=== PATIENT | male | born 1935 | race Caucasian/White ===

== ENCOUNTER 2016-12-14 11:14 | Emergency (ER) | payer MEDICARE, OTHER ==
--- NOTE | 2016-12-14 11:23 | EDM.PDOC ---
[id number] FACE NUMBNESS Time Seen by Provider: 12/14/16 11:23 Source of Information: Reports: Patient, Old records, RN, RN notes reviewed History Limitations: Reports: No limitations - History of Present Illness INITIAL COMMENTS - FREE TEXT/NARRATIVE: Pt c/o generalized weakness for a week or two. Today pt came to the ER to see what the cause might be. He states he felt right sided face numbness yesterday, which is less today but still present. He c/o generalized weakness and fatigue, but yesterday he thought his left arm and leg were worse than the right. 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 Denies BRANCH, visual changes, radiating pain, back or neck pain, chest pain or edema. Timing/Duration: Reports: Week(s): (1-2) Quality (Neuro Complaint): Reports: numbness (Rt face), weakness (generalized) Severity: mild Improves with: Reports: None Worsens with: Reports: None Context, General: Denies: Activity, Exercise, Lifting, Sick contact, Trauma Associated Symptoms: Reports: no other symptoms - Related Data Allergies/ADRs: Allergies Allergy/AdvReac Type Severity Reaction Status Date / Time No Known Allergies Allergy Verified 09/24/16 18:28 Home Meds: Home Meds Carvedilol 12.5 mg PO BID 07/06/16 [History] Fish Oil/[place]-3 Fatty Acids [Fish Oil 1,000 MG] 1 cap PO DAILY 07/06/16 [ History] Furosemide [Lasix] 40 mg PO DAILY 07/06/16 [History] Isosorbide Mononitrate [Imdur] 30 mg PO DAILY 07/06/16 [History] Lisinopril 40 mg PO BEDTIME 07/06/16 [History] Multivitamin [Multiple Vitamins] 1 each PO DAILY 07/06/16 [History] atorvaSTATin [Lipitor] 40 mg PO BEDTIME 07/06/16 [History] Cholecalciferol (Vitamin D3) [Vitamin D3] 1,000 unit PO DAILY 09/24/16 [History] glipiZIDE [Glucotrol] 2.5 mg PO BIDMEALS 09/24/16 [History] Ascorbic Acid 500 mg PO DAILY 09/25/16 [History] Calcium Carbonate/Vitamin D3 [Calcium 600-Vit D3 800 Tablet] 1 each PO BID 09/25 [History] Cyanocobalamin (Vitamin B-12) [Vitamin B-12] 500 mcg PO DAILY 09/25/16 [History] Flaxseed/Omega3,6,9/Fatty Acid [Flax Seed Oil 1,300 mg Softgel] 1,300 mg PO DAILY PRN 09/25/16 [History] Fluocinonide [Lidex 0.05% Crm] 15 gm TOP BID PRN 09/25/16 [History] Magnesium 250 mg PO DAILY PRN 09/25/16 [History] Melatonin 5 mg PO BEDTIME PRN 09/25/16 [History] Levothyroxine 112 mcg PO ACBREAKFAST 12/14/16 [History] Past Medical History HEENT History: Reports: Cataract, Other (see below) Other HEENT History: wears glasses, hx of tonsilitis Cardiovascular History: Reports: Bypass, CAD, Heart Failure, High cholesterol, Hypertension, Stents Respiratory History: Reports: Bronchitis, recurrent, Other (see below) Other Respiratory History: hx of strep throat Musculoskeletal History: Reports: Arthritis, Fracture Endocrine/Metabolic History: Reports: Diabetes, type II Dermatologic History: Reports: Other (see below) Other Dermatologic History: heat rash - Infectious Disease History Infectious Disease History: Reports: Chicken pox, Measles, Mumps - Past Surgical History HEENT Surgical History: Reports: Cataract surgery, Other (see below) Other HEENT Surgeries/Procedures: Pt states that he gets injections into bilateral eyes q 2 month for "diabetic complications" Cardiovascular Surgical History: Reports: Coronary artery bypass, Other (see below) Other Cardiovascular Surgeries/Procedures: triple bypass Respiratory Surgical History: Reports: None Musculoskeletal Surgical History: Reports: None Social & Family History - Family History Family Medical History: Noncontributory - Tobacco Use Smoking Status *Q: Never Smoker Second Hand Smoke Exposure: No - Caffeine Use Caffeine Use: Reports: Coffee - Recreational Drug Use Recreational Drug Use: No - Living Situation & Occupation Living situation: Reports: single, alone Occupation: retired ED ROS GENERAL - Review of Systems Review Of Systems: ROS reveals no pertinent complaints other than HPI. ED EXAM, NEURO - Physical Exam Exam: See Below Exam Limited By: No limitations General Appearance: alert, WD/WN, no apparent distress, other (elderly, well appearing) Eye Exam: bilateral eye: EOMI, normal inspection, PERRL Ears: normal external exam, hearing grossly normal Nose: normal inspection, normal mucosa, no blood Throat/Mouth: Normal inspection, Normal lips, Normal teeth, Normal gums, Normal oropharynx, Normal voice, No airway compromise Head Exam: atraumatic, normocephalic Neck: normal inspection, supple, non-tender, full range of motion. No: lymphadenopathy (L), lymphadenopathy (R) Respiratory/Chest: no respiratory distress, lungs clear, normal breath sounds, no accessory muscle use, chest non-tender Cardiovascular: normal peripheral pulses, regular rate, rhythm, no edema, no gallop, no JVD, no murmur, no rub, extra beats (rare) GI/Abdominal: normal bowel sounds, soft, non tender, no organomegaly, no distention, no abnormal bruit, no mass Neurological: alert, normal mood/affect, normal dorsiflexion, CN II-XII intact, normal plantar flexion, normal reflexes, no motor/sensory deficits, oriented x 3 , other (walks with cane, steady gait) Back Exam: normal inspection, full range of motion, NT Psychiatric: normal affect, normal mood Skin Exam: Warm, Dry, Intact, Normal color, No rash EKG INTERPRETATION EKG Date: 12/14/16 Time: 12:23 Rhythm: other (sinus bradycardia) Rate (beats/min): 59 [place]: normal P-wave: present QRS: other (atrial premature complexes. LBBB) ST-T: normal QT: normal [place]/PQ Interval: First degree AV block. Comparison: NA - no prior EKG Course - Vital Signs Last Recorded V/S: Last Vital Signs Temp 36.8 C 12/14/16 11:48 Pulse 63 12/14/16 11:48 Resp 16 12/14/16 11:48 BP 151/70 H 12/14/16 11:48 Pulse Ox 94 L 12/14/16 11:48 - Orders/Labs/Meds Orders: Active Orders 24 hr Category Date Time Status EKG 12 Lead [EKG Documentation Completion] [RC] STAT Care 12/14/16 12:03 Active Labs: Laboratory Tests 12/14/16 12/14/16 12/14/16 Range/Units 12:15 12:15 13:33 WBC 5.7 (5.0-10.0) 10^3/uL RBC 3.37 L (4.6-6.2) 10^6/uL Hgb 9.8 L (14.0-18.0) g/dL Hct 31.6 L (40.0-54.0) % MCV 93.8 (80-100) fL MCH 29.1 (27.0-34.0) pg MCHC 31.0 L (33.0-35.0) g/dL Plt Count 166 (150-450) 10^3/uL Neut % (Auto) 47.7 (42.2-75.2) % Lymph % (Auto) 31.5 (20.5-50.1) % [place] % (Auto) 18.2 H (2-8) % Eos % (Auto) 2.1 (1.0-3.0) % Baso % (Auto) 0.5 (0.0-1.0) % Sodium 139 (135-145) mmol/L Potassium 4.2 (3.6-5.0) mmol/L Chloride 106 (101-111) mmol/L Carbon Dioxide 27.0 (21.0-31.0) mmol/L Anion Gap 10.2 BUN 33 H (7-18) mg/dL Creatinine 1.6 H (0.6-1.3) mg/dL Est Cr Clr Drug Dosing 35.03 mL/min Estimated GFR (MDRD) 42 BUN/Creatinine Ratio 20.62 Glucose 224 H (74-105) mg/dL Calcium 8.4 (8.4-10.2) mg/dl Total Bilirubin 0.4 (0.2-1.0) mg/dL AST 37 (10-42) IU/L ALT 26 (10-60) IU/L Alkaline Phosphatase 104 (42-121) IU/L Total Protein 6.6 L (6.7-8.2) g/dl Albumin 2.7 L (3.2-5.5) g/dl Globulin 3.9 Albumin/Globulin Ratio 0.69 Urine Color (YELLOW) Urine Appearance (CLEAR) Urine pH (5.0-9.0) Ur Specific [place] (1.005-1.030) Urine Protein (NEGATIVE) Urine Glucose (UA) (NEGATIVE) Urine Ketones (NEGATIVE) Urine Occult Blood (NEGATIVE) Urine Nitrite (NEGATIVE) Urine Bilirubin (NEGATIVE) Urine Urobilinogen (0.2-1.0) mg/dL Ur Leukocyte Esterase (NEGATIVE) Urine RBC /HPF Urine WBC (0-5/HPF) /HPF Ur Epithelial Cells /HPF Urine Mucus /LPF Urine Opiates Screen Negative (NEGATIVE) Ur Oxycodone Screen Negative (NEGATIVE) Urine Methadone Screen Negative (NEGATIVE) Ur Barbiturates Screen Negative (NEGATIVE) U Tricyclic Antidepress Negative (NEGATIVE) Ur Phencyclidine Scrn Negative (NEGATIVE) Ur Amphetamine Screen Negative (NEGATIVE) U Methamphetamines Scrn Negative (NEGATIVE) Urine MDMA Screen Negative (NEGATIVE) U Benzodiazepines Scrn Negative (NEGATIVE) Urine Cocaine Screen Negative (NEGATIVE) U Marijuana (THC) Screen Negative (NEGATIVE) 12/14/16 Range/Units 13:33 WBC (5.0-10.0) 10^3/uL RBC (4.6-6.2) 10^6/uL Hgb (14.0-18.0) g/dL Hct (40.0-54.0) % MCV (80-100) fL MCH (27.0-34.0) pg MCHC (33.0-35.0) g/dL Plt Count (150-450) 10^3/uL Neut % (Auto) (42.2-75.2) % Lymph % (Auto) (20.5-50.1) % [place] % (Auto) (2-8) % Eos % (Auto) (1.0-3.0) % Baso % (Auto) (0.0-1.0) % Sodium (135-145) mmol/L Potassium (3.6-5.0) mmol/L Chloride (101-111) mmol/L Carbon Dioxide (21.0-31.0) mmol/L Anion Gap BUN (7-18) mg/dL Creatinine (0.6-1.3) mg/dL Est Cr Clr Drug Dosing mL/min Estimated GFR (MDRD) BUN/Creatinine Ratio Glucose (74-105) mg/dL Calcium (8.4-10.2) mg/dl Total Bilirubin (0.2-1.0) mg/dL AST (10-42) IU/L ALT (10-60) IU/L Alkaline Phosphatase (42-121) IU/L Total Protein (6.7-8.2) g/dl Albumin (3.2-5.5) g/dl Globulin Albumin/Globulin Ratio Urine Color Yellow (YELLOW) Urine Appearance Slightly cloudy (CLEAR) Urine pH 5.0 (5.0-9.0) Ur Specific [place] 1.015 (1.005-1.030) Urine Protein 100 H (NEGATIVE) Urine Glucose (UA) Negative (NEGATIVE) Urine Ketones Negative (NEGATIVE) Urine Occult Blood Negative (NEGATIVE) Urine Nitrite Negative (NEGATIVE) Urine Bilirubin Negative (NEGATIVE) Urine Urobilinogen 0.2 (0.2-1.0) mg/dL Ur Leukocyte Esterase Trace H (NEGATIVE) Urine RBC 0-5 /HPF Urine WBC 5-10 H (0-5/HPF) /HPF Ur Epithelial Cells Rare /HPF Urine Mucus Rare /LPF Urine Opiates Screen (NEGATIVE) Ur Oxycodone Screen (NEGATIVE) Urine Methadone Screen (NEGATIVE) Ur Barbiturates Screen (NEGATIVE) U Tricyclic Antidepress (NEGATIVE) Ur Phencyclidine Scrn (NEGATIVE) Ur Amphetamine Screen (NEGATIVE) U Methamphetamines Scrn (NEGATIVE) Urine MDMA Screen (NEGATIVE) U Benzodiazepines Scrn (NEGATIVE) Urine Cocaine Screen (NEGATIVE) U Marijuana (THC) Screen (NEGATIVE) - Radiology Interpretation Free Text/Narrative:: CT head per rad report shows no CT evidence for acute intracranial pathology. CT Results Date: 12/14/16 - Re-Assessments/Exams Free Text/Narrative Re-Assessment/Exam: 12/14/16 I explained the exam findings, results of all diagnostic tests, working diagnosis, and any potential or additionally considered diagnoses, treatment/ disposition plan, self/home care instructions, rational for the diagnosis/ treatment plan/disposition plan, anticipated course of illness, and follow up instructions to the pt and/or pts family or guardian. The pt and/or pts family or guardian acknowledges understanding of the above explanation(s), and of the signs and symptoms which should prompt the return of the pt to the ER should those or any other concerning symptoms develop. Departure - Departure Time of Disposition: 14:03 Disposition: Home, Self-Care 01 Condition: fair Clinical Impression: Right facial numbness, Generalized weakness, Chronic anemia CKD (chronic kidney disease) Qualifiers: Chronic kidney disease stage: unspecified stage Qualified Code(s): N18.9 - Chronic kidney disease, unspecified Instructions: Weakness Forms: ED Department Discharge Additional Instructions: Watch for any worsening of symptoms, or development of new symptoms and return to the ER if needed. Follow up in clinic with your primary doctor in 2 to 3 days for recheck and further evaluation. - My Orders Last 24 Hours: My Active Orders 12/14/16 12:03 EKG 12 Lead [EKG Documentation Completion] [RC] STAT - Assessment/Plan Last 24 Hours: My Active Orders 12/14/16 12:03 EKG 12 Lead [EKG Documentation Completion] [RC] STAT
[2016-12-14 11:49] VITALS: BP 151/70
--- NOTE | 2016-12-16 07:20 | EKG ---
12/14/2016- SCOUT MIKE - EKG done on an 81-year-old male, showing sinus bradycardia, heart rate of 59 beats per minute, left bundle branch block, and first-degree AV block. [facility] /[id number]
== END 2016-12-14 14:27 | disposition home or self-care (01) ==
LOC: DL.ED 11:14
DX: R53.1 Weakness (principal); R20.0 Anesthesia of skin; I13.0 Hypertensive heart and chronic kidney disease with heart failure and stage 1 through stage 4 chronic kidney disease, or unspecified chronic kidney disease; E11.22 Type 2 diabetes mellitus with diabetic chronic kidney disease; N18.9 Chronic kidney disease, unspecified; I50.9 Heart failure, unspecified; D64.9 Anemia, unspecified; I25.810 Atherosclerosis of coronary artery bypass graft(s) without angina pectoris; E78.00 Pure hypercholesterolemia, unspecified; M19.90 Unspecified osteoarthritis, unspecified site; E11.9 Type 2 diabetes mellitus without complications; Z79.899 Other long term (current) drug therapy; Z98.49 Cataract extraction status, unspecified eye
CPT/HCPCS: 36415; 70450; 80053; 80305; 81001; 85025; 93005; 93010; 99283; 99284

== ENCOUNTER 2017-01-07 12:40 | Emergency (ER) | payer MEDICARE, OTHER ==
[2017-01-07] MEDS: Sodium Chloride 0.9% 1,000 ML IV SCH ×2 (13:00→14:42)
[2017-01-07 13:28] LABS: CHLORIDE,CL 104 mmol/L (101-111); SODIUM,NA 135 mmol/L (135-145)
[2017-01-07] MEDS ORDERED: Norepinephrine 4 MG in Dextrose 5% in Water 246 ML IV SCH ×2 (13:45)
[2017-01-07 14:09] VITALS: BP 108/41
--- NOTE | 2017-01-07 14:10 | EDM.PDOC ---
ED HPI GENERAL MEDICAL PROBLEM - General Chief Complaint: Cardiovascular Problem Stated Complaint: [id number] CHEST PAIN SOB LOW BP Time Seen by Provider: 01/07/17 13:00 Source of Information: Reports: Patient, Family History Limitations: Reports: No Limitations - History of Present Illness INITIAL COMMENTS - FREE TEXT/NARRATIVE: This 81 yo male patient reports to the ED with increased shortness of breath, chest discomfort and low blood pressure. The patient's daughter reports the patient has been having less energy throughout the week. The patient was recently in [facility] for a stroke. During that visit, the patient had an MRI, an Echo and eventually had a VQ scan. The patient's daughter reports the patient has continued to get worse (lower energy and increased shortness of breath). Onset: Gradual Duration: Week(s):, Constant, Getting Worse Location: Reports: Generalized Quality: Reports: Dull Severity: Moderate Improves with: Reports: None Worsens with: Reports: None Associated Symptoms: Reports: Other - Related Data Allergies Allergy/AdvReac Type Severity Reaction Status Date / Time No Known Allergies Allergy Verified 09/24/16 18:28 Home Meds: Home Meds Fish Oil/[place]-3 Fatty Acids [Fish Oil 1,000 MG] 1 cap PO DAILY 07/06/16 [ History] Furosemide [Lasix] 40 mg PO BID 07/06/16 [History] Isosorbide Mononitrate [Imdur] 30 mg PO BID 07/06/16 [History] Lisinopril 40 mg PO DAILY 07/06/16 [History] Multivitamin [Multiple Vitamins] 1 each PO DAILY 07/06/16 [History] atorvaSTATin [Lipitor] 40 mg PO BEDTIME 07/06/16 [History] Cholecalciferol (Vitamin D3) [Vitamin D3] 1,000 unit PO DAILY 09/24/16 [History] glipiZIDE [Glucotrol] 2.5 mg PO BIDMEALS 09/24/16 [History] Ascorbic Acid 500 mg PO DAILY 09/25/16 [History] Calcium Carbonate/Vitamin D3 [Calcium 600-Vit D3 800 Tablet] 800 units PO BID [History] Cyanocobalamin (Vitamin B-12) [Vitamin B-12] 500 mcg PO DAILY 09/25/16 [History] Flaxseed/Omega3,6,9/Fatty Acid [Flax Seed Oil 1,300 mg Softgel] 1,300 mg PO DAILY PRN 09/25/16 [History] Fluocinonide [Lidex 0.05% Crm] 15 gm TOP BID PRN 09/25/16 [History] Magnesium 250 mg PO DAILY PRN 09/25/16 [History] Melatonin 5 mg PO BEDTIME PRN 09/25/16 [History] Levothyroxine 112 mcg PO ACBREAKFAST 12/14/16 [History] Carvedilol 1.5 tab PO BID 01/07/17 [History] Potassium Chloride 20 meq PO BID 01/07/17 [History] Past Medical History HEENT History: Reports: Cataract Other HEENT History: wears glasses, hx of tonsilitis Cardiovascular History: Reports: Bypass, CAD, Heart Failure, High Cholesterol, Hypertension, Stents Respiratory History: Reports: Bronchitis, Recurrent Other Respiratory History: hx of strep throat Musculoskeletal History: Reports: Arthritis, Fracture Endocrine/Metabolic History: Reports: Diabetes, Type II Dermatologic History: Reports: Other (See Below) Other Dermatologic History: heat rash - Infectious Disease History Infectious Disease History: Reports: Chicken Pox, Measles, Mumps - Past Surgical History HEENT Surgical History: Reports: Cataract Surgery Cardiovascular Surgical History: Reports: Coronary Artery Bypass Musculoskeletal Surgical History: Reports: None Social & Family History - Family History Family Medical History: Noncontributory - Tobacco Use Smoking Status *Q: Former Smoker Used Tobacco, but Quit: Yes Month Tobacco Last Used: October Second Hand Smoke Exposure: No - Caffeine Use Caffeine Use: Reports: Coffee - Recreational Drug Use Recreational Drug Use: No - Living Situation & Occupation Living situation: Reports: Single, Alone Occupation: Retired ED ROS GENERAL - Review of Systems Review Of Systems: ROS reveals no pertinent complaints other than HPI. ED EXAM, GENERAL - Physical Exam Exam: See Below Exam Limited By: No Limitations General Appearance: Alert, WD/WN, Severe Distress, Thin Eye Exam: Bilateral Eye: EOMI, Normal Inspection, PERRL Ears: Normal External Exam, Normal Canal, Hearing Grossly Normal, Normal TMs Nose: Normal Inspection, Normal Mucosa, No Blood Throat/Mouth: Normal Inspection, Normal Lips, Normal Teeth, Normal Gums, Normal Oropharynx, Normal Voice, No Airway Compromise Head: Atraumatic, Normocephalic Neck: Normal Inspection, Supple, Non-Tender, Full Range of Motion Respiratory/Chest: No Respiratory Distress, No Accessory Muscle Use, Chest Non- Tender, Decreased Breath Sounds Cardiovascular: Normal Peripheral Pulses, Regular Rate, Rhythm, No Edema, No Gallop, No JVD, No Rub, Systolic Murmur GI/Abdominal: Normal Bowel Sounds, Soft, Non-Tender, No Organomegaly, No Distention, No Abnormal Bruit, No Mass (Male) Exam: Deferred Rectal (Males) Exam: Deferred Back Exam: Normal Inspection, Full Range of Motion, NT Extremities: Normal Inspection, Normal Range of Motion, Non-Tender, Normal Capillary Refill, No Pedal Edema Neurological: Alert, Oriented, CN II-XII Intact, Normal Cognition Psychiatric: Normal Affect, Normal Mood Skin Exam: Warm, Dry, Intact, Normal Color, No Rash Lymphatic: No Adenopathy Course - Vital Signs Last Recorded V/S: Last Vital Signs Temp 36.3 C 01/07/17 12:56 Pulse 67 01/07/17 12:56 Resp 18 01/07/17 14:09 BP 108/41 L 01/07/17 14:09 Pulse Ox 94 L 01/07/17 14:09 - Orders/Labs/Meds Orders: Active Orders 24 hr Category Date Time Status EKG Documentation Completion [RC] URGENT Care 01/07/17 12:50 Active Norepinephrine 4 MG in D5W @ 2 MCG/MIN(250ml) Med 01/07/17 13:45 Ordered Norepinephrine [Levophed] 4 mg Dextrose 5% in Water 246 ml IV TITRATE Medication Orders Norepinephrine Bitartrate 4 mg (/ Dextrose/Water) 250 mls @ 7.5 mls/hr IV TITRATE IRAJ; 2 MCG/MIN PRN Reason: Protocol Last Admin: 01/07/17 13:55 Dose: 2 mcg/min, 7.5 mls/hr Labs: Laboratory Tests 01/07/17 01/07/17 01/07/17 Range/Units 12:54 12:54 12:54 WBC 7.0 (5.0-10.0) 10^3/uL RBC 3.97 L (4.6-6.2) 10^6/uL Hgb 11.5 L (14.0-18.0) g/dL Hct 35.8 L (40.0-54.0) % MCV 90.2 (80-100) fL MCH 29.0 (27.0-34.0) pg MCHC 32.1 L (33.0-35.0) g/dL Plt Count 199 (150-450) 10^3/uL Neut % (Auto) 51.6 (42.2-75.2) % Lymph % (Auto) 26.3 (20.5-50.1) % [place] % (Auto) 20.0 H (2-8) % Eos % (Auto) 1.7 (1.0-3.0) % Baso % (Auto) 0.4 (0.0-1.0) % D-Dimer, Quantitative 1340 H (0-400) ng/mL Sodium 135 (135-145) mmol/L Potassium 5.2 H (3.6-5.0) mmol/L Chloride 104 (101-111) mmol/L Carbon Dioxide 21.0 (21.0-31.0) mmol/L Anion Gap 15.2 BUN 94 H (7-18) mg/dL Creatinine 2.1 H (0.6-1.3) mg/dL Est Cr Clr Drug Dosing TNP Estimated GFR (MDRD) 30 BUN/Creatinine Ratio 44.76 Glucose 242 H (74-105) mg/dL Calcium 8.8 (8.4-10.2) mg/dl Total Bilirubin 0.5 (0.2-1.0) mg/dL AST 46 H (10-42) IU/L ALT 40 (10-60) IU/L Alkaline Phosphatase 113 (42-121) IU/L Troponin I 0.03 H* (0.00-0.02) ng/ml B-Natriuretic Peptide 229 H (0-100) pg/ml Total Protein 7.6 (6.7-8.2) g/dl Albumin 2.9 L (3.2-5.5) g/dl Globulin 4.7 Albumin/Globulin Ratio 0.62 Meds: Medications Generic Name Dose Route Start Last Admin Trade Name Freq PRN Reason Stop Dose Admin Norepinephrine Bitartrate 4 mg 250 mls @ 7.5 mls/hr 01/07/17 13:45 01/07/17 13:55 / Dextrose/Water IV 2 mcg/min TITRATE IRAJ 7.5 mls/hr Protocol Administration 2 MCG/MIN - Re-Assessments/Exams Free Text/Narrative Re-Assessment/Exam: 01/07/17 14:13 [employer] helicopter is currently on another call. [employer] fixed wing reports 80 minutes out. A call was placed to [facility] to have their flight team come to [place] to supervisor opening and picking the patient. Departure - Departure Time of Disposition: 14:10 Disposition: DC/Tfer to Acute Hospital 02 Reason for Transfer *Q: Other Condition: serious Clinical Impression: Shortness of breath Hypotension Qualifiers: Hypotension type: unspecified hypotension type Qualified Code(s): I95.9 - Hypotension, unspecified Forms: Interfacility Transfer EMTALA Care Plan Goals: Discussed the history, examination, lab and EKG results with Dr. Hernandez ( [facility] ED provider). Dr. Hernandez accepted the patient for transfer to [facility] in [place]. The crew from [facility] ([place]) will be transporting the patient to [place]. - My Orders Last 24 Hours: My Active Orders 01/07/17 12:50 EKG Documentation Completion [RC] URGENT 01/07/17 13:45 Norepinephrine 4 MG in D5W @ 2 MCG/MIN(250ml) Norepinephrine [Levophed] 4 mg Dextrose 5% in Water 246 ml IV TITRATE - Assessment/Plan Last 24 Hours: My Active Orders 01/07/17 12:50 EKG Documentation Completion [RC] URGENT 01/07/17 13:45 Norepinephrine 4 MG in D5W @ 2 MCG/MIN(250ml) Norepinephrine [Levophed] 4 mg Dextrose 5% in Water 246 ml IV TITRATE
--- NOTE | 2017-01-10 14:22 | EKG ---
01/07/2017 - SCOUT MIKE - EKG per my reading, shows left bundle-branch block. [facility] /[id number]
== END 2017-01-07 15:20 ==
LOC: DL.ED 12:40
DX: I95.9 Hypotension, unspecified (principal); I25.10 Atherosclerotic heart disease of native coronary artery without angina pectoris; E78.00 Pure hypercholesterolemia, unspecified; I11.0 Hypertensive heart disease with heart failure; I50.9 Heart failure, unspecified; E11.9 Type 2 diabetes mellitus without complications; M19.90 Unspecified osteoarthritis, unspecified site; Z79.899 Other long term (current) drug therapy; Z98.49 Cataract extraction status, unspecified eye; Z95.1 Presence of aortocoronary bypass graft; Z87.891 Personal history of nicotine dependence
CPT/HCPCS: 36415; 80053; 83880; 84484; 85025; 85379; 93005; 96361; 96365; 99285; J7030; J7060; 93010; 99284

== ENCOUNTER 2018-03-04 17:50 | Emergency (ER) | payer OTHER, MEDICARE ==
[2018-03-04 18:17] VITALS: BP 149/67
--- NOTE | 2018-03-04 18:37 | EDM.PDOC ---
ED HPI GENERAL MEDICAL PROBLEM - General Chief Complaint: Eye Problems Stated Complaint: RED EYE Time Seen by Provider: 03/04/18 18:25 Source of Information: Reports: Patient History Limitations: Reports: No Limitations - History of Present Illness INITIAL COMMENTS - FREE TEXT/NARRATIVE: This 82 yo male patient reports to the ED with redness in his left eye for the past 2 days. The patient reports that he does not have any pain and has not noticed any drainage from the eye. The patient denies any falls or trauma to the eye. Onset Date: 03/02/18 Location: Reports: Face Severity: Mild Improves with: Reports: None Worsens with: Reports: None Associated Symptoms: Reports: No Other Symptoms - Related Data Allergies Allergy/AdvReac Type Severity Reaction Status Date / Time No Known Allergies Allergy Verified 09/24/16 18:28 Home Meds: Home Meds Fish Oil/[place]-3 Fatty Acids [Fish Oil 1,000 MG] 1 cap PO DAILY 07/06/16 [ History] Furosemide [Lasix] 40 mg PO BID 07/06/16 [History] Isosorbide Mononitrate [Imdur] 30 mg PO BID 07/06/16 [History] Lisinopril 40 mg PO DAILY 07/06/16 [History] Multivitamin [Multiple Vitamins] 1 each PO DAILY 07/06/16 [History] atorvaSTATin [Lipitor] 40 mg PO BEDTIME 07/06/16 [History] Cholecalciferol (Vitamin D3) [Vitamin D3] 1,000 unit PO DAILY 09/24/16 [History] glipiZIDE [Glucotrol] 2.5 mg PO BIDMEALS 09/24/16 [History] Ascorbic Acid 500 mg PO DAILY 09/25/16 [History] Calcium Carbonate/Vitamin D3 [Calcium 600-Vit D3 800 Tablet] 800 units PO BID [History] Cyanocobalamin (Vitamin B-12) [Vitamin B-12] 500 mcg PO DAILY 09/25/16 [History] Flaxseed/Omega3,6,9/Fatty Acid [Flax Seed Oil 1,300 mg Softgel] 1,300 mg PO DAILY PRN 09/25/16 [History] Fluocinonide [Lidex 0.05% Crm] 15 gm TOP BID PRN 09/25/16 [History] Magnesium 250 mg PO DAILY PRN 09/25/16 [History] Melatonin 5 mg PO BEDTIME PRN 09/25/16 [History] Levothyroxine 112 mcg PO ACBREAKFAST 12/14/16 [History] Carvedilol 1.5 tab PO BID 01/07/17 [History] Potassium Chloride 20 meq PO BID 01/07/17 [History] Past Medical History HEENT History: Reports: Cataract Other HEENT History: wears glasses, hx of tonsilitis Cardiovascular History: Reports: Bypass, CAD, Heart Failure, High Cholesterol, Hypertension, Stents Respiratory History: Reports: Bronchitis, Recurrent Other Respiratory History: hx of strep throat Musculoskeletal History: Reports: Arthritis, Fracture Endocrine/Metabolic History: Reports: Diabetes, Type II Dermatologic History: Reports: Other (See Below) Other Dermatologic History: heat rash - Infectious Disease History Infectious Disease History: Reports: Chicken Pox, Measles, Mumps - Past Surgical History HEENT Surgical History: Reports: Cataract Surgery Cardiovascular Surgical History: Reports: Coronary Artery Bypass Musculoskeletal Surgical History: Reports: None Social & Family History - Family History Family Medical History: Noncontributory - Tobacco Use Smoking Status *Q: Never Smoker - Caffeine Use Caffeine Use: Reports: Coffee, Soda, Tea - Recreational Drug Use Recreational Drug Use: No - Living Situation & Occupation Living situation: Reports: Single, Alone Occupation: Retired ED ROS GENERAL - Review of Systems Review Of Systems: ROS reveals no pertinent complaints other than HPI. ED EXAM GENERAL W FULL EYE - Physical Exam Exam: See Below Exam Limited By: No Limitations General Appearance: Alert, WD/WN, No Apparent Distress Eye Exam: Left Eye: Conjunctival Injection, Bilateral Eye: EOMI, PERRL Conjunctiva & Sclera: Right: Normal Appearance, Left: Conjunctival Edema Cornea Exam: Bilateral: Normal Appearance Extraocular Movements: Bilateral: Intact Pupils: Normal Accommodation Pupillary Reaction: Bilateral: Brisk Ears: Normal External Exam, Normal Canal, Hearing Grossly Normal, Normal TMs Nose: Normal Inspection, Normal Mucosa, No Blood Throat/Mouth: Normal Inspection, Normal Lips, Normal Teeth, Normal Gums, Normal Oropharynx, Normal Voice, No Airway Compromise Head: Atraumatic, Normocephalic Neck: Normal Inspection, Supple, Non-Tender, Full Range of Motion Respiratory/Chest: No Respiratory Distress, Lungs Clear, Normal Breath Sounds, No Accessory Muscle Use, Chest Non-Tender Cardiovascular: Normal Peripheral Pulses, Regular Rate, Rhythm, No Edema, No Gallop, No JVD, No Rub, Systolic Murmur GI/Abdominal: Normal Bowel Sounds, Soft, Non-Tender, No Organomegaly, No Distention, No Abnormal Bruit, No Mass (Male) Exam: Deferred Rectal (Males) Exam: Deferred Back Exam: Normal Inspection, Full Range of Motion, NT Extremities: Normal Inspection, Normal Range of Motion, Non-Tender, Normal Capillary Refill, No Pedal Edema Neurological: Alert, Oriented, CN II-XII Intact, Normal Cognition, Normal Gait, Normal Reflexes, No Motor/Sensory Deficits Psychiatric: Normal Affect, Normal Mood Skin Exam: Warm, Dry, Intact, Normal Color, No Rash Lymphatic: No Adenopathy Course - Vital Signs Last Recorded V/S: Last Vital Signs Temp 37.3 C 03/04/18 18:15 Pulse 84 03/04/18 18:15 Resp 18 03/04/18 18:15 BP 149/67 H 03/04/18 18:15 Pulse Ox 96 03/04/18 18:15 Departure - Departure Time of Disposition: 18:33 Disposition: Home, Self-Care 01 Condition: Fair Clinical Impression: Scleral hemorrhage of left eye - Discharge Information *PRESCRIPTION DRUG MONITORING PROGRAM REVIEWED*: Not Applicable *COPY OF PRESCRIPTION DRUG MONITORING REPORT IN PATIENT ANDREW: Not Applicable Instructions: Subconjunctival Hemorrhage Referrals: PCP,None [Primary Care Provider] - Forms: ED Department Discharge Care Plan Goals: The patient was advised of the examination results during the visit. The patient was encouraged to continue to monitor his eye for any additional symptoms or drainage. If the patient has any additional symptoms or concerns, the patient should follow-up with his primary care facility or return to the emergency department.
== END 2018-03-04 18:40 | disposition home or self-care (01) ==
LOC: DL.ED 17:50
DX: H11.32 Conjunctival hemorrhage, left eye (principal); I11.0 Hypertensive heart disease with heart failure; I50.9 Heart failure, unspecified; I25.10 Atherosclerotic heart disease of native coronary artery without angina pectoris; E11.9 Type 2 diabetes mellitus without complications; Z95.1 Presence of aortocoronary bypass graft; Z79.899 Other long term (current) drug therapy; Z79.84 Long term (current) use of oral hypoglycemic drugs
CPT/HCPCS: 99282

== ENCOUNTER 2018-12-05 11:26 | Emergency (ER) | payer MEDICARE, OTHER ==
--- NOTE | 2018-12-05 12:45 | EDM.PDOC ---
ED HPI GENERAL MEDICAL PROBLEM - General Chief Complaint: Cardiovascular Problem Stated Complaint: HIGH BP Time Seen by Provider: 12/05/18 12:35 Source of Information: Reports: Patient History Limitations: Reports: No Limitations - History of Present Illness INITIAL COMMENTS - FREE TEXT/NARRATIVE: This 83 yo male patient [facility] elevated blood pressure (236/91) and having increased weakness. The patient reports he has not been feeling well for the past 2 weeks, but noticed his blood pressure and blood sugar were both elevated this morning. The patient reports he took all medications as prescribed this morning at 0630. The patient reports his blood pressure normally runs in the 140's systolic. The patient denies any chest pain , cough or other symptoms at this time. Onset: Today Duration: Week(s): (2 weeks of increased weakness) Location: Reports: Other Quality: Reports: Other Severity: Moderate Improves with: Reports: None Worsens with: Reports: None Context: Reports: Other Associated Symptoms: Reports: No Other Symptoms - Related Data Allergies Allergy/AdvReac Type Severity Reaction Status Date / Time No Known Allergies Allergy Verified 12/05/18 11:57 Home Meds: Home Meds Fish Oil/[place]-3 Fatty Acids [Fish Oil 1,000 MG] 1 cap PO DAILY 07/06/16 [ History] Furosemide [Lasix] 40 mg PO BID 07/06/16 [History] Isosorbide Mononitrate [Imdur] 30 mg PO BID 07/06/16 [History] Lisinopril 40 mg PO DAILY 07/06/16 [History] Multivitamin [Multiple Vitamins] 1 each PO DAILY 07/06/16 [History] atorvaSTATin [Lipitor] 40 mg PO BEDTIME 07/06/16 [History] Cholecalciferol (Vitamin D3) [Vitamin D3] 1,000 unit PO DAILY 09/24/16 [History] glipiZIDE [Glucotrol] 2.5 mg PO BIDMEALS 09/24/16 [History] Ascorbic Acid 500 mg PO DAILY 09/25/16 [History] Calcium Carbonate/Vitamin D3 [Calcium 600-Vit D3 800 Tablet] 800 units PO BID [History] Cyanocobalamin (Vitamin B-12) [Vitamin B-12] 500 mcg PO DAILY 09/25/16 [History] Flaxseed/Omega3,6,9/Fatty Acid [Flax Seed Oil 1,300 mg Softgel] 1,300 mg PO DAILY PRN 09/25/16 [History] Fluocinonide [Lidex 0.05% Crm] 15 gm TOP BID PRN 09/25/16 [History] Magnesium 250 mg PO DAILY PRN 09/25/16 [History] Melatonin 5 mg PO BEDTIME PRN 09/25/16 [History] Levothyroxine 112 mcg PO ACBREAKFAST 12/14/16 [History] Carvedilol 1.5 tab PO BID 01/07/17 [History] Potassium Chloride 20 meq PO BID 01/07/17 [History] Past Medical History HEENT History: Reports: Cataract Other HEENT History: wears glasses, hx of tonsilitis Cardiovascular History: Reports: Bypass, CAD, Heart Failure, High Cholesterol, Hypertension, Stents Respiratory History: Reports: Bronchitis, Recurrent Other Respiratory History: hx of strep throat Gastrointestinal History: Reports: None Genitourinary History: Reports: None Musculoskeletal History: Reports: Arthritis, Fracture Neurological History: Reports: None Psychiatric History: Reports: None Endocrine/Metabolic History: Reports: Diabetes, Type II Hematologic History: Reports: None Immunologic History: Reports: None Oncologic (Cancer) History: Reports: None Dermatologic History: Reports: Other (See Below) Other Dermatologic History: heat rash - Infectious Disease History Infectious Disease History: Reports: Chicken Pox, Measles, Mumps - Past Surgical History Head Surgeries/Procedures: Reports: None HEENT Surgical History: Reports: Cataract Surgery Cardiovascular Surgical History: Reports: Coronary Artery Bypass Musculoskeletal Surgical History: Reports: None Social & Family History - Family History Family Medical History: Noncontributory - Tobacco Use Smoking Status *Q: Unknown Ever Smoked - Caffeine Use Caffeine Use: Reports: None - Recreational Drug Use Recreational Drug Use: No - Living Situation & Occupation Living situation: Reports: Single, Alone Occupation: Retired ED ROS GENERAL - Review of Systems Review Of Systems: ROS reveals no pertinent complaints other than HPI. ED EXAM, GENERAL - Physical Exam Exam: See Below Exam Limited By: No Limitations General Appearance: Alert, WD/WN, No Apparent Distress Eye Exam: Bilateral Eye: EOMI, Normal Inspection, PERRL Ears: Normal External Exam Nose: Normal Inspection, Normal Mucosa, No Blood Throat/Mouth: Normal Inspection, Normal Lips, Normal Teeth, Normal Gums, Normal Oropharynx, Normal Voice, No Airway Compromise Head: Atraumatic, Normocephalic Respiratory/Chest: No Respiratory Distress, Lungs Clear, Normal Breath Sounds, No Accessory Muscle Use, Chest Non-Tender Cardiovascular: Normal Peripheral Pulses, No Edema, No Gallop, No JVD, No Rub, Systolic Murmur, Irregularly Irregular GI/Abdominal: Normal Bowel Sounds, Soft, Non-Tender, No Organomegaly, No Distention, No Abnormal Bruit, No Mass (Male) Exam: Deferred Rectal (Males) Exam: Deferred Back Exam: Normal Inspection, Full Range of Motion, NT Extremities: Normal Inspection, Normal Range of Motion, Non-Tender, Normal Capillary Refill, No Pedal Edema Neurological: Alert, Oriented, CN II-XII Intact, Normal Cognition, Normal Gait, Normal Reflexes, No Motor/Sensory Deficits Psychiatric: Normal Affect, Normal Mood Skin Exam: Warm, Dry, Intact, Normal Color, No Rash Lymphatic: No Adenopathy Course - Vital Signs Last Recorded V/S: Last Vital Signs Temp 36.9 C 12/05/18 13:14 Pulse 69 12/05/18 13:14 Resp 22 H 12/05/18 13:14 BP 203/76 H 12/05/18 13:40 Pulse Ox 92 L 12/05/18 13:14 - Orders/Labs/Meds Orders: Active Orders 24 hr Category Date Time Status EKG Documentation Completion [RC] URGENT Care 12/05/18 12:40 Ordered CULTURE URINE [RM] Urgent Lab 12/05/18 13:06 Received Heparin Sodium/0.45% NaCl [Heparin 25,000 Units in 1/2 Med 12/05/18 13:30 Ordered NS 500 ML] 25,000 units in 500 ml IV ONETIME Medication Orders Heparin Sodium/Sodium Chloride (Heparin 25,000 Units In 1/2 Ns 500 Ml) 25,000 units in 500 mls @ 18.833 mls/hr IV ONETIME ONE Stop: 12/06/18 16:02 Last Admin: 12/05/18 13:40 Dose: 12 units/kg/hr, 18.833 mls/hr Labs: Laboratory Tests 12/05/18 12/05/18 12/05/18 Range/Units 12:49 12:49 13:06 WBC 5.2 (5.0-10.0) 10^3/uL RBC 4.13 L (4.6-6.2) 10^6/uL Hgb 12.3 L (14.0-18.0) g/dL Hct 38.0 L (40.0-54.0) % MCV 92.0 (80-100) fL MCH 29.8 (27.0-34.0) pg MCHC 32.4 L (33.0-35.0) g/dL Plt Count 161 (150-450) 10^3/uL Neut % (Auto) 45.2 (42.2-75.2) % Lymph % (Auto) 30.4 (20.5-50.1) % [place] % (Auto) 20.3 H (2-8) % Eos % (Auto) 3.7 H (1.0-3.0) % Baso % (Auto) 0.4 (0.0-1.0) % Add Manual Diff Yes Neutrophils % (Manual) 45 (42-75) % Lymphocytes % (Manual) 26 (20-50) % Monocytes % (Manual) 26 H (2-8) % Eosinophils % (Manual) 3 (1-3) % Sodium 139 (135-145) mmol/L Potassium 3.9 (3.6-5.0) mmol/L Chloride 104 (101-111) mmol/L Carbon Dioxide 25.0 (21.0-31.0) mmol/L Anion Gap 13.9 BUN 29 H D (7-18) mg/dL Creatinine 1.4 H (0.6-1.3) mg/dL Est Cr Clr Drug Dosing 38.68 mL/min Estimated GFR (MDRD) 48 BUN/Creatinine Ratio 20.71 Glucose 92 (74-105) mg/dL Calcium 8.5 (8.4-10.2) mg/dl Total Bilirubin 0.8 (0.2-1.0) mg/dL AST 29 (10-42) IU/L ALT 15 (10-60) IU/L Alkaline Phosphatase 91 (42-121) IU/L Troponin I 0.24 H* (0.00-0.02) ng/ml Total Protein 7.2 (6.7-8.2) g/dl Albumin 2.9 L (3.2-5.5) g/dl Globulin 4.3 Albumin/Globulin Ratio 0.67 Urine Color Dark yellow (YELLOW) Urine Appearance Slightly cloudy (CLEAR) Urine pH 5.5 (5.0-9.0) Ur Specific [place] 1.020 (1.005-1.030) Urine Protein >=300 H (NEGATIVE) Urine Glucose (UA) 100 H (NEGATIVE) Urine Ketones Negative (NEGATIVE) Urine Occult Blood Negative (NEGATIVE) Urine Nitrite Negative (NEGATIVE) Urine Bilirubin Negative (NEGATIVE) Urine Urobilinogen 1.0 (0.2-1.0) mg/dL Ur Leukocyte Esterase Small H (NEGATIVE) Urine RBC 5-10 H /HPF Urine WBC 10-20 H (0-5/HPF) /HPF Ur Epithelial Cells Few /HPF Urine Bacteria Few (0-FEW/HPF) /HPF Hyaline Casts Moderate H /LPF Urine Mucus Rare /LPF Meds: Medications Generic Name Dose Route Start Last Admin Trade Name Freq PRN Reason Stop Dose Admin Heparin Sodium/Sodium Chloride 25,000 units in 500 mls @ 18.833 mls/hr 13:30 12/05/18 13:40 Heparin 25,000 Units In 1/2 Ns 500 Ml IV 12/06/18 16:02 12 units/kg/hr ONETIME ONE 18.833 mls/hr Administration 12 UNITS/KG/HR Discontinued Medications Generic Name Dose Route Start Last Admin Trade Name Freq PRN Reason Stop Dose Admin Aspirin 324 mg 12/05/18 13:28 12/05/18 13:37 Aspirin PO 12/05/18 13:29 324 mg ONETIME ONE Administration Heparin Sodium (Porcine) 4,000 units 12/05/18 13:28 12/05/18 13:37 Heparin Sodium IVPUSH 12/05/18 13:29 4,000 units .BOLUS ONE Administration Nitroglycerin 0.4 mg 12/05/18 13:37 12/05/18 13:40 Nitrostat SL 12/05/18 13:38 0.4 mg ONETIME ONE Administration Departure - Departure Time of Disposition: 13:42 Disposition: DC/Tfer to Acute Hospital 02 Reason for Transfer *Q: Other Condition: Serious Clinical Impression: Hypertensive emergency, NSTEMI (non-ST elevated myocardial infarction), Elevated troponin Forms: Interfacility Transfer EMTALA Care Plan Goals: Discussed the patient's history, examination, lab, EKG and current treatments with Dr. Bhakta ([facility] ED). Dr. Bhakta advised to give the patient a dose of sublingual Nitro to lower the patient's blood pressure. The patient will be transported by [facility]. - My Orders Last 24 Hours: My Active Orders 12/05/18 12:40 EKG Documentation Completion [RC] URGENT 12/05/18 13:06 CULTURE URINE [RM] Urgent 12/05/18 13:30 Heparin Sodium/0.45% NaCl [Heparin 25,000 Units in 1/2 NS 500 ML] 25,000 units in 500 ml IV ONETIME - Assessment/Plan Last 24 Hours: My Active Orders 12/05/18 12:40 EKG Documentation Completion [RC] URGENT 12/05/18 13:06 CULTURE URINE [RM] Urgent 12/05/18 13:30 Heparin Sodium/0.45% NaCl [Heparin 25,000 Units in 1/2 NS 500 ML] 25,000 units in 500 ml IV ONETIME
--- NOTE | 2018-12-05 13:12 | CR ---
Clinical history: 83-year-old hypertensive male with irregular heart beats. Interpretation: (Upright AP portable chest) abnormal but unchanged except for technique when compared to 12 March 2017 exam. Sternotomy wires and external cardiac cath tech leads. No new cephalization of vascular flow, signs of alveolar edema or dependent pleural fluid accumulation. No new lung mass, hilar lymphadenopathy or focal lobar pneumonia. No atelectasis/collapse. No pneumothorax. CONCLUSION: No acute new cardiopulmonary abnormality since PA film 12 March 2017
[2018-12-05 13:15] VITALS: PULSE 69
[2018-12-05 13:16] LABS: ANION GAP 13.9
[2018-12-05] MEDS ORDERED: Heparin Sodium 5,000 Units/ML Vial IVPUSH ONE (13:28)
[2018-12-05] MEDS ORDERED: Aspirin 81 MG Tab.Chew PO ONE (13:28)
[2018-12-05] MEDS ORDERED: Heparin Sodium/0.45% NaCl 25,000 UNITS/500 ML BAG IV ONE (13:30)
[2018-12-05] MEDS ORDERED: Nitroglycerin 0.4 MG Tab.SL SL ONE (13:37)
[2018-12-05 13:41] VITALS: BP 203/76
== END 2018-12-05 14:16 ==
LOC: DL.ED 11:26
DX: I21.4 Non-ST elevation (NSTEMI) myocardial infarction (principal); I16.1 Hypertensive emergency; R79.89 Other specified abnormal findings of blood chemistry; I11.0 Hypertensive heart disease with heart failure; I50.9 Heart failure, unspecified; I25.10 Atherosclerotic heart disease of native coronary artery without angina pectoris; E11.9 Type 2 diabetes mellitus without complications; Z79.899 Other long term (current) drug therapy; Z79.84 Long term (current) use of oral hypoglycemic drugs
CPT/HCPCS: 36415; 71045; 80053; 81001; 84484; 85025; 87086; 93005; 96365; 96376; 99285; A9270; J1644; 99284

== ENCOUNTER 2019-05-20 01:01 | Inpatient (IN) | payer OTHER, MEDICARE ==
--- NOTE | 2019-05-20 00:33 | EDM.PDOC ---
ED HPI GENERAL MEDICAL PROBLEM - General Chief Complaint: Chest Pain Stated Complaint: AMBULANCE Time Seen by Provider: 05/20/19 00:15 Source of Information: Reports: Patient History Limitations: Reports: No Limitations - History of Present Illness INITIAL COMMENTS - FREE TEXT/NARRATIVE: This 83 yo male patient was brought to the ED by [facility] due to increased shortness of breath and chest pain. The patient reports his symptoms started just before he called the ambulance as he was getting up to go to bed. The patient also reports he has had some shortness of breath with any exertion. The patient reports he feels better at this time, but continues to have "a little" chest pain (mid chest described as "pressure"). Onset: Today Duration: Minutes:, Improving Location: Reports: Chest Quality: Reports: Other Severity: Moderate Improves with: Reports: None Worsens with: Reports: None Context: Reports: Other Associated Symptoms: Reports: Chest Pain, Cough, Shortness of Breath Treatments TEAM MANAGER: Reports: Breathing Treatments (By ambulance) Left Lower Anterior Chest Pain Score (Numeric/FACES): 5 - Related Data Allergies Allergy/AdvReac Type Severity Reaction Status Date / Time No Known Allergies Allergy Verified 05/20/19 00:12 Home Meds: Home Meds Furosemide [Lasix] 20 mg PO DAILY 07/06/16 [History] Isosorbide Mononitrate [Imdur] 30 mg PO BID 07/06/16 [History] Lisinopril 10 mg PO BEDTIME 07/06/16 [History] atorvaSTATin [Lipitor] 40 mg PO BEDTIME 07/06/16 [History] glipiZIDE [Glucotrol] 2.5 mg PO BIDMEALS 09/24/16 [History] Levothyroxine 88 mcg PO ACBREAKFAST 12/14/16 [History] Carvedilol 6.25 mg PO BID 01/07/17 [History] Cetirizine [ZyrTEC] 5 mg PO DAILY 05/20/19 [History] Clopidogrel [Plavix] 75 mg PO DAILY 05/20/19 [History] Finasteride 5 mg PO DAILY 05/20/19 [History] Past Medical History HEENT History: Reports: Cataract Other HEENT History: wears glasses, hx of tonsilitis Cardiovascular History: Reports: Bypass, CAD, Heart Failure, High Cholesterol, Hypertension, Stents Respiratory History: Reports: Bronchitis, Recurrent Other Respiratory History: hx of strep throat Gastrointestinal History: Reports: None Genitourinary History: Reports: None Musculoskeletal History: Reports: Arthritis, Fracture Neurological History: Reports: None Psychiatric History: Reports: None Endocrine/Metabolic History: Reports: Diabetes, Type II Hematologic History: Reports: None Immunologic History: Reports: None Oncologic (Cancer) History: Reports: None Dermatologic History: Reports: Other (See Below) Other Dermatologic History: heat rash - Infectious Disease History Infectious Disease History: Reports: Chicken Pox, Measles, Mumps - Past Surgical History Head Surgeries/Procedures: Reports: None HEENT Surgical History: Reports: Cataract Surgery Cardiovascular Surgical History: Reports: Coronary Artery Bypass Musculoskeletal Surgical History: Reports: None Social & Family History - Family History Family Medical History: Noncontributory - Caffeine Use Caffeine Use: Reports: None - Living Situation & Occupation Living situation: Reports: Single, Alone Occupation: Retired ED ROS GENERAL - Review of Systems Review Of Systems: ROS reveals no pertinent complaints other than HPI. ED EXAM, GENERAL - Physical Exam Exam: See Below Exam Limited By: No Limitations General Appearance: Alert, WD/WN, Mild Distress Eye Exam: Bilateral Eye: EOMI, Normal Inspection, PERRL Ears: Normal External Exam, Normal Canal, Hearing Grossly Normal, Normal TMs Nose: Normal Inspection, Normal Mucosa, No Blood Throat/Mouth: Normal Inspection, Normal Lips, Normal Teeth, Normal Gums, Normal Oropharynx, Normal Voice, No Airway Compromise Head: Atraumatic, Normocephalic Neck: Normal Inspection, Supple, Non-Tender, Full Range of Motion Respiratory/Chest: Normal Breath Sounds, No Accessory Muscle Use, Chest Non- Tender, Rhonchi (diffuse faint) Cardiovascular: Normal Peripheral Pulses, Regular Rate, Rhythm, No Edema, No Gallop, No JVD, No Murmur, No Rub GI/Abdominal: Normal Bowel Sounds, Soft, Non-Tender, No Organomegaly, No Distention, No Abnormal Bruit, No Mass (Male) Exam: Deferred Rectal (Males) Exam: Deferred Back Exam: Normal Inspection, Full Range of Motion, NT Extremities: Normal Inspection, Normal Range of Motion, Non-Tender, Normal Capillary Refill, No Pedal Edema Neurological: Alert, Oriented, CN II-XII Intact, Normal Cognition, Normal Gait, Normal Reflexes, No Motor/Sensory Deficits Psychiatric: Normal Affect, Normal Mood Skin Exam: Warm, Dry, Intact, Normal Color, No Rash Lymphatic: No Adenopathy Course - Vital Signs Last Recorded V/S: Last Vital Signs Temp 37.0 C 05/20/19 00:15 Pulse 84 05/20/19 00:15 Resp 24 H 05/20/19 00:15 BP 194/99 H 05/20/19 00:15 Pulse Ox 90 L 05/20/19 00:15 - Orders/Labs/Meds Orders: Active Orders 24 hr Category Date Time Status EKG Documentation Completion [RC] URGENT Care 05/20/19 00:02 Active Chest 1V Frontal [CR] Urgent Exams 05/20/19 00:03 Taken CULTURE BLOOD [BC] Stat Lab 05/20/19 00:15 Received Labs: Laboratory Tests 05/20/19 05/20/19 05/20/19 Range/Units 00:15 00:15 00:15 WBC 6.3 (5.0-10.0) 10^3/uL RBC 4.21 L (4.6-6.2) 10^6/uL Hgb 12.7 L (14.0-18.0) g/dL Hct 39.0 L (40.0-54.0) % MCV 92.6 (80-100) fL MCH 30.2 (27.0-34.0) pg MCHC 32.6 L (33.0-35.0) g/dL Plt Count 190 (150-450) 10^3/uL Neut % (Auto) 55.9 (42.2-75.2) % Lymph % (Auto) 26.6 (20.5-50.1) % [place] % (Auto) 13.7 H (2-8) % Eos % (Auto) 3.3 H (1.0-3.0) % Baso % (Auto) 0.5 (0.0-1.0) % Sodium (135-145) mmol/L Potassium (3.6-5.0) mmol/L Chloride (101-111) mmol/L Carbon Dioxide (21.0-31.0) mmol/L Anion Gap BUN (7-18) mg/dL Creatinine (0.6-1.3) mg/dL Est Cr Clr Drug Dosing mL/min Estimated GFR (MDRD) BUN/Creatinine Ratio Glucose (74-105) mg/dL Lactic Acid 1.5 (0.5-2.2) mmol/L Calcium (8.4-10.2) mg/dl Total Bilirubin (0.2-1.0) mg/dL AST (10-42) IU/L ALT (10-60) IU/L Alkaline Phosphatase (42-121) IU/L Troponin I (0.00-0.02) ng/ml B-Natriuretic Peptide 1750 H (0-100) pg/ml Total Protein (6.7-8.2) g/dl Albumin (3.2-5.5) g/dl Globulin Albumin/Globulin Ratio 05/20/19 Range/Units 00:15 WBC (5.0-10.0) 10^3/uL RBC (4.6-6.2) 10^6/uL Hgb (14.0-18.0) g/dL Hct (40.0-54.0) % MCV (80-100) fL MCH (27.0-34.0) pg MCHC (33.0-35.0) g/dL Plt Count (150-450) 10^3/uL Neut % (Auto) (42.2-75.2) % Lymph % (Auto) (20.5-50.1) % [place] % (Auto) (2-8) % Eos % (Auto) (1.0-3.0) % Baso % (Auto) (0.0-1.0) % Sodium 141 (135-145) mmol/L Potassium 4.3 (3.6-5.0) mmol/L Chloride 107 (101-111) mmol/L Carbon Dioxide 24.0 (21.0-31.0) mmol/L Anion Gap 14.3 BUN 42 H (7-18) mg/dL Creatinine 1.5 H (0.6-1.3) mg/dL Est Cr Clr Drug Dosing 36.10 mL/min Estimated GFR (MDRD) 45 BUN/Creatinine Ratio 28.00 Glucose 245 H (74-105) mg/dL Lactic Acid (0.5-2.2) mmol/L Calcium 8.6 (8.4-10.2) mg/dl Total Bilirubin 0.8 (0.2-1.0) mg/dL AST 26 (10-42) IU/L ALT 21 (10-60) IU/L Alkaline Phosphatase 77 (42-121) IU/L Troponin I 0.03 H* (0.00-0.02) ng/ml B-Natriuretic Peptide (0-100) pg/ml Total Protein 7.5 (6.7-8.2) g/dl Albumin 3.0 L (3.2-5.5) g/dl Globulin 4.5 Albumin/Globulin Ratio 0.67 Meds: Medications Discontinued Medications Generic Name Dose Route Start Last Admin Trade Name Freq PRN Reason Stop Dose Admin Aspirin 324 mg 05/20/19 00:12 05/20/19 00:33 Aspirin PO 05/20/19 00:13 324 mg ONETIME ONE Administration Furosemide 40 mg 05/20/19 00:56 Lasix IVPUSH 05/20/19 00:57 NOW ONE Departure - Departure Time of Disposition: 00:59 Disposition: Admitted As Inpatient 66 Condition: Fair Clinical Impression: Acute exacerbation of CHF (congestive heart failure) Qualifiers: Heart failure type: unspecified Qualified Code(s): I50.9 - Heart failure, unspecified Care Plan Goals: Discussed the patient's history, examination, lab and treatments with Dr. Man. Dr. Man accepted the patient for continued evaluation and management as an inpatient at [facility]. - My Orders Last 24 Hours: My Active Orders 05/20/19 00:02 EKG Documentation Completion [RC] URGENT 05/20/19 00:03 Chest 1V Frontal [CR] Urgent 05/20/19 00:15 CULTURE BLOOD [BC] Stat - Assessment/Plan Last 24 Hours: My Active Orders 05/20/19 00:02 EKG Documentation Completion [RC] URGENT 05/20/19 00:03 Chest 1V Frontal [CR] Urgent 05/20/19 00:15 CULTURE BLOOD [BC] Stat
[2019-05-20 00:41] LABS: ANION GAP 14.3
[~2019-05-20 01:01] MED LIST: Aspirin 81 MG Tab.Chew PO ONE; Furosemide 40 MG/4 ML VIAL IVPUSH ONE
--- NOTE | 2019-05-20 02:03 | PCM.HP ---
H&P History of Present Illness - General Date of Service: 05/20/19 Admit Problem/Dx: Admission Diagnosis/Problem Admission Diagnosis/Problem CHF, Congestive heart failure, Left sided pneumonia Source of Information: Patient, Family History Limitations: Reports: No Limitations - History of Present Illness Initial Comments - Free Text/Narative: This is a 83 y/o M with Past Medical history of Diabetes II X 20 years, CAD S/P CABD, Hypertension, Dyslipidemia, Chronic Kidney Disease [place] [facility] [place] [facility] came to ED due to increased shortness of breath started early in the morning of 05/19/19 and and later in the evening chest pain. The patient reports his symptoms got worse just before going to bed and he called the ambulance The patient also reports he has had some shortness of breath with any exertion. The patient reports he feels better at this time, but continues to have "a little" chest pain, he graded the pain at 5/10 and localized to the left side of the chest with no radiation. He had no nausea or Vomiting. In ED his BNP was elevated, it was >1700 and Troponin 0.03. He had CXR done and it showed left lower lobe Pneumonia. Onset of Symptoms: Reports: Today Symptom Onset Date: 05/19/19 Duration of Symptoms: Reports: Getting Worse Location: Reports: Chest Quality: Reports: Pressure Worsens with: Reports: Movement Associated Symptoms: Reports: Shortness of Breath Left Lower Anterior Chest Pain Score (Numeric/FACES): 5 - Related Data Allergies/Adverse Reactions: Allergies Allergy/AdvReac Type Severity Reaction Status Date / Time No Known Allergies Allergy Verified 05/20/19 02:00 Home Medications: Home Meds Furosemide [Lasix] 20 mg PO DAILY 07/06/16 [History] Isosorbide Mononitrate [Imdur] 30 mg PO DAILY 07/06/16 [History] Lisinopril 10 mg PO BEDTIME 07/06/16 [History] atorvaSTATin [Lipitor] 40 mg PO BEDTIME 07/06/16 [History] glipiZIDE [Glucotrol] 2.5 mg PO BIDMEALS 09/24/16 [History] Levothyroxine 88 mcg PO ACBREAKFAST 12/14/16 [History] Carvedilol 6.25 mg PO BID 01/07/17 [History] Cetirizine [ZyrTEC] 5 mg PO DAILY 05/20/19 [History] Clopidogrel [Plavix] 75 mg PO DAILY 05/20/19 [History] Finasteride 5 mg PO DAILY 05/20/19 [History] Past Medical History HEENT History: Reports: Cataract Other HEENT History: wears glasses, hx of tonsilitis Cardiovascular History: Reports: Bypass, CAD, Heart Failure, High Cholesterol, Hypertension, Stents Respiratory History: Reports: Bronchitis, Recurrent Other Respiratory History: hx of strep throat Gastrointestinal History: Reports: None Genitourinary History: Reports: None Musculoskeletal History: Reports: Arthritis, Fracture Neurological History: Reports: None Psychiatric History: Reports: None Endocrine/Metabolic History: Reports: Diabetes, Type II Hematologic History: Reports: None Immunologic History: Reports: None Oncologic (Cancer) History: Reports: None Dermatologic History: Reports: Other (See Below) Other Dermatologic History: heat rash - Infectious Disease History Infectious Disease History: Reports: Chicken Pox, Measles, Mumps, Shingles - Past Surgical History Head Surgeries/Procedures: Reports: None HEENT Surgical History: Reports: Cataract Surgery Cardiovascular Surgical History: Reports: Coronary Artery Bypass Musculoskeletal Surgical History: Reports: None Social & Family History - Family History Family Medical History: Noncontributory - Tobacco Use Smoking Status *Q: Never Smoker Second Hand Smoke Exposure: No - Caffeine Use Caffeine Use: Reports: None - Recreational Drug Use Recreational Drug Use: No - Living Situation & Occupation Living situation: Reports: Single, Alone Occupation: Retired H&P Review of Systems - Review of Systems: Review Of Systems: See Below General: Reports: Weakness. Denies: Fever, Chills, Weight Loss HEENT: Denies: Ear Pain, Eye Pain, Hearing Changes, Sinus Congestion, Visual Changes Pulmonary: Reports: Shortness of Breath Cardiovascular: Reports: Chest Pain, Dyspnea on Exertion, Edema Gastrointestinal: Denies: Abdominal Pain, Difficulty Swallowing, Distension, Nausea, Vomiting Genitourinary: Denies: Dysuria, Frequency, Burning, Urgency Musculoskeletal: Denies: Neck Pain, Shoulder Pain, Joint Swelling, Muscle Stiffness Skin: Denies: Cyanosis, Jaundice Psychiatric: Denies: Confusion, Anxiety, Agitation Neurological: Denies: Confusion, Dizziness, Seizure Hematologic/Lymphatic: Reports: No Symptoms Immunologic: Reports: No Symptoms Exam - Exam Exam: See Below - Vital Signs Vital Signs: Last Vital Signs Temp 36.9 C 05/20/19 01:47 Pulse 80 05/20/19 01:47 Resp 20 05/20/19 01:47 BP 199/75 H 05/20/19 01:47 Pulse Ox 94 L 05/20/19 01:47 Weight: 77.292 kg - Exam Quality Assessment: Supplemental Oxygen, DVT Prophylaxis. No: Urinary Catheter General: Alert, Oriented, Cooperative HEENT: Conjunctiva Clear, Mucosa Moist & [place], Normal Nasal Septum Neck: Supple, Full Range of Motion. No: Lymphadenopathy, JVD, Thyromegaly Lungs: Clear to Auscultation, Normal Respiratory Effort. No: Crackles Cardiovascular: Regular Rate, Regular Rhythm, Normal S1, Normal S2, Systolic Murmur GI/Abdominal Exam: Normal Bowel Sounds, Non-Tender, No Organomegaly, No Distention, No Mass. No: Distended, Guarding (Male) Exam: Deferred Rectal (Males) Exam: Deferred Back Exam: Normal Inspection Extremities: Normal Inspection, Normal Range of Motion, No Pedal Edema Skin: Warm, Dry, Intact Neurological: Cranial Nerves Intact, Reflexes Equal Bilateral Neuro Extensive - Mental Status: Alert, Oriented x3, Normal Mood/Affect, Normal Cognition, Memory Intact Neuro Extensive - Motor, Sensory, Reflexes: CN II-XII Intact, Normal Gait, Normal Reflexes Psychiatric: Alert, Normal Affect, Normal Mood - Patient Data Lab Results Last 24 hrs: Laboratory Results - last 24 hr 05/20/19 05/20/19 05/20/19 Range/Units 00:15 00:15 00:15 WBC 6.3 (5.0-10.0) 10^3/uL RBC 4.21 L (4.6-6.2) 10^6/uL Hgb 12.7 L (14.0-18.0) g/dL Hct 39.0 L (40.0-54.0) % MCV 92.6 (80-100) fL MCH 30.2 (27.0-34.0) pg MCHC 32.6 L (33.0-35.0) g/dL Plt Count 190 (150-450) 10^3/uL Neut % (Auto) 55.9 (42.2-75.2) % Lymph % (Auto) 26.6 (20.5-50.1) % [place] % (Auto) 13.7 H (2-8) % Eos % (Auto) 3.3 H (1.0-3.0) % Baso % (Auto) 0.5 (0.0-1.0) % Sodium (135-145) mmol/L Potassium (3.6-5.0) mmol/L Chloride (101-111) mmol/L Carbon Dioxide (21.0-31.0) mmol/L Anion Gap BUN (7-18) mg/dL Creatinine (0.6-1.3) mg/dL Est Cr Clr Drug Dosing mL/min Estimated GFR (MDRD) BUN/Creatinine Ratio Glucose (74-105) mg/dL Lactic Acid 1.5 (0.5-2.2) mmol/L Calcium (8.4-10.2) mg/dl Total Bilirubin (0.2-1.0) mg/dL AST (10-42) IU/L ALT (10-60) IU/L Alkaline Phosphatase (42-121) IU/L Troponin I (0.00-0.02) ng/ml B-Natriuretic Peptide 1750 H (0-100) pg/ml Total Protein (6.7-8.2) g/dl Albumin (3.2-5.5) g/dl Globulin Albumin/Globulin Ratio 05/20/19 Range/Units 00:15 WBC (5.0-10.0) 10^3/uL RBC (4.6-6.2) 10^6/uL Hgb (14.0-18.0) g/dL Hct (40.0-54.0) % MCV (80-100) fL MCH (27.0-34.0) pg MCHC (33.0-35.0) g/dL Plt Count (150-450) 10^3/uL Neut % (Auto) (42.2-75.2) % Lymph % (Auto) (20.5-50.1) % [place] % (Auto) (2-8) % Eos % (Auto) (1.0-3.0) % Baso % (Auto) (0.0-1.0) % Sodium 141 (135-145) mmol/L Potassium 4.3 (3.6-5.0) mmol/L Chloride 107 (101-111) mmol/L Carbon Dioxide 24.0 (21.0-31.0) mmol/L Anion Gap 14.3 BUN 42 H (7-18) mg/dL Creatinine 1.5 H (0.6-1.3) mg/dL Est Cr Clr Drug Dosing 36.10 mL/min Estimated GFR (MDRD) 45 BUN/Creatinine Ratio 28.00 Glucose 245 H (74-105) mg/dL Lactic Acid (0.5-2.2) mmol/L Calcium 8.6 (8.4-10.2) mg/dl Total Bilirubin 0.8 (0.2-1.0) mg/dL AST 26 (10-42) IU/L ALT 21 (10-60) IU/L Alkaline Phosphatase 77 (42-121) IU/L Troponin I 0.03 H* (0.00-0.02) ng/ml B-Natriuretic Peptide (0-100) pg/ml Total Protein 7.5 (6.7-8.2) g/dl Albumin 3.0 L (3.2-5.5) g/dl Globulin 4.5 Albumin/Globulin Ratio 0.67 Result Diagrams: 05/20/19 00:15 05/20/19 07:10 - Problem List (1) Pneumonia SNOMED Code(s): 970978652 ICD Code: J18.9 - PNEUMONIA, UNSPECIFIED ORGANISM Status: Acute Current Visit: Yes (2) Acute exacerbation of CHF (congestive heart failure) SNOMED Code(s): 305407902, 64985866704244 ICD Code: I50.9 - HEART FAILURE, UNSPECIFIED Status: Acute Current Visit : No Qualifiers: Heart failure type: unspecified Qualified Code(s): I50.9 - Heart failure, unspecified (3) CKD (chronic kidney disease) stage 3, GFR 30-59 ml/min SNOMED Code(s): 353744949 ICD Code: N18.3 - CHRONIC KIDNEY DISEASE, STAGE 3 (MODERATE) Status: Acute Current Visit: No (4) Diabetes SNOMED Code(s): 13021155 ICD Code: E11.9 - TYPE 2 DIABETES MELLITUS WITHOUT COMPLICATIONS Status: Acute Current Visit: No (5) Elevated troponin SNOMED Code(s): 641454170, 182298001, 575033420 ICD Code: R74.8 - ABNORMAL LEVELS OF OTHER SERUM ENZYMES Status: Acute Current Visit: No Problem List Initiated/Reviewed/Updated: Yes Orders Last 24hrs: Active Orders 24 hr Category Date Time Status Admission Diagnosis [ADT] Routine ADT 05/20/19 01:00 Ordered Admission Status [Patient Status] [ADT] Routine ADT 05/20/19 01:00 Active Chest 1V Frontal [CR] Urgent Exams 05/20/19 00:03 Taken CULTURE BLOOD [BC] Stat Lab 05/20/19 00:15 Received Assessment/Plan Comment:: This is a 83 y/o male admitted with increased shortness of breath and chest pain. CXR showed left sided pneumonia Impression and Plan: 1. Increased shortness of breath: This is likely from CHF exacerbation with CXR showing congestion and elevated BNP also has contribution from left sided pneumonia -Will start Furosemide 40 mg IV 2 times a day -Continue NC oxygen to keep o2 sat at >90 -Continue I/O recording -Continue Duoned PRN 2. Chest Pain: The pt has CAD with CABG and came with chestpian and slight elevation of Troponin -Will check Serial Troponin Q6 hrs X3 3. Left Sided Pneumonia: He has no elevation of white count -Will start him on IV Zosyn 4. Hypertension: Continue Imdur and Corg, will hold Lisinopril as will need extensive diuresis 5. Diabetes II: Will continue Glipizide 6. GI prophylexis: continue PPI 7. DVT prophylaxis: Continue Heparin Code Status: Discussed code status with Pt and he is Full Code Addendum: ( 05/20/19 at 7:48 AM) In EKG he had LBBB and his Troponin has gone up from 0.03 to 0.72. He will be transferred to a center for Higher Level of care. He is started on Heparin drip and will call accepting center for transfer [facility].
[2019-05-20] MEDS ORDERED: Acetaminophen 325 MG Tab PO PRN (02:26)
[2019-05-20] MEDS ORDERED: Docusate Sodium 100 MG Cap PO PRN (02:26)
[2019-05-20] MEDS ORDERED: Heparin Sodium 5,000 Units/ML Vial SUBCUT SCH (02:30)
[2019-05-20] MEDS ORDERED: Albuterol/Ipratropium 3.0-0.5 MG/3 ML Neb Soln NEB PRN (02:34)
[2019-05-20] MEDS: Piperacillin/Tazobactam 3.375 GM in Sodium Chloride 0.9% 100 ML IV SCH ×2 (03:05→09:34)
[2019-05-20] MEDS ORDERED: Pantoprazole 40 MG Tab.CR PO SCH (06:00)
[2019-05-20] MEDS ORDERED: Levothyroxine 88 MCG Tab PO SCH (06:00)
[2019-05-20] MEDS ORDERED: Heparin Sodium/0.45% NaCl 25,000 UNITS/500 ML BAG IV SCH (06:45)
[2019-05-20] MEDS ORDERED: Heparin Sodium 5,000 Units/ML Vial IVPUSH ONE (06:49)
[2019-05-20] MEDS ORDERED: Insulin Regular, Human 100 Units/ML 10 ML Vial SUBCUT SCH (07:00)
[2019-05-20 07:47] LABS: ANION GAP 13.5
[2019-05-20 07:50] VITALS: BP 194/83; PULSE 70
--- NOTE | 2019-05-20 07:57 | PCM.DCSUM1 ---
Discharge Summary - Hospital Course Free Text/Narrative:: This is a 83 y/o M with Past Medical history of Diabetes II X 20 years, CAD S/P CABD, Hypertension, Dyslipidemia, Chronic Kidney Disease [facility] came to ED due to increased shortness of breath started early in the morning of 05/19/19 and and later in the evening chest pain. The patient reports his symptoms got worse just before going to bed and he called the ambulance The patient also reports he has had some shortness of breath with any exertion. The patient reports he feels better at this time, but continues to have "a little" chest pain, he graded the pain at 5/10 and localized to the left side of the chest with no radiation. He had no nausea or Vomiting. In ED his BNP was elevated, it was >1700 and Troponin 0.03. He had CXR done and it showed left lower lobe Pneumonia. after admission he was started on Zosyn and lasix 60 mg IV 2 times a day. He responded well to Diuretics but his second set of Troponin was up and it was 0.72 increased from 0.03, He has LBBB on EKG , started on Heparin drip and he will be transferred to a center for higher Level of care. Diagnosis: Stroke: No - Discharge Data Discharge Date: 05/20/19 Discharge Disposition: DC/Tfer to [facility] Condition: Good - Referral to Home Health Primary Care Physician: Ashley Payton, POLITICAL SCIENCE RESEARCH ASSISTANT - Discharge Diagnosis/Problem(s) (1) Pneumonia SNOMED Code(s): 435023549 ICD Code: J18.9 - PNEUMONIA, UNSPECIFIED ORGANISM Status: Acute Current Visit: Yes Qualifiers: Pneumonia type: due to unspecified organism Laterality: left (2) Acute exacerbation of CHF (congestive heart failure) SNOMED Code(s): 548381110, 36831233630339 ICD Code: I50.9 - HEART FAILURE, UNSPECIFIED Status: Acute Current Visit : No Qualifiers: Heart failure type: unspecified Qualified Code(s): I50.9 - Heart failure, unspecified (3) CKD (chronic kidney disease) stage 3, GFR 30-59 ml/min SNOMED Code(s): 587787341 ICD Code: N18.3 - CHRONIC KIDNEY DISEASE, STAGE 3 (MODERATE) Status: Acute Current Visit: No (4) Diabetes SNOMED Code(s): 21804665 ICD Code: E11.9 - TYPE 2 DIABETES MELLITUS WITHOUT COMPLICATIONS Status: Acute Current Visit: No Qualifiers: Diabetes mellitus type: type 2 Diabetes mellitus fpc insulin use: without fpc use (5) Elevated troponin SNOMED Code(s): 689181546, 653025934, 014073686 ICD Code: R74.8 - ABNORMAL LEVELS OF OTHER SERUM ENZYMES Status: Acute Current Visit: No - Patient Instructions Diet: Diabetic Diet Activity: Bedrest, May Use Bathroom Driving: Do Not Drive Notify Provider of: Fever - Discharge Plan Home Medications: Home Meds Furosemide [Lasix] 20 mg PO DAILY 07/06/16 [History] Isosorbide Mononitrate [Imdur] 30 mg PO DAILY 07/06/16 [History] Lisinopril 10 mg PO BEDTIME 07/06/16 [History] atorvaSTATin [Lipitor] 40 mg PO BEDTIME 07/06/16 [History] glipiZIDE [Glucotrol] 2.5 mg PO BIDMEALS 09/24/16 [History] Levothyroxine 88 mcg PO ACBREAKFAST 12/14/16 [History] Carvedilol 6.25 mg PO BID 01/07/17 [History] Cetirizine [ZyrTEC] 5 mg PO DAILY 05/20/19 [History] Clopidogrel [Plavix] 75 mg PO DAILY 05/20/19 [History] Finasteride 5 mg PO DAILY 05/20/19 [History] Oxygen Therapy Mode: Nasal Cannula Referrals: PCP,Unknown [Ordering Only Provider] - - Discharge Summary/Plan Comment DC Time >30 min.: Yes Discharge Summary/Plan Comment: Assessment/Plan Comment:: This is a 83 y/o male admitted with increased shortness of breath and chest pain. CXR showed left sided pneumonia 1. Increased shortness of breath: This is likely from CHF exacerbation with CXR showing congestion and elevated BNP also has contribution from left sided pneumonia -Will continue Furosemide at 60 mg IV 2 times a day -Continue NC oxygen to keep 02 sat at >90 -Continue I/O recording -Continue Duoned PRN 2. Chest Pain: The pt has CAD with CABG and came with chest pian and slight elevation of Troponin, EKG LBBB -Will check Serial Troponin Q6 hrs X3 -His Troponin has increased from 0.03 to 0.72 , will start him on heparin drip and Transfer him to Critical care Center with higher level of care -He has his Administration Manager at [facility] and also had all his care at [facility]. He also had CABG done at [facility] and the pt is requesting to go to [facility] and will make arrangement for his Transfer to [facility] for further care -He will be NPO in care he had to have cardiac Procedure 3. Left Sided Pneumonia: He has no elevation of white count -Will continue him on IV Zosyn 4. Hypertension: Continue Imdur and Corg, will hold Lisinopril as will need extensive diuresis 5. Diabetes II: Will continue Glipizide 6. GI prophylexis: continue PPI 7. DVT prophylaxis: Continue Heparin Code Status: Discussed code status with Pt and he is Full Code Addendum: ( 05/20/19 at 7:48 AM) In EKG he had LBBB and his Troponin has gone up from 0.03 to 0.72. He will be transferred to a center for Higher Level of care. He is started on Heparin drip and will call accepting center for transfer [facility]. He will be going to [facility] - General Info Date of Service: 05/20/19 Admission Dx/Problem (Free Text: Admission Diagnosis/Problem Admission Diagnosis/Problem CHF, Congestive heart failure, Left sided pneumonia Subjective Update: He feels better today and still on oxygen but titrated down from 4L to 2L and has no nausea, Vomiting, Fever or chill Functional Status: Reports: Pain Controlled, Ambulating, Urinating - Review of Systems General: Reports: Appetite (acceptable). Denies: Fever, Malaise, Chills HEENT: Denies: Headaches, Sinus Congestion, Sore Throat, Visual Changes Pulmonary: Reports: Shortness of Breath. Denies: Cough, Sputum, Wheezing Cardiovascular: Reports: Chest Pain, Dyspnea on Exertion Gastrointestinal: Denies: Abdominal Pain, Difficulty Swallowing, Nausea, Vomiting Genitourinary: Denies: Dysuria, Frequency, Burning, Flank Pain Musculoskeletal: Denies: Neck Pain, Shoulder Pain, Back Pain, Foot Pain Skin: Denies: Cyanosis, Jaundice, Bruising, Pruritis, Rash Neurological: Denies: Confusion, Numbness, Paresthesia, Tremors Psychiatric: Denies: Confusion, Anxiety - Patient Data Vitals - Most Recent: Last Vital Signs Temp 36.4 C 05/20/19 07:49 Pulse 70 05/20/19 07:49 Resp 22 H 05/20/19 07:49 BP 194/83 H 05/20/19 07:49 Pulse Ox 99 05/20/19 07:49 Weight - Most Recent: 77.292 kg I&O - Last 24 hours: Intake & Output 05/19/19 05/20/19 05/20/19 22:59 06:59 14:59 Intake Total 150 Output Total 850 Balance -700 Lab Results - Last 24 hrs: Laboratory Results - last 24 hr 05/20/19 05/20/19 05/20/19 Range/Units 00:15 00:15 00:15 WBC 6.3 (5.0-10.0) 10^3/uL RBC 4.21 L (4.6-6.2) 10^6/uL Hgb 12.7 L (14.0-18.0) g/dL Hct 39.0 L (40.0-54.0) % MCV 92.6 (80-100) fL MCH 30.2 (27.0-34.0) pg MCHC 32.6 L (33.0-35.0) g/dL Plt Count 190 (150-450) 10^3/uL Neut % (Auto) 55.9 (42.2-75.2) % Lymph % (Auto) 26.6 (20.5-50.1) % Murray % (Auto) 13.7 H (2-8) % Eos % (Auto) 3.3 H (1.0-3.0) % Baso % (Auto) 0.5 (0.0-1.0) % PT (9.0-12.0) SEC INR (0.9-1.2) Sodium (135-145) mmol/L Potassium (3.6-5.0) mmol/L Chloride (101-111) mmol/L Carbon Dioxide (21.0-31.0) mmol/L Anion Gap BUN (7-18) mg/dL Creatinine (0.6-1.3) mg/dL Est Cr Clr Drug Dosing mL/min Estimated GFR (MDRD) BUN/Creatinine Ratio Glucose (74-105) mg/dL Lactic Acid 1.5 (0.5-2.2) mmol/L Calcium (8.4-10.2) mg/dl Total Bilirubin (0.2-1.0) mg/dL AST (10-42) IU/L ALT (10-60) IU/L Alkaline Phosphatase (42-121) IU/L Troponin I (0.00-0.02) ng/ml B-Natriuretic Peptide 1750 H (0-100) pg/ml Total Protein (6.7-8.2) g/dl Albumin (3.2-5.5) g/dl Globulin Albumin/Globulin Ratio 05/20/19 05/20/19 05/20/19 Range/Units 00:15 06:10 07:10 WBC (5.0-10.0) 10^3/uL RBC (4.6-6.2) 10^6/uL Hgb (14.0-18.0) g/dL Hct (40.0-54.0) % MCV (80-100) fL MCH (27.0-34.0) pg MCHC (33.0-35.0) g/dL Plt Count (150-450) 10^3/uL Neut % (Auto) (42.2-75.2) % Lymph % (Auto) (20.5-50.1) % Murray % (Auto) (2-8) % Eos % (Auto) (1.0-3.0) % Baso % (Auto) (0.0-1.0) % PT 10.2 (9.0-12.0) SEC INR 1.0 (0.9-1.2) Sodium 141 (135-145) mmol/L Potassium 4.3 (3.6-5.0) mmol/L Chloride 107 (101-111) mmol/L Carbon Dioxide 24.0 (21.0-31.0) mmol/L Anion Gap 14.3 BUN 42 H (7-18) mg/dL Creatinine 1.5 H (0.6-1.3) mg/dL Est Cr Clr Drug Dosing 36.10 mL/min Estimated GFR (MDRD) 45 BUN/Creatinine Ratio 28.00 Glucose 245 H (74-105) mg/dL Lactic Acid (0.5-2.2) mmol/L Calcium 8.6 (8.4-10.2) mg/dl Total Bilirubin 0.8 (0.2-1.0) mg/dL AST 26 (10-42) IU/L ALT 21 (10-60) IU/L Alkaline Phosphatase 77 (42-121) IU/L Troponin I 0.03 H* 0.72 H* (0.00-0.02) ng/ml B-Natriuretic Peptide (0-100) pg/ml Total Protein 7.5 (6.7-8.2) g/dl Albumin 3.0 L (3.2-5.5) g/dl Globulin 4.5 Albumin/Globulin Ratio 0.67 05/20/19 Range/Units 07:10 WBC (5.0-10.0) 10^3/uL RBC (4.6-6.2) 10^6/uL Hgb (14.0-18.0) g/dL Hct (40.0-54.0) % MCV (80-100) fL MCH (27.0-34.0) pg MCHC (33.0-35.0) g/dL Plt Count (150-450) 10^3/uL Neut % (Auto) (42.2-75.2) % Lymph % (Auto) (20.5-50.1) % Murray % (Auto) (2-8) % Eos % (Auto) (1.0-3.0) % Baso % (Auto) (0.0-1.0) % PT (9.0-12.0) SEC INR (0.9-1.2) Sodium 143 (135-145) mmol/L Potassium 4.5 (3.6-5.0) mmol/L Chloride 108 (101-111) mmol/L Carbon Dioxide 26.0 (21.0-31.0) mmol/L Anion Gap 13.5 BUN 42 H (7-18) mg/dL Creatinine 1.5 H (0.6-1.3) mg/dL Est Cr Clr Drug Dosing 36.10 mL/min Estimated GFR (MDRD) 45 BUN/Creatinine Ratio Glucose 137 H (74-105) mg/dL Lactic Acid (0.5-2.2) mmol/L Calcium 8.4 (8.4-10.2) mg/dl Total Bilirubin (0.2-1.0) mg/dL AST (10-42) IU/L ALT (10-60) IU/L Alkaline Phosphatase (42-121) IU/L Troponin I (0.00-0.02) ng/ml B-Natriuretic Peptide (0-100) pg/ml Total Protein (6.7-8.2) g/dl Albumin (3.2-5.5) g/dl Globulin Albumin/Globulin Ratio Med Orders - Current: Current Medications Acetaminophen (Tylenol) 650 mg PO Q4H PRN PRN Reason: Pain (mild 1-3 )/fever Albuterol/Ipratropium (Duoneb 3.0-0.5 Mg/3 Ml) 3 ml NEB Q4HRRT PRN PRN Reason: Shortness of Breath Atorvastatin Calcium (Lipitor) 40 mg PO BEDTIME [facility] Carvedilol (Coreg) 6.25 mg PO BID [facility] Clopidogrel Bisulfate (Plavix) 75 mg PO DAILY [facility] Docusate Sodium (Colace) 100 mg PO DAILY PRN PRN Reason: Constipation Finasteride (Proscar) 5 mg PO DAILY [facility] Furosemide (Lasix) 60 mg IVPUSH BIDDIURETIC [facility] Glipizide (Glucotrol) 2.5 mg PO BIDMEALS [facility] Heparin Sodium (Porcine) (Heparin Sodium) 5,000 units SUBCUT Q8H [facility] Last Admin: 05/20/19 03:06 Dose: 5,000 units Piperacillin Sod/Tazobactam (Sod 3.375 gm/ Sodium Chloride) 100 mls @ 200 mls/ hr IV Q6H [facility] Last Admin: 05/20/19 03:05 Dose: 200 mls/hr Heparin Sodium/Sodium Chloride (Heparin 25,000 Units In 1/2 Ns 500 Ml) 25,000 units in 500 mls @ 18.55 mls/hr IV TITRATE [facility]; Protocol Insulin Human Regular (Novolin R) 0 unit SUBCUT QIDACANDBED [facility]; Protocol Isosorbide Mononitrate (Imdur) 30 mg PO DAILY [facility] Levothyroxine Sodium (Synthroid) 88 mcg PO ACBREAKFAST [facility] Last Admin: 05/20/19 05:55 Dose: 88 mcg Non-Formulary Medication (Cetirizine [Zyrtec]) 5 mg PO DAILY [facility] Pantoprazole Sodium (Protonix) 40 mg PO ACBREAKFAST [facility] Last Admin: 05/20/19 05:55 Dose: 40 mg Discontinued Medications Aspirin (Aspirin) 324 mg PO ONETIME ONE Stop: 05/20/19 00:13 Last Admin: 05/20/19 00:33 Dose: 324 mg Furosemide (Lasix) 40 mg IVPUSH NOW ONE Stop: 05/20/19 00:57 Last Admin: 05/20/19 01:07 Dose: 40 mg Heparin Sodium (Porcine) (Heparin Sodium) 4,000 units IVPUSH .BOLUS ONE Stop: 05/20/19 06:50 - Exam Quality Assessment: Reports: Supplemental Oxygen, DVT Prophylaxis. Denies: Urine Catheter General: Reports: Alert, Oriented, Cooperative, No Acute Distress HEENT: Reports: Pupils Equal, Pupils Reactive, Mucous Membr. Moist/[place] Neck: Reports: Supple, No JVD, No Thyromegaly Lungs: Reports: Clear to Auscultation, Normal Respiratory Effort Cardiovascular: Reports: Regular Rate, Regular Rhythm, Murmurs GI/Abdominal Exam: Normal Bowel Sounds, Soft, Non-Tender, No Organomegaly. No: Rebound (Male) Exam: Deferred Rectal (Males) Exam: Deferred Back Exam: Reports: Normal Inspection Extremities: Normal Inspection, No Pedal Edema Skin: Reports: Warm, Dry, Intact Psy/Mental Status: Reports: Alert, Normal Affect, Normal Mood
[2019-05-20] MEDS ORDERED: Furosemide 40 MG/4 ML VIAL IVPUSH SCH (08:00)
[2019-05-20] MEDS ORDERED: glipiZIDE 5 MG Tab PO SCH (08:00)
[2019-05-20] MEDS ORDERED: Aspirin 325 MG Tab ONE (08:26)
[2019-05-20] MEDS ORDERED: Aspirin 325 MG Tab PO ONE (08:28)
[2019-05-20] MEDS ORDERED: Finasteride 5 MG Tab PO SCH (09:00)
[2019-05-20] MEDS ORDERED: CETIRIZINE 5 MG PO SCH (09:00)
[2019-05-20] MEDS ORDERED: Clopidogrel 75 MG Tab PO SCH (09:00)
[2019-05-20] MEDS ORDERED: Isosorbide Mononitrate 30 MG Tab.ER PO SCH (09:00)
[2019-05-20] MEDS ORDERED: Carvedilol 6.25 MG Tab PO SCH (09:00)
[2019-05-20] MEDS ORDERED: atorvaSTATin 20 MG Tab PO SCH (21:00)
== END 2019-05-20 09:15 | disposition critical access hospital (66) | DRG 291 ==
LOC: DL.ED 01:01 → DL.MS 01:02
PROVIDERS: ADMIT Internal Medicine Nephrology; ATTEND Internal Medicine Nephrology
DX: I13.0 Hypertensive heart and chronic kidney disease with heart failure and stage 1 through stage 4 chronic kidney disease, or unspecified chronic kidney disease (principal); J18.1 Lobar pneumonia, unspecified organism; I11.0 Hypertensive heart disease with heart failure; R06.02 Shortness of breath; R07.9 Chest pain, unspecified; E11.9 Type 2 diabetes mellitus without complications; I25.10 Atherosclerotic heart disease of native coronary artery without angina pectoris; E78.5 Hyperlipidemia, unspecified; E11.22 Type 2 diabetes mellitus with diabetic chronic kidney disease; I50.9 Heart failure, unspecified; N18.3 Chronic kidney disease, stage 3 (moderate); R74.8 Abnormal levels of other serum enzymes; E78.00 Pure hypercholesterolemia, unspecified; M19.90 Unspecified osteoarthritis, unspecified site; I44.7 Left bundle-branch block, unspecified; Z95.1 Presence of aortocoronary bypass graft; Z79.899 Other long term (current) drug therapy; Z79.84 Long term (current) use of oral hypoglycemic drugs; Z98.49 Cataract extraction status, unspecified eye
CPT/HCPCS: 36415; 71045; 80053; 83605; 83880; 84484; 85025; 87040; 93005; 99285; A9270; 80048; 85610; 96374; J1644; J1940; J2543; J7050

== ENCOUNTER 2019-11-22 06:13 | Emergency (ER) | payer MEDICARE, OTHER ==
[2019-11-22] MEDS ORDERED: Furosemide 40 MG/4 ML VIAL IVPUSH ONE (06:20)
[2019-11-22] MEDS ORDERED: Nitroglycerin/D5W 25 MG/250 ML BOTTLE IV SCH (06:20)
[2019-11-22] MEDS ORDERED: Furosemide 40 MG/4 ML VIAL ONE (06:23)
[2019-11-22] MEDS ORDERED: Nitroglycerin/D5W 25 MG/250 ML BOTTLE ONE (06:24)
[2019-11-22] MEDS ORDERED: Metoprolol Tartrate 5 MG/5 ML SDV IVPUSH ONE (06:49)
[2019-11-22 06:56] VITALS: BP 210/104; PULSE 115
[2019-11-22 07:06] LABS: ANION GAP 17.9 mEq/L (7-13); CHLORIDE,CL 104 mmol/L (98-107); SODIUM,NA 140 mmol/L (136-145)
--- NOTE | 2019-11-22 07:10 | EDM.PDOC ---
<AllisonJackson G - Last Filed: 11/22/19 08:07> ED HPI GENERAL MEDICAL PROBLEM - General Chief Complaint: Chest Pain Stated Complaint: AMBULANCE Time Seen by Provider: 11/22/19 06:13 - Related Data Allergies Allergy/AdvReac Type Severity Reaction Status Date / Time No Known Allergies Allergy Verified 11/22/19 06:38 Home Meds: Home Meds Isosorbide Mononitrate [Imdur] 30 mg PO DAILY 07/06/16 [History] atorvaSTATin [Lipitor] 40 mg PO BEDTIME 07/06/16 [History] glipiZIDE [Glucotrol] 2.5 mg PO BIDMEALS 09/24/16 [History] Levothyroxine 75 mcg PO ACBREAKFAST 12/14/16 [History] carvediloL [Carvedilol] 6.25 mg PO BID 01/07/17 [History] Cetirizine [ZyrTEC] 5 mg PO DAILY 05/20/19 [History] Clopidogrel [Plavix] 75 mg PO DAILY 05/20/19 [History] Finasteride 5 mg PO DAILY 05/20/19 [History] Ascorbic Acid [Vitamin C] 500 mg PO DAILY 06/19/19 [History] Aspirin [Lo-Dose Aspirin EC] 81 mg PO DAILY 06/19/19 [History] Cyanocobalamin (Vitamin B-12) [B-12] 500 mcg PO DAILY 06/19/19 [History] Diclofenac Sodium 4 gm TP QID 06/19/19 [History] Fish Oil/[place]-3 Fatty Acids [Fish Oil 1,000 MG] 1 gm PO DAILY 06/19/19 [History ] Fluticasone Propionate 1 spray NASBOTH DAILY 06/19/19 [History] Magnesium 250 mg PO DAILY PRN 06/19/19 [History] Melatonin 5 mg PO BEDTIME PRN 06/19/19 [History] Multivitamin [Multi-Vitamin Daily] 1 each PO DAILY 06/19/19 [History] lisinopriL [Lisinopril] 10 mg PO DAILY 06/19/19 [History] Furosemide [Lasix] 20 mg PO BIDDIURETIC #60 tablet 06/21/19 [Rx] ED CARDIOLOGY PROCEDURES - Endotracheal Intubation Time of Intubation: 07:31 ET Intubation Indication: Respiratory Failure, Airway Protection Preparation: Suction, Balloon Tested, BVM Set Up, Difficult Airway Equip Pre-Oxygenation: Assisted with BVM, 100% FiO2 Anesthesia Meds: Etomidate, Fentanyl, Succinylcholine Placement: Orotracheal, Cuffed, Uncomplicated Placement Cords Visualized: Yes ETT Size In mm: 7.5 Number of Attempts: 1 Confirmed By: CO2 Indicator, Bilateral Breath Sounds Tube Secured By: By Provider Endotracheal Intubation Comment: Intubation by Anesthesia Bill without difficulty. EKG INTERPRETATION EKG Date: 11/22/19 Time: 06:48 Rhythm: Other [place]: Normal QRS: LBBB Comparison: No Change Course - Vital Signs Last Recorded V/S: Last Vital Signs Temp 100.2 F 11/22/19 06:57 Pulse 115 H 11/22/19 06:54 Resp 36 H 11/22/19 06:39 BP 210/104 H 11/22/19 06:54 Pulse Ox 81 L 11/22/19 06:39 - Orders/Labs/Meds Orders: Active Orders 24 hr Category Date Time Status EKG Documentation Completion [RC] URGENT Care 11/22/19 06:45 Active Gastrointestinal Tube Mgmt [RC] ASDIRECTED Care 11/22/19 07:50 Active Insert Maxr Catheter [Insert Urinary Catheter] [OM.PC] Care 11/22/19 08:00 Ordered Q24H Urinary Catheter Assessment [RC] ASDIRECTED Care 11/22/19 07:52 Active CORONAVIRUS COVID-19 PCR PHL [MREF] Urgent Lab 11/22/19 06:40 Received CULTURE BLOOD [BC] Stat Lab 11/22/19 06:23 Received CULTURE BLOOD [BC] Stat Lab 11/22/19 06:35 Received CULTURE URINE [RM] Urgent Lab 11/22/19 06:31 Received Labs: Laboratory Tests 11/22/19 11/22/19 11/22/19 Range/Units 06:23 06:23 06:23 WBC 9.4 (5.0-10.0) 10^3/uL RBC 4.30 L (4.6-6.2) 10^6/uL Hgb 13.0 L D (14.0-18.0) g/dL Hct 40.4 (40.0-54.0) % MCV 94.0 (80-100) fL MCH 30.2 (27.0-34.0) pg MCHC 32.2 L (33.0-35.0) g/dL Plt Count 198 (150-450) 10^3/uL Neut % (Auto) 60.8 (42.2-75.2) % Lymph % (Auto) 24.1 (20.5-50.1) % [place] % (Auto) 9.9 H (2-8) % Eos % (Auto) 4.8 H (1.0-3.0) % Baso % (Auto) 0.4 (0.0-1.0) % PT 10.6 (9.0-12.0) SEC INR 1.1 (0.9-1.2) D-Dimer, Quantitative 3270 H (0-400) ng/mL ABG pH (7.35-7.45) ABG pCO2 (35-45) mmHg ABG pO2 (70-100) mmHg ABG HCO3 (22-26) mmol/L ABG O2 Saturation (95-100) % ABG Base Excess ((-2)-(+3)) mmol/L Jason Test O2 Delivery Device Oxygen Flow Rate Sodium 140 (136-145) mmol/L Potassium 4.9 (3.5-5.1) mmol/L Chloride 104 (98-107) mmol/L Carbon Dioxide 23 (21-32) mmol/L Anion Gap 17.9 H (7-13) mEq/L BUN 43 H (7-18) mg/dL Creatinine 1.79 H (0.70-1.30) mg/dL Est Cr Clr Drug Dosing TNP Estimated GFR (MDRD) 36 BUN/Creatinine Ratio 24.0 (No establ ref range) Glucose 178 H (74-99) mg/dL Calcium 8.9 (8.5-10.1) mg/dL Magnesium 2.0 (1.8-2.4) mg/dL Total Bilirubin 0.8 (0.2-1.0) mg/dL AST 28 (15-37) U/L ALT 21 (16-63) U/L Alkaline Phosphatase 111 (46-116) U/L Troponin I 0.097 H* (0.000-0.056) ng/mL B-Natriuretic Peptide 4230 H (0-100) pg/ml Total Protein 8.3 H (6.4-8.2) g/dL Albumin 3.0 L (3.4-5.0) g/dL Globulin 5.3 Albumin/Globulin Ratio 0.57 Urine Color (YELLOW) Urine Appearance (CLEAR) Urine pH (5.0-9.0) Ur Specific [place] (1.005-1.030) Urine Protein (NEGATIVE) Urine Glucose (UA) (NEGATIVE) Urine Ketones (NEGATIVE) Urine Occult Blood (NEGATIVE) Urine Nitrite (NEGATIVE) Urine Bilirubin (NEGATIVE) Urine Urobilinogen (0.2-1.0) mg/dL Ur Leukocyte Esterase (NEGATIVE) Urine RBC /HPF Urine WBC (0-5/HPF) /HPF Ur Epithelial Cells (NOT SEEN) /HPF Amorphous Sediment (NOT SEEN) /HPF Urine Bacteria (0-FEW/HPF) /HPF Urine Mucus (NOT SEEN) /LPF 11/22/19 11/22/19 Range/Units 06:31 07:09 WBC (5.0-10.0) 10^3/uL RBC (4.6-6.2) 10^6/uL Hgb (14.0-18.0) g/dL Hct (40.0-54.0) % MCV (80-100) fL MCH (27.0-34.0) pg MCHC (33.0-35.0) g/dL Plt Count (150-450) 10^3/uL Neut % (Auto) (42.2-75.2) % Lymph % (Auto) (20.5-50.1) % [place] % (Auto) (2-8) % Eos % (Auto) (1.0-3.0) % Baso % (Auto) (0.0-1.0) % PT (9.0-12.0) SEC INR (0.9-1.2) D-Dimer, Quantitative (0-400) ng/mL ABG pH 7.27 L (7.35-7.45) ABG pCO2 45 (35-45) mmHg ABG pO2 103 H (70-100) mmHg ABG HCO3 19.6 L (22-26) mmol/L ABG O2 Saturation 97 (95-100) % ABG Base Excess -7 L ((-2)-(+3)) mmol/L Jason Test pos O2 Delivery Device Hi flow nasal cannu Oxygen Flow Rate 15 Sodium (136-145) mmol/L Potassium (3.5-5.1) mmol/L Chloride (98-107) mmol/L Carbon Dioxide (21-32) mmol/L Anion Gap (7-13) mEq/L BUN (7-18) mg/dL Creatinine (0.70-1.30) mg/dL Est Cr Clr Drug Dosing Estimated GFR (MDRD) BUN/Creatinine Ratio (No establ ref range) Glucose (74-99) mg/dL Calcium (8.5-10.1) mg/dL Magnesium (1.8-2.4) mg/dL Total Bilirubin (0.2-1.0) mg/dL AST (15-37) U/L ALT (16-63) U/L Alkaline Phosphatase (46-116) U/L Troponin I (0.000-0.056) ng/mL B-Natriuretic Peptide (0-100) pg/ml Total Protein (6.4-8.2) g/dL Albumin (3.4-5.0) g/dL Globulin Albumin/Globulin Ratio Urine Color Yellow (YELLOW) Urine Appearance Slightly cloudy (CLEAR) Urine pH 6.5 (5.0-9.0) Ur Specific [place] 1.020 (1.005-1.030) Urine Protein 100 H (NEGATIVE) Urine Glucose (UA) Negative (NEGATIVE) Urine Ketones Negative (NEGATIVE) Urine Occult Blood Negative (NEGATIVE) Urine Nitrite Negative (NEGATIVE) Urine Bilirubin Negative (NEGATIVE) Urine Urobilinogen 0.2 (0.2-1.0) mg/dL Ur Leukocyte Esterase Trace H (NEGATIVE) Urine RBC 0-5 /HPF Urine WBC 50-75 H (0-5/HPF) /HPF Ur Epithelial Cells Rare (NOT SEEN) /HPF Amorphous Sediment Rare (NOT SEEN) /HPF Urine Bacteria Rare (0-FEW/HPF) /HPF Urine Mucus Not seen (NOT SEEN) /LPF Meds: Medications Discontinued Medications Generic Name Dose Route Start Last Admin Trade Name Freq PRN Reason Stop Dose Admin Ceftriaxone Sodium Confirm 11/22/19 07:48 11/23/19 02:14 Rocephin Administered 11/22/19 07:49 Not Given Dose 1 gm .ROUTE .STK-MED ONE Furosemide Confirm 11/22/19 06:23 11/22/19 06:29 Lasix Administered 11/22/19 06:24 40 mg Dose Administration 40 mg .ROUTE .STK-MED ONE Furosemide 40 mg 11/22/19 06:20 11/22/19 06:55 Lasix IVPUSH 11/22/19 06:21 Not Given NOW ONE Nitroglycerin/Dextrose Confirm 11/22/19 06:24 11/22/19 06:45 Nitroglycerin 25 Mg/D5w 250 Ml Administered 11/22/19 06:25 10 mls/hr Dose Administration 25 mg in 250 mls @ as directed .ROUTE .STK-MED ONE Nitroglycerin/Dextrose 25 mg in 250 mls @ 3 mls/hr 11/22/19 06:20 11/22/19 06 :59 Nitroglycerin 25 Mg/D5w 250 Ml IV 15 mcg/min TITRATE IRAJ 9 mls/hr Titration Protocol 5 MCG/MIN Ceftriaxone Sodium 1 gm/ 50 mls @ 100 mls/hr 11/22/19 07:47 11/22/19 08:00 Sodium Chloride IV 11/22/19 08:16 Not Given ONETIME ONE Metoprolol Tartrate 2.5 mg 11/22/19 06:49 11/22/19 06:54 Lopressor IVPUSH 11/22/19 06:50 2.5 mg ONETIME ONE Administration - Re-Assessments/Exams Free Text/Narrative Re-Assessment/Exam: 11/22/19 08:26 Post intubation CXR 1. Endotracheal tube tip approximately 7.8 cm above the allison. 2. An enteric tube extends to the stomach. 3. Left perihilar airspace disease. Cannot exclude left hilar mass or adenopathy. After intubation care was taken over by F family was updated on the plan of care. Departure - Departure Time of Disposition: 07:30 Disposition: DC/Tfer to [facility] 02 Reason for Transfer *Q: Other Clinical Impression: Respiratory failure Qualifiers: Chronicity: acute Respiratory failure complication: hypoxia Qualified Code(s): J96.01 - Acute respiratory failure with hypoxia CHF (congestive heart failure) Qualifiers: Heart failure type: unspecified Heart failure chronicity: acute on chronic Qualified Code(s): I50.9 - Heart failure, unspecified Forms: ED Department Discharge Sepsis Event Note - Focused Exam Date Exam was Performed: 11/22/19 Time Exam was Performed: 08:07 - My Orders Last 24 Hours: My Active Orders 11/22/19 06:23 CULTURE BLOOD [BC] Stat 11/22/19 06:31 CULTURE URINE [RM] Urgent 11/22/19 06:35 CULTURE BLOOD [BC] Stat 11/22/19 06:40 CORONAVIRUS COVID-19 PCR PHL [MREF] Urgent 11/22/19 06:45 EKG Documentation Completion [RC] URGENT 11/22/19 07:52 Urinary Catheter Assessment [RC] ASDIRECTED 11/22/19 08:00 Insert Marx Catheter [Insert Urinary Catheter] [OM.PC] Q24H - Assessment/Plan Last 24 Hours: My Active Orders 11/22/19 06:23 CULTURE BLOOD [BC] Stat 11/22/19 06:31 CULTURE URINE [RM] Urgent 11/22/19 06:35 CULTURE BLOOD [BC] Stat 11/22/19 06:40 CORONAVIRUS COVID-19 PCR PHL [MREF] Urgent 11/22/19 06:45 EKG Documentation Completion [RC] URGENT 11/22/19 07:52 Urinary Catheter Assessment [RC] ASDIRECTED 11/22/19 08:00 Insert Marx Catheter [Insert Urinary Catheter] [OM.PC] Q24H Assessment:: CHF Respiratory distress leading to failure RSI intubation Plan: Transfer via F to [facility] ICU for further care and management. <Briana Naidu - Last Filed: 11/23/19 04:51> ED HPI GENERAL MEDICAL PROBLEM - General Source of Information: Reports: Patient, EMS History Limitations: Reports: No Limitations - History of Present Illness INITIAL COMMENTS - FREE TEXT/NARRATIVE: ED via [facility] with c/o SOB and chest pain. Pain sudden onset, Denied fever Has not been out of home x 9 days. Patient reported to have called daughter who then called 911. No nausea vomiting or weakness. Initial EKG for EMS wide complex tachycardia. BP 190-200. Chest Pain Score (Numeric/FACES): 4 Past Medical History HEENT History: Reports: Cataract Other HEENT History: wears glasses, hx of tonsilitis Cardiovascular History: Reports: Bypass, CAD, Heart Failure, High Cholesterol, Hypertension, Stents Respiratory History: Reports: Bronchitis, Recurrent Other Respiratory History: hx of strep throat Gastrointestinal History: Reports: None Genitourinary History: Reports: None Musculoskeletal History: Reports: Arthritis, Fracture Neurological History: Reports: None Psychiatric History: Reports: None Endocrine/Metabolic History: Reports: Diabetes, Type II Hematologic History: Reports: None Immunologic History: Reports: None Oncologic (Cancer) History: Reports: None Dermatologic History: Reports: Other (See Below) Other Dermatologic History: heat rash - Infectious Disease History Infectious Disease History: Reports: Chicken Pox, Measles, Mumps, Shingles - Past Surgical History HEENT Surgical History: Reports: Cataract Surgery Cardiovascular Surgical History: Reports: Coronary Artery Bypass GI Surgical History: Reports: None Endocrine Surgical History: Reports: None Musculoskeletal Surgical History: Reports: None Dermatological Surgical History: Reports: None Social & Family History - Family History Family Medical History: Noncontributory - Tobacco Use Smoking Status *Q: Never Smoker - Caffeine Use Caffeine Use: Reports: None - Recreational Drug Use Recreational Drug Use: No - Living Situation & Occupation Living situation: Reports: Single, Alone Occupation: Retired ED ROS GENERAL - Review of Systems Review Of Systems: Comprehensive ROS is negative, except as noted in HPI. ED EXAM, GENERAL - Physical Exam Exam: See Below Exam Limited By: No Limitations General Appearance: Alert, Anxious, Moderate Distress Eye Exam: Bilateral Eye: EOMI Ears: Normal External Exam, Hearing Loss Nose: Normal Inspection Throat/Mouth: Normal Inspection Head: Atraumatic, Normocephalic Neck: Normal Inspection Respiratory/Chest: Lungs Clear, Normal Breath Sounds, Rhonchi (left crackles mid right decreased right base), Prolonged Expiration. No: Wheezing Cardiovascular: Normal Peripheral Pulses, Regular Rate, Rhythm, No Edema, Tachycardia (wide complex) GI/Abdominal: Normal Bowel Sounds Extremities: Pedal Edema (trace) Neurological: Alert, Oriented, Normal Cognition Psychiatric: Anxious Skin Exam: Warm, Diaphoretic, Pallor EKG INTERPRETATION Rhythm: Other (ST) Course - Radiology Interpretation Free Text/Narrative:: CXR right pleural effusion, possible broncho pneumonia , see report - Re-Assessments/Exams Free Text/Narrative Re-Assessment/Exam: 11/22/19 07:[address] Jeffrey accepting patient, CHF, respiratory distress, Patient requiring increased oxygen, poorer respiratory effort, VMF here, Patient status declining. Elect Intubation . Critical Care Hospitalist TC. Continue current management. No additional recommendations. Tx Altru via VMF. Critical, stable condition at time of transfer. 11/23/19 04:50 Sepsis Event Note - Evaluation Sepsis Screening Result: No Definite Risk - Focused Exam Date Exam was Performed: 11/23/19 Time Exam was Performed: 04:49
[2019-11-22 07:14] LABS: BASE EXCESS ARTERIAL -7 mmol/L ((-2)-(+3)); BICARBONATE,ARTERIAL 19.6 mmol/L (22-26); O2 DELIVERY DEVICE HI FLOW NASAL CANNU; O2 SATURATION ARTERIAL 97 % (95-100); PCO2 ARTERIAL 45 mmHg (35-45); PO2 ARTERIAL 103 mmHg (70-100)
[2019-11-22 07:16] LABS: ALLEN TEST pos; O2 FLOW RATE 15
[2019-11-22] MEDS ORDERED: cefTRIAXone 1 GM in Sodium Chloride 0.9% 50 ML IV ONE (07:47)
[2019-11-22] MEDS ORDERED: cefTRIAXone 1 GM Vial ONE (07:48)
== END 2019-11-22 08:14 ==
LOC: DL.ED 06:13
DX: J96.01 Acute respiratory failure with hypoxia (principal); I11.0 Hypertensive heart disease with heart failure; I50.9 Heart failure, unspecified; I25.10 Atherosclerotic heart disease of native coronary artery without angina pectoris; E78.00 Pure hypercholesterolemia, unspecified; E11.9 Type 2 diabetes mellitus without complications; M19.90 Unspecified osteoarthritis, unspecified site; Z95.5 Presence of coronary angioplasty implant and graft; Z95.1 Presence of aortocoronary bypass graft; Z79.84 Long term (current) use of oral hypoglycemic drugs; Z79.82 Long term (current) use of aspirin; Z79.02 Long term (current) use of antithrombotics/antiplatelets; Z79.899 Other long term (current) drug therapy
CPT/HCPCS: 31500; 36415; 36600; 51702; 71045; 80053; 81001; 82803; 83735; 83880; 84484; 85025; 85379; 85610; 87040; 87086; 93005; 96365; 96366; 96375; 99285-25; J1940; J3490; U0002

== ENCOUNTER 2020-04-01 11:15 | Emergency (ER) | payer MEDICARE, OTHER ==
[2020-04-01 11:28] VITALS: BP 137/57; PULSE 65
--- NOTE | 2020-04-01 12:36 | EDM.PDOC ---
ED HPI GENERAL MEDICAL PROBLEM - General Chief Complaint: Chest Pain Stated Complaint: CHEST PAIN Time Seen by Provider: 04/01/20 12:15 Source of Information: Reports: Patient History Limitations: Reports: No Limitations - History of Present Illness INITIAL COMMENTS - FREE TEXT/NARRATIVE: This 84 yo male patient reports to the ED with dull chest pressure that started this morning at about 0800. The patient reports his symptoms went away prior to being seen in the ED. The patient does have a history of a triple bypass in the past. The patient did not take anything for temporary symptom relief prior to coming to the ED. Onset: Today Duration: Resolved Prior to Arrival Location: Reports: Chest Quality: Reports: Dull, Pressure Severity: Moderate Improves with: Reports: None Worsens with: Reports: None Context: Reports: Other Associated Symptoms: Reports: Chest Pain Chest Pain Score (Numeric/FACES): 3 - Related Data Allergies Allergy/AdvReac Type Severity Reaction Status Date / Time No Known Allergies Allergy Verified 04/01/20 11:32 Home Meds: Home Meds Isosorbide Mononitrate [Imdur] 30 mg PO DAILY 07/06/16 [History] atorvaSTATin [Lipitor] 40 mg PO BEDTIME 07/06/16 [History] glipiZIDE [Glucotrol] 2.5 mg PO BIDMEALS 09/24/16 [History] Levothyroxine 75 mcg PO ACBREAKFAST 12/14/16 [History] carvediloL [Carvedilol] 6.25 mg PO BID 01/07/17 [History] Cetirizine [ZyrTEC] 5 mg PO DAILY 05/20/19 [History] Clopidogrel [Plavix] 75 mg PO DAILY 05/20/19 [History] Finasteride 5 mg PO DAILY 05/20/19 [History] Ascorbic Acid [Vitamin C] 500 mg PO DAILY 06/19/19 [History] Cyanocobalamin (Vitamin B-12) [B-12] 500 mcg PO DAILY 06/19/19 [History] Diclofenac Sodium 4 gm TP QID 06/19/19 [History] Fish Oil/[place]-3 Fatty Acids [Fish Oil 1,000 MG] 1 gm PO DAILY 06/19/19 [History] Fluticasone Propionate 1 spray NASBOTH DAILY 06/19/19 [History] Magnesium 250 mg PO DAILY PRN 06/19/19 [History] Melatonin 5 mg PO BEDTIME PRN 06/19/19 [History] Multivitamin [Multi-Vitamin Daily] 1 each PO DAILY 06/19/19 [History] lisinopriL [Lisinopril] 10 mg PO DAILY 06/19/19 [History] Furosemide [Lasix] 20 mg PO BIDDIURETIC #60 tablet 06/21/19 [Rx] Past Medical History HEENT History: Reports: Cataract, Impaired Vision Other HEENT History: wears glasses, hx of tonsilitis Cardiovascular History: Reports: Bypass, CAD, Heart Failure, High Cholesterol, Hypertension, Stents Respiratory History: Reports: Bronchitis, Recurrent Other Respiratory History: hx of strep throat Gastrointestinal History: Reports: None Genitourinary History: Reports: None Musculoskeletal History: Reports: Arthritis, Fracture Neurological History: Reports: None Psychiatric History: Reports: None Endocrine/Metabolic History: Reports: Diabetes, Type II Hematologic History: Reports: None Immunologic History: Reports: None Oncologic (Cancer) History: Reports: None Dermatologic History: Reports: Other (See Below) Other Dermatologic History: heat rash - Infectious Disease History Infectious Disease History: Reports: Chicken Pox, Measles, Mumps, Shingles - Past Surgical History Head Surgeries/Procedures: Reports: None HEENT Surgical History: Reports: Cataract Surgery Cardiovascular Surgical History: Reports: Coronary Artery Bypass GI Surgical History: Reports: None Endocrine Surgical History: Reports: None Musculoskeletal Surgical History: Reports: None Dermatological Surgical History: Reports: None Social & Family History - Family History Family Medical History: Noncontributory - Tobacco Use Smoking Status *Q: Never Smoker - Caffeine Use Caffeine Use: Reports: Coffee - Recreational Drug Use Recreational Drug Use: No - Living Situation & Occupation Living situation: Reports: Single, Alone Occupation: Retired ED ROS GENERAL - Review of Systems Review Of Systems: Comprehensive ROS is negative, except as noted in HPI. ED EXAM, GENERAL - Physical Exam Exam: See Below Exam Limited By: No Limitations General Appearance: Alert, WD/WN, No Apparent Distress Eye Exam: Bilateral Eye: EOMI, Normal Inspection, PERRL Ears: Normal External Exam, Normal Canal, Hearing Grossly Normal, Normal TMs Nose: Normal Inspection, Normal Mucosa, No Blood Throat/Mouth: Normal Inspection, Normal Lips, Normal Teeth, Normal Gums, Normal Oropharynx, Normal Voice, No Airway Compromise Head: Atraumatic, Normocephalic Neck: Normal Inspection, Supple, Non-Tender, Full Range of Motion Respiratory/Chest: No Respiratory Distress, Lungs Clear, Normal Breath Sounds, No Accessory Muscle Use, Chest Non-Tender Cardiovascular: Normal Peripheral Pulses, Regular Rate, Rhythm, No Edema, No Gallop, No JVD, No Murmur, No Rub GI/Abdominal: Normal Bowel Sounds, Soft, Non-Tender, No Organomegaly, No Distention, No Abnormal Bruit, No Mass (Male) Exam: Deferred Rectal (Males) Exam: Deferred Back Exam: Normal Inspection, Full Range of Motion, NT Extremities: Normal Inspection, Normal Range of Motion, Non-Tender, Normal Capillary Refill, No Pedal Edema Neurological: Alert, Oriented, CN II-XII Intact, Normal Cognition, Normal Gait, Normal Reflexes, No Motor/Sensory Deficits Psychiatric: Normal Affect, Normal Mood Skin Exam: Warm, Dry, Intact, Normal Color, No Rash Lymphatic: No Adenopathy Course - Vital Signs Last Recorded V/S: Last Vital Signs Temp 36.9 C 04/01/20 11:25 Pulse 65 04/01/20 11:25 Resp 20 04/01/20 11:25 BP 137/57 L 04/01/20 11:25 Pulse Ox 99 04/01/20 11:25 - Orders/Labs/Meds Orders: Active Orders 24 hr Category Date Time Status EKG Documentation Completion [RC] ROUTINE Care 04/01/20 15:30 Active EKG Documentation Completion [RC] STAT Care 04/01/20 11:16 Active Labs: Laboratory Tests 04/01/20 04/01/20 04/01/20 Range/Units 11:24 11:24 15:37 WBC 5.1 (5.0-10.0) 10^3/uL RBC 3.14 L (4.6-6.2) 10^6/uL Hgb 9.6 L D (14.0-18.0) g/dL Hct 29.9 L (40.0-54.0) % MCV 95.2 (80-100) fL MCH 30.6 (27.0-34.0) pg MCHC 32.1 L (33.0-35.0) g/dL Plt Count 191 (150-450) 10^3/uL Neut % (Auto) 44.4 (42.2-75.2) % Lymph % (Auto) 30.5 (20.5-50.1) % [place] % (Auto) 18.4 H (2-8) % Eos % (Auto) 6.1 H (1.0-3.0) % Baso % (Auto) 0.6 (0.0-1.0) % Sodium 141 (136-145) mmol/L Potassium 4.0 (3.5-5.1) mmol/L Chloride 105 (98-107) mmol/L Carbon Dioxide 27 (21-32) mmol/L Anion Gap 13.0 (7-13) mEq/L BUN 59 H (7-18) mg/dL Creatinine 2.24 H (0.70-1.30) mg/dL Est Cr Clr Drug Dosing 23.75 mL/min Estimated GFR (MDRD) 28 BUN/Creatinine Ratio 26.3 (No establ ref range) Glucose 125 H (74-99) mg/dL Calcium 8.0 L (8.5-10.1) mg/dL Total Bilirubin 0.4 (0.2-1.0) mg/dL AST 21 (15-37) U/L ALT 28 (16-63) U/L Alkaline Phosphatase 82 (46-116) U/L Troponin I 0.033 0.022 (0.000-0.056) ng/mL Total Protein 6.6 (6.4-8.2) g/dL Albumin 2.6 L (3.4-5.0) g/dL Globulin 4.0 Albumin/Globulin Ratio 0.65 Departure - Departure Time of Disposition: 16:19 Disposition: Home, Self-Care 01 Condition: Fair Clinical Impression: Nonspecific chest pain Instructions: Nonspecific Chest Pain, Adult Forms: ED Department Discharge Care Plan Goals: The patient was advised of the examination, EKG, lab, x-ray, repeat EKG and repeat lab results during the visit. The patient reports no return of his chest pain during the visit in the ED. The patient was encouraged to continue to monitor for any additional symptoms. The patient was advised to take his medications as prescribed. If the patient has any additional symptoms or further concerns, the patient should either return to the emergency department or visit his primary care facility. Sepsis Event Note (ED) - Evaluation Sepsis Screening Result: No Definite Risk - Focused Exam Vital Signs: Vital Signs Temp Pulse Resp BP Pulse Ox 04/01/20 11:25 36.9 C 65 20 137/57 L 99 - My Orders Last 24 Hours: My Active Orders 04/01/20 11:16 EKG Documentation Completion [RC] STAT 04/01/20 15:30 EKG Documentation Completion [RC] ROUTINE - Assessment/Plan Last 24 Hours: My Active Orders 04/01/20 11:16 EKG Documentation Completion [RC] STAT 04/01/20 15:30 EKG Documentation Completion [RC] ROUTINE
--- NOTE | 2020-04-01 13:31 | CR ---
EXAMINATION: Chest 1V Frontal SEX: Male AGE: 84 years CLINICAL HISTORY: 84-year-old male chest pain. Comparison AP supine film 22 November 2019 revealed "pulmonary edema". INTERPRETATION: Radiographic IMPROVEMENT. Sternotomy wires and external php architect leads. Normal cardiac silhouette i.e. size and configuration despite generally poor inspiratory effort (smaller than comparison exam December 04, 2019). No pulmonary vascular congestion, cephalization of flow, alveolar edema or dependent pleural effusion. No new lung mass, hilar lymphadenopathy or focal lobar consolidation (infiltrate/atelectasis). No pneumothorax or pneumomediastinum. CONCLUSION:
== END 2020-04-01 16:41 | disposition home or self-care (01) ==
LOC: DL.ED 11:15
DX: R07.89 Other chest pain (principal); I25.10 Atherosclerotic heart disease of native coronary artery without angina pectoris; I11.0 Hypertensive heart disease with heart failure; I50.9 Heart failure, unspecified; E78.00 Pure hypercholesterolemia, unspecified; Z95.5 Presence of coronary angioplasty implant and graft; E11.9 Type 2 diabetes mellitus without complications; Z79.84 Long term (current) use of oral hypoglycemic drugs; Z79.02 Long term (current) use of antithrombotics/antiplatelets; Z79.899 Other long term (current) drug therapy
CPT/HCPCS: 36415; 71045; 80053; 84484; 85025; 93005; 99285-25

== ENCOUNTER 2020-12-27 08:10 | Emergency (ER) | payer MEDICARE, OTHER ==
[2020-12-27 08:43] VITALS: BP 193/98; PULSE 99
[2020-12-27 09:19] LABS: ANION GAP 15.4 mEq/L (7-13)
[2020-12-27 09:36] LABS: CORONAVIRUS COVID-19 NAA NEGATIVE (NEGATIVE)
--- NOTE | 2020-12-27 09:52 | EDM.PDOC ---
ED HPI GENERAL MEDICAL PROBLEM - General Chief Complaint: Headache Stated Complaint: FEVER FOR 3 DAYS PLUS UPSET STOMACHE Time Seen by Provider: 12/27/20 09:00 Source of Information: Reports: Patient History Limitations: Reports: No Limitations - History of Present Illness INITIAL COMMENTS - FREE TEXT/NARRATIVE: This 85 yo male patient was brought to the ED by a friend due to a headache for the past 3 days, difficulties seeing (chronic), abdominal pain and generalized weakness. The patient reports he has not been eating well for "quite a while" due to not being hungry. The patient reports he has also had some head congestion. The patient did call the CT today and was advised to come to the ED for evaluation. The patient was started on an oral steroid on 12/19/20 for gout and has been taking the medication as directed. The patient reports he did have some chest pain early this morning, but currently the patient denies any chest pain. The patient initially denied any abdominal pain to nursing, but reported the diffuse lower abdominal pain during assessment. Onset: Unknown/Unsure Duration: Constant Location: Reports: Head, Abdomen, Lower Extremity, Left Quality: Reports: Ache, Dull Severity: Moderate Improves with: Reports: None Worsens with: Reports: None Context: Reports: Other Associated Symptoms: Reports: No Other Symptoms Head Pain Score (Numeric/FACES): 10 - Related Data Allergies Allergy/AdvReac Type Severity Reaction Status Date / Time No Known Allergies Allergy Verified 12/27/20 10:10 Home Meds: Home Meds Isosorbide Mononitrate [Imdur] 30 mg PO DAILY 07/06/16 [History] atorvaSTATin [Lipitor] 40 mg PO BEDTIME 07/06/16 [History] glipiZIDE [Glucotrol] 2.5 mg PO BIDMEALS 09/24/16 [History] Levothyroxine 75 mcg PO ACBREAKFAST 12/14/16 [History] carvediloL [Carvedilol] 6.25 mg PO BID 01/07/17 [History] Cetirizine [ZyrTEC] 5 mg PO DAILY 05/20/19 [History] Clopidogrel [Plavix] 75 mg PO DAILY 05/20/19 [History] Finasteride 5 mg PO DAILY 05/20/19 [History] Ascorbic Acid [Vitamin C] 500 mg PO DAILY 06/19/19 [History] Cyanocobalamin (Vitamin B-12) [B-12] 500 mcg PO DAILY 06/19/19 [History] Diclofenac Sodium 4 gm TP QID 06/19/19 [History] Fish Oil/Hagan-3 Fatty Acids [Fish Oil 1,000 MG] 1 gm PO DAILY 06/19/19 [Histo ry] Fluticasone Propionate 1 spray NASBOTH DAILY 06/19/19 [History] Magnesium 250 mg PO DAILY PRN 06/19/19 [History] Melatonin 5 mg PO BEDTIME PRN 06/19/19 [History] Multivitamin [Multi-Vitamin Daily] 1 each PO DAILY 06/19/19 [History] lisinopriL [Lisinopril] 10 mg PO DAILY 06/19/19 [History] Furosemide [Lasix] 20 mg PO BIDDIURETIC #60 tablet 06/21/19 [Rx] Past Medical History HEENT History: Reports: Cataract, Impaired Vision Other HEENT History: wears glasses, hx of tonsilitis Cardiovascular History: Reports: Bypass, CAD, Heart Failure, High Cholesterol, Hypertension, Stents Respiratory History: Reports: Bronchitis, Recurrent Other Respiratory History: hx of strep throat Gastrointestinal History: Reports: None Genitourinary History: Reports: None Musculoskeletal History: Reports: Arthritis, Fracture Neurological History: Reports: None Psychiatric History: Reports: None Endocrine/Metabolic History: Reports: Diabetes, Type II Hematologic History: Reports: None Immunologic History: Reports: None Oncologic (Cancer) History: Reports: None Dermatologic History: Reports: Other (See Below) Other Dermatologic History: heat rash - Infectious Disease History Infectious Disease History: Reports: Chicken Pox, Measles, Mumps, Shingles - Past Surgical History Head Surgeries/Procedures: Reports: None HEENT Surgical History: Reports: Cataract Surgery Other HEENT Surgeries/Procedures: Pt states that he gets injections into bilateral eyes q 2 month for "diabetic complications" Cardiovascular Surgical History: Reports: Coronary Artery Bypass Other Cardiovascular Surgeries/Procedures: triple bypass Respiratory Surgical History: Reports: None GI Surgical History: Reports: None Endocrine Surgical History: Reports: None Musculoskeletal Surgical History: Reports: None Dermatological Surgical History: Reports: None Social & Family History - Family History Family Medical History: No Pertinent Family History - Caffeine Use Caffeine Use: Reports: Coffee - Living Situation & Occupation Living situation: Reports: Single, Alone Occupation: Retired ED ROS GENERAL - Review of Systems Review Of Systems: Comprehensive ROS is negative, except as noted in HPI. ED EXAM, GENERAL - Physical Exam Exam: See Below Exam Limited By: No Limitations General Appearance: Alert, WD/WN, Mild Distress Eye Exam: Bilateral Eye: EOMI, Normal Inspection Ears: Normal External Exam, Normal Canal, Hearing Grossly Normal, Normal TMs Nose: Normal Inspection, Normal Mucosa, No Blood Throat/Mouth: Normal Inspection, Normal Lips, Normal Teeth, Normal Gums, Normal Oropharynx, Normal Voice, No Airway Compromise Head: Atraumatic, Normocephalic Neck: Normal Inspection, Supple, Non-Tender, Full Range of Motion Respiratory/Chest: No Respiratory Distress, Lungs Clear, Normal Breath Sounds, No Accessory Muscle Use, Chest Non-Tender Cardiovascular: Normal Peripheral Pulses, Regular Rate, Rhythm, No Edema, No Gallop, No JVD, No Murmur, No Rub GI/Abdominal: Tender (lower abdomen), Abnormal Bowel Sounds (hypoactive) (Male) Exam: Deferred Rectal (Males) Exam: Deferred Back Exam: Normal Inspection, Full Range of Motion, NT Extremities: Leg Pain (left knee pain) Neurological: Alert, Oriented, CN II-XII Intact, Normal Cognition, Normal Gait, Normal Reflexes, No Motor/Sensory Deficits Psychiatric: Normal Affect, Normal Mood Skin Exam: Warm, Dry, Intact, Normal Color, No Rash Lymphatic: No Adenopathy Course - Vital Signs Last Recorded V/S: Last Vital Signs Temp 36.8 C 12/27/20 08:38 Pulse 99 12/27/20 08:38 Resp 40 H 12/27/20 08:38 BP 193/98 H 12/27/20 08:38 Pulse Ox 95 12/27/20 08:38 - Orders/Labs/Meds Orders: Active Orders 24 hr Category Date Time Status EKG Documentation Completion [RC] STAT Care 12/27/20 08:52 Active CULTURE BLOOD [BC] Stat Lab 12/27/20 08:45 Received UA W/MICROSCOPIC [URIN] Stat Lab 12/27/20 10:03 Results Labs: Laboratory Tests 12/27/20 12/27/20 12/27/20 Range/Units 08:26 08:34 08:45 WBC 8.4 (5.0-10.0) 10^3/uL RBC 3.48 L (4.6-6.2) 10^6/uL Hgb 10.8 L (14.0-18.0) g/dL Hct 33.4 L (40.0-54.0) % MCV 96.0 (80-100) fL MCH 31.0 (27.0-34.0) pg MCHC 32.3 L (33.0-35.0) g/dL Plt Count 213 (150-450) 10^3/uL Neut % (Auto) 63.5 (42.2-75.2) % Lymph % (Auto) 12.3 L (20.5-50.1) % [place] % (Auto) 16.5 H (2-8) % Eos % (Auto) 7.1 H (1.0-3.0) % Baso % (Auto) 0.6 (0.0-1.0) % Sodium (136-145) mmol/L Potassium (3.5-5.1) mmol/L Chloride (98-107) mmol/L Carbon Dioxide (21-32) mmol/L Anion Gap (7-13) mEq/L BUN (7-18) mg/dL Creatinine (0.70-1.30) mg/dL Est Cr Clr Drug Dosing mL/min Estimated GFR (MDRD) BUN/Creatinine Ratio (No establ ref range) Glucose (70-99) mg/dL POC Glucose 165 H (70-99) mg/dL Calcium (8.5-10.1) mg/dL Total Bilirubin (0.2-1.0) mg/dL AST (15-37) U/L ALT (16-63) U/L Alkaline Phosphatase (46-116) U/L Troponin I (0.000-0.056) ng/mL Total Protein (6.4-8.2) g/dL Albumin (3.4-5.0) g/dL Globulin Albumin/Globulin Ratio Urine Color (YELLOW) Urine Appearance (CLEAR) Urine pH (5.0-9.0) Ur Specific Fleming (1.005-1.030) Urine Protein (NEGATIVE) Urine Glucose (UA) (NEGATIVE) Urine Ketones (NEGATIVE) Urine Occult Blood (NEGATIVE) Urine Nitrite (NEGATIVE) Urine Bilirubin (NEGATIVE) Urine Urobilinogen (0.2-1.0) mg/dL Ur Leukocyte Esterase (NEGATIVE) Influenza Type A RNA Negative (NEGATIVE) Influenza Type B RNA Negative (NEGATIVE) SARS-CoV-2 RNA (GLADYS) Negative (NEGATIVE) 12/27/20 12/27/20 Range/Units 08:45 10:03 WBC (5.0-10.0) 10^3/uL RBC (4.6-6.2) 10^6/uL Hgb (14.0-18.0) g/dL Hct (40.0-54.0) % MCV (80-100) fL MCH (27.0-34.0) pg MCHC (33.0-35.0) g/dL Plt Count (150-450) 10^3/uL Neut % (Auto) (42.2-75.2) % Lymph % (Auto) (20.5-50.1) % [place] % (Auto) (2-8) % Eos % (Auto) (1.0-3.0) % Baso % (Auto) (0.0-1.0) % Sodium 137 (136-145) mmol/L Potassium 5.4 H (3.5-5.1) mmol/L Chloride 104 (98-107) mmol/L Carbon Dioxide 23 (21-32) mmol/L Anion Gap 15.4 H (7-13) mEq/L BUN 67 H (7-18) mg/dL Creatinine 1.96 H (0.70-1.30) mg/dL Est Cr Clr Drug Dosing 24.87 mL/min Estimated GFR (MDRD) 33 BUN/Creatinine Ratio 34.2 (No establ ref range) Glucose 190 H (70-99) mg/dL POC Glucose (70-99) mg/dL Calcium 8.6 (8.5-10.1) mg/dL Total Bilirubin 0.6 (0.2-1.0) mg/dL AST 20 (15-37) U/L ALT 29 (16-63) U/L Alkaline Phosphatase 69 (46-116) U/L Troponin I 0.067 H* (0.000-0.056) ng/mL Total Protein 6.8 (6.4-8.2) g/dL Albumin 2.9 L (3.4-5.0) g/dL Globulin 3.9 Albumin/Globulin Ratio 0.74 Urine Color Yellow (YELLOW) Urine Appearance Clear (CLEAR) Urine pH 5.0 (5.0-9.0) Ur Specific Fleming 1.015 (1.005-1.030) Urine Protein 100 H (NEGATIVE) Urine Glucose (UA) Negative (NEGATIVE) Urine Ketones Negative (NEGATIVE) Urine Occult Blood Negative (NEGATIVE) Urine Nitrite Negative (NEGATIVE) Urine Bilirubin Negative (NEGATIVE) Urine Urobilinogen 0.2 (0.2-1.0) mg/dL Ur Leukocyte Esterase Negative (NEGATIVE) Influenza Type A RNA (NEGATIVE) Influenza Type B RNA (NEGATIVE) SARS-CoV-2 RNA (GLADYS) (NEGATIVE) Meds: Medications Discontinued Medications Generic Name Dose Route Start Last Admin Trade Name Freq PRN Reason Stop Dose Admin Aspirin 324 mg 12/27/20 11:12 Aspirin 81 Mg Tab.Chew PO 12/27/20 11:13 ONETIME ONE Departure - Departure Time of Disposition: 11:19 Disposition: DC/Tfer to Acute Hospital 02 Condition: Fair Clinical Impression: Elevated troponin Headache Qualifiers: Headache type: unspecified Headache chronicity pattern: acute headache Intractability: intractable Qualified Code(s): R51.9 - Headache, unspecified - Discharge Information *PRESCRIPTION DRUG MONITORING PROGRAM REVIEWED*: Not Applicable *COPY OF PRESCRIPTION DRUG MONITORING REPORT IN PATIENT ANDREW: Not Applicable Forms: Interfacility Transfer EMTALA Care Plan Goals: Discussed the patient's history, examination, lab results, x-ray results and CT results with Dr. Yoder (CT in [place]) initially. Dr. Yoder advised that the patient be transferred to a facility that has cardiology due to the elevated Troponin level. The above information was then discussed with Dr. Lopez (Hospitalist with [facility] in [place]). Dr. Lopez accepted the patient for continued evaluation and management. The patient will be transported by [facility]. Sepsis Event Note (ED) - Evaluation Sepsis Screening Result: No Definite Risk - Focused Exam Vital Signs: Vital Signs Temp Pulse Resp BP Pulse Ox 12/27/20 08:38 36.8 C 99 40 H 193/98 H 95 - My Orders Last 24 Hours: My Active Orders 12/27/20 08:45 CULTURE BLOOD [BC] Stat 12/27/20 08:52 EKG Documentation Completion [RC] STAT 12/27/20 10:03 UA W/MICROSCOPIC [URIN] Stat - Assessment/Plan Last 24 Hours: My Active Orders 12/27/20 08:45 CULTURE BLOOD [BC] Stat 12/27/20 08:52 EKG Documentation Completion [RC] STAT 12/27/20 10:03 UA W/MICROSCOPIC [URIN] Stat
--- NOTE | 2020-12-27 10:28 | CT ---
PROCEDURE INFORMATION: Exam: CT Abdomen And Pelvis Without Contrast Exam date and time: 12/27/2020 10:02 AM Age: 85 years old Clinical indication: Other: Lower abdominal pain TECHNIQUE: Imaging protocol: Computed tomography of the abdomen and pelvis without contrast. Radiation optimization: All CT scans at this facility use at least one of these dose optimization techniques: automated exposure control; mA and/or kV adjustment per patient size (includes targeted exams where dose is matched to clinical indication); or iterative reconstruction. COMPARISON: No relevant prior studies available. FINDINGS: Lungs: Dependent atelectasis in the posterior lungs, right worse than. Pleural spaces: Moderate right pleural effusion. Small left effusion. Liver: Normal. No mass. Gallbladder and bile ducts: Cholelithiasis. Pancreas: Normal. No ductal dilation. Spleen: Normal. No splenomegaly. Adrenal glands: Normal. No mass. Kidneys and ureters: 3.2 cm water density lesion in the left kidney. This is likely a cyst. Consider ultrasound evaluation given limitations in technique on today's CT. Stomach and bowel: Sigmoid diverticulosis. No evidence of diverticulitis. Appendix: No evidence of appendicitis. Intraperitoneal space: Unremarkable. No free air. No significant fluid collection. Vasculature: Vascular calcifications including coronary artery calcifications. No aneurysm identified. Ectatic bilateral common iliac arteries. Lymph nodes: Unremarkable. No enlarged lymph nodes. Urinary bladder: Diffuse thickening of the wall of the urinary bladder could be due to chronic cystitis. Reproductive: Prostatic calcifications. Bones/joints: Sternotomy. Degenerative arthritis in the spine and pelvis. No worrisome bone lesions. Soft tissues: Containing small bilateral hernias. Other findings: Images are markedly degraded by patient motion. Elevated right. IMPRESSION: 1. Moderate right and small left pleural effusion 2. Thickening of the wall of the urinary bladder could be due to cystitis. 3. Cholelithiasis. 4. 3.2 cm probable cyst upper pole left kidney but difficult to evaluate due to motion and lack contrast. Ultrasound recommended 5. Images are severely degraded by motion COMMENTS: Consistent with the [place] [employer]'s Incidental Findings Committee white paper (J Am Lucio Radiol 2018): Any incidental renal lesion less than 1 cm or classified as too small to characterize, or any incidental cystic renal lesion characterized as simple-appearing, is likely benign. No follow-up imaging is recommended for these lesions per consensus recommendations based on imaging criteria.
--- NOTE | 2020-12-27 10:30 | CR ---
PROCEDURE INFORMATION: Exam: XR Chest Exam date and time: 12/27/2020 10:12 AM Age: 85 years old Clinical indication: Other: Fever TECHNIQUE: Imaging protocol: XR of the chest. Views: 1 view. COMPARISON: CR Chest 1V Frontal 11/22/2019 7:47 AM FINDINGS: Lungs: Diffuse bilateral interstitial prominence worse on the left could be due to edema or infiltrate. Pleural spaces: Elevated right hemidiaphragm possible small right pleural effusion. No pneumothorax. Heart/Mediastinum: Unremarkable. No cardiomegaly. Vasculature: Aortic calcifications. Diaphragm: Elevated right hemidiaphragm. Bones/joints: Sternotomy. IMPRESSION: 1. Diffuse bilateral interstitial prominence, worse on the left could be due to edema or infiltrate. 2. Elevated right hemidiaphragm possible small right pleural effusion.
--- NOTE | 2020-12-27 10:35 | CT ---
PROCEDURE INFORMATION: Exam: CT Head Without Contrast Exam date and time: 12/27/2020 10:02 AM Age: 85 years old Clinical indication: Other: Headache TECHNIQUE: Imaging protocol: Computed tomography of the head without contrast. Radiation optimization: All CT scans at this facility use at least one of these dose optimization techniques: automated exposure control; mA and/or kV adjustment per patient size (includes targeted exams where dose is matched to clinical indication); or iterative reconstruction. COMPARISON: CT Head wo Cont 12/14/2016 12:40 PM FINDINGS: Brain: Diffuse parenchymal atrophy appears slightly progressed compared to 12/14/2016. Areas of low-density in the periventricular white matter of the cerebral hemispheres and in the basal ganglia and vikram, have an appearance consistent consistent with chronic ischemic changes but appears slightly progressed compared with 12/14/2016. No intra-axial or extra-axial mass hemorrhage. No midline shift. Cerebral ventricles: No ventriculomegaly. Bones/joints: Unremarkable. No acute fracture. Paranasal sinuses: Minimal membrane thickening and fluid in the ethmoid sinuses, right maxillary sinus, and sphenoid sinuses. Mastoid air cells: Visualized mastoid air cells are well aerated. Vasculature: Vascular calcifications. Soft tissues: Unremarkable. Other findings: Images are degraded by motion IMPRESSION: 1. No acute intracranial abnormality. 2. Diffuse parenchymal atrophy and chronic ischemic change 3. Mild paranasal sinusitis 4. Images are degraded by motion
--- NOTE | 2020-12-27 10:38 | CT ---
PROCEDURE INFORMATION: Exam: CT Maxillofacial Without Contrast, Sinus Exam date and time: 12/27/2020 10:02 AM Age: 85 years old Clinical indication: Other: Headache TECHNIQUE: Imaging protocol: CT Maxillofacial without contrast. Focus on the sinuses. Radiation optimization: All CT scans at this facility use at least one of these dose optimization techniques: automated exposure control; mA and/or kV adjustment per patient size (includes targeted exams where dose is matched to clinical indication); or iterative reconstruction. COMPARISON: CT Head wo Cont 12/14/2016 12:40 PM FINDINGS: Frontal sinuses: Normal. No air-fluid levels. Ethmoid air cells: Mild membrane thickening Sphenoid sinuses: Mild membrane thickening with a small retention cyst on the right Maxillary sinuses: Mild membrane thickening on the right. Ostiomeatal units are patent. Nasal cavity/Septum: Slightly deviated to the Orbital cavity: Orbits are normal. Globes are unremarkable. Bones/joints: Unremarkable. Soft tissues: Unremarkable. IMPRESSION: Mild membrane thickening in the ethmoid and sphenoid sinuses and right maxillary sinus.
[2020-12-27] MEDS ORDERED: Aspirin 81 MG Tab.Chew PO ONE (11:12)
== END 2020-12-27 11:50 ==
LOC: DL.ED 08:10
DX: R51.9 Headache, unspecified (principal); R79.89 Other specified abnormal findings of blood chemistry; I25.10 Atherosclerotic heart disease of native coronary artery without angina pectoris; I11.0 Hypertensive heart disease with heart failure; I50.9 Heart failure, unspecified; E78.00 Pure hypercholesterolemia, unspecified; E11.9 Type 2 diabetes mellitus without complications; Z95.1 Presence of aortocoronary bypass graft; Z79.899 Other long term (current) drug therapy; Z20.822 Contact with and (suspected) exposure to COVID-19
CPT/HCPCS: 0240U; 36415; 70450; 70486; 71045; 74176; 80053; 81001; 82947; 84484; 85025; 87040; 93005; 99283; 99285-25; A9270-GY

== ENCOUNTER 2021-01-12 15:19 | Emergency (ER) | payer MEDICARE, OTHER ==
--- NOTE | 2021-01-12 15:31 | EDM.PDOC ---
ED HPI GENERAL MEDICAL PROBLEM - General Chief Complaint: Chest Pain Stated Complaint: CHEST PAIN / HEART ATTACK 2 WEEKS AGO Time Seen by Provider: 01/12/21 15:31 Source of Information: Reports: Patient, Family (Daughter), Old Records, RN, RN Notes Reviewed History Limitations: Reports: No Limitations - History of Present Illness INITIAL COMMENTS - FREE TEXT/NARRATIVE: Pt presents to ER from home by POV with c/o chest pain earlier today. Pt denies current chest pain. He isn't sure when the chest pain went away, because "everything else hurts". He states he took his Aspirin, Plavix and all his other regular medications today. Pt states he had a mild heart attack on or about 12/27/20 and was transferred to [facility] in where he had an angiogram, but no intervention due to narrow vessels. Pt had abdominal pain while at [facility] as well, but it is reported as chronic. Pt has Hx of CAD s/p CABG many years ago. Now in the ER he c/o pain to the right side of his abdomen. He claims that earlier today the left abdomen hurt, but now that pain has gone away. He denies fever, chills, N/V/D, or edema. Pt reports chronic, and unchanged shortness of breath. He had an ECHO on 12/28/20 with severely reduced left ventricular systolic function, grade I diastolic dysfunction, global hypokinesis of the left ventricle and an EF of 25%-30%. History of COPD, CHF, CAD, DM Type 2, CKD Stage 3, and abdominal pain. Onset: Today, Unknown/Unsure Duration: Resolved Prior to Arrival Location: Reports: Chest, Abdomen Quality: Reports: Ache, Same as Previous Episode Severity: Moderate Improves with: Reports: None Worsens with: Reports: None Associated Symptoms: Reports: No Other Symptoms Right Lower Abdomen Pain Score (Numeric/FACES): 7 - Related Data Allergies Allergy/AdvReac Type Severity Reaction Status Date / Time No Known Allergies Allergy Verified 01/12/21 15:43 Home Meds: Home Meds Isosorbide Mononitrate [Imdur] 30 mg PO DAILY 07/06/16 [History] atorvaSTATin [Lipitor] 40 mg PO BEDTIME 07/06/16 [History] glipiZIDE [Glucotrol] 2.5 mg PO BIDMEALS 09/24/16 [History] Levothyroxine 75 mcg PO ACBREAKFAST 12/14/16 [History] carvediloL [Carvedilol] 6.25 mg PO BID 01/07/17 [History] Cetirizine [ZyrTEC] 5 mg PO DAILY 05/20/19 [History] Clopidogrel [Plavix] 75 mg PO DAILY 05/20/19 [History] Finasteride 5 mg PO DAILY 05/20/19 [History] Ascorbic Acid [Vitamin C] 500 mg PO DAILY 06/19/19 [History] Cyanocobalamin (Vitamin B-12) [B-12] 500 mcg PO DAILY 06/19/19 [History] Diclofenac Sodium 4 gm TP QID 06/19/19 [History] Fish Oil/[place]-3 Fatty Acids [Fish Oil 1,000 MG] 1 gm PO DAILY 06/19/19 [History] Fluticasone Propionate 1 spray NASBOTH DAILY 06/19/19 [History] Magnesium 250 mg PO DAILY PRN 06/19/19 [History] Melatonin 5 mg PO BEDTIME PRN 06/19/19 [History] Multivitamin [Multi-Vitamin Daily] 1 each PO DAILY 06/19/19 [History] lisinopriL [Lisinopril] 10 mg PO DAILY 06/19/19 [History] Furosemide [Lasix] 20 mg PO BIDDIURETIC #60 tablet 06/21/19 [Rx] Past Medical History HEENT History: Reports: Cataract, Impaired Vision Other HEENT History: wears glasses, hx of tonsilitis Cardiovascular History: Reports: Bypass, CAD, Heart Failure, High Cholesterol, Hypertension, [place], SOB on Exertion, Stents Respiratory History: Reports: Bronchitis, Recurrent, COPD Other Respiratory History: hx of strep throat Gastrointestinal History: Reports: None Genitourinary History: Reports: None Musculoskeletal History: Reports: Arthritis, Fracture Neurological History: Reports: None Psychiatric History: Reports: None Endocrine/Metabolic History: Reports: Diabetes, Type II Hematologic History: Reports: None Immunologic History: Reports: None Oncologic (Cancer) History: Reports: None Dermatologic History: Reports: Other (See Below) Other Dermatologic History: heat rash - Infectious Disease History Infectious Disease History: Reports: Chicken Pox, Measles, Mumps, Shingles - Past Surgical History Head Surgeries/Procedures: Reports: None HEENT Surgical History: Reports: Cataract Surgery Other HEENT Surgeries/Procedures: Pt states that he gets injections into bilateral eyes q 2 month for "diabetic complications" Cardiovascular Surgical History: Reports: Coronary Artery Bypass Other Cardiovascular Surgeries/Procedures: triple bypass Respiratory Surgical History: Reports: None GI Surgical History: Reports: None Endocrine Surgical History: Reports: None Musculoskeletal Surgical History: Reports: None Dermatological Surgical History: Reports: None Social & Family History - Family History Family Medical History: No Pertinent Family History - Caffeine Use Caffeine Use: Reports: Coffee - Living Situation & Occupation Living situation: Reports: Single, Alone Occupation: Retired ED ROS GENERAL - Review of Systems Review Of Systems: Comprehensive ROS is negative, except as noted in HPI. ED EXAM, GENERAL - Physical Exam Exam: See Below Exam Limited By: No Limitations General Appearance: Alert, No Apparent Distress, Thin, Other (Fail elderly male) Eye Exam: Bilateral Eye: Normal Inspection Nose: Normal Inspection, No Blood Throat/Mouth: Normal Lips, Normal Voice, No Airway Compromise Head: Atraumatic, Normocephalic Neck: Normal Inspection, Non-Tender Respiratory/Chest: No Respiratory Distress, No Accessory Muscle Use, Chest Non- Tender, Decreased Breath Sounds, Rales. No: Crackles, Rhonchi, Wheezing Cardiovascular: Regular Rate, Rhythm, No Edema GI/Abdominal: Normal Bowel Sounds, Soft, No Organomegaly, No Distention, Tender (Mildly tender at RLQ). No: Guarding, Rigid, Rebound Back Exam: Normal Inspection Extremities: Normal Inspection, Normal Range of Motion, Non-Tender, Normal Capillary Refill, No Pedal Edema Neurological: Alert, Oriented, CN II-XII Intact, Normal Cognition, No Motor/Sensory Deficits Psychiatric: Normal Mood Skin Exam: Warm, Dry, Intact, Normal Color, No Rash #1 Interpretation EKG Date: 01/12/21 Time: 15:36 Rhythm: Other (SR with a PVC) Rate (Beats/Min): 72 P-Wave: Present QRS: LBBB (chronic) QT: Prolonged Comparison: No Change Course - Vital Signs Last Recorded V/S: Last Vital Signs Temp 98.6 F 01/12/21 15:39 Pulse 72 01/12/21 15:39 Resp 14 01/12/21 15:39 BP 161/77 H 01/12/21 15:39 Pulse Ox 95 01/12/21 15:39 - Orders/Labs/Meds Orders: Active Orders 24 hr Category Date Time Status EKG 12 Lead [EKG Documentation Completion] [RC] STAT Care 01/12/21 15:31 Active Peripheral IV Care [RC] . DIRECTED Care 01/12/21 15:45 Active Furosemide [Lasix] Med 01/12/21 18:30 Once 40 mg IVPUSH ONETIME ONE Sodium Chloride 0.9% [Saline Flush] Med 01/12/21 15:44 Active 10 ml FLUSH ASDIRECTED PRN Peripheral IV Insertion Adult [OM.PC] Stat Oth 01/12/21 15:44 Ordered Medication Orders Sodium Chloride (Sodium Chloride 0.9% 10 Ml Syringe) 10 ml FLUSH ASDIRECTED PRN PRN Reason: Keep Vein Open Last Admin: 01/12/21 18:16 Dose: 10 ml Documented by: [email or web address] Labs: Laboratory Tests 01/12/21 01/12/21 01/12/21 Range/Units 15:35 15:35 15:35 WBC 5.8 (5.0-10.0) 10^3/uL RBC 3.24 L (4.6-6.2) 10^6/uL Hgb 9.9 L (14.0-18.0) g/dL Hct 31.5 L (40.0-54.0) % MCV 97.2 (80-100) fL MCH 30.6 (27.0-34.0) pg MCHC 31.4 L (33.0-35.0) g/dL Plt Count 205 (150-450) 10^3/uL Neut % (Auto) 62.1 (42.2-75.2) % Lymph % (Auto) 17.2 L (20.5-50.1) % [place] % (Auto) 14.6 H (2-8) % Eos % (Auto) 5.2 H (1.0-3.0) % Baso % (Auto) 0.9 (0.0-1.0) % PT 11.1 (9.0-12.0) SEC INR 1.1 (0.9-1.2) APTT 24.1 (22.0-34.0) SEC Sodium 142 (136-145) mmol/L Potassium 5.0 (3.5-5.1) mmol/L Chloride 107 (98-107) mmol/L Carbon Dioxide 26 (21-32) mmol/L Anion Gap 14.0 H (7-13) mEq/L BUN 64 H (7-18) mg/dL Creatinine 1.95 H (0.70-1.30) mg/dL Est Cr Clr Drug Dosing 24.99 mL/min Estimated GFR (MDRD) 33 BUN/Creatinine Ratio 32.8 (No establ ref range) Glucose 168 H (70-99) mg/dL Calcium 8.4 L (8.5-10.1) mg/dL Total Bilirubin 0.5 (0.2-1.0) mg/dL AST 22 (15-37) U/L ALT 26 (16-63) U/L Alkaline Phosphatase 69 (46-116) U/L Troponin I 0.046 (0.000-0.056) ng/mL B-Natriuretic Peptide 1960 H (0-100) pg/ml Total Protein 6.9 (6.4-8.2) g/dL Albumin 2.7 L (3.4-5.0) g/dL Globulin 4.2 Albumin/Globulin Ratio 0.64 Amylase 71 (25-115) U/L Lipase 241 (73-393) U/L Meds: Medications Generic Name Dose Route Start Last Admin Trade Name Freq PRN Reason Stop Dose Admin Sodium Chloride 10 ml 01/12/21 15:44 01/12/21 18:16 Sodium Chloride 0.9% 10 Ml Syringe FLUSH 10 ml ASDIRECTED PRN Administration Keep Vein Open - Radiology Interpretation Free Text/Narrative:: [facility] Final Radiology Report Call: [phone] assistance Online chat: [email or web address] Name: SCOUT MIKE Age: 85Years M Date: 01/12/2021 SSN: -- : [id number] Study: CR CHEST 1V FRONTAL Requesting Physician: JEANETTE GÓMEZ Images: 2 Addl Studies: Provided Clinical History: chest pain Contrast: Contrast Medium: Contrast Amount: Contrast Method: CONFIDENTIALITY STATEMENT This report is intended only for use by the referring physician, and only in accordance with law. If you received this in error, call [phone]. Page 1 of 1 PROCEDURE INFORMATION: Exam: XR Chest Exam date and time: 01/12/2021 3:51 PM Age: 85 years old Clinical indication: Other: Chest pain TECHNIQUE: Imaging protocol: XR of the chest. Views: 1 view. COMPARISON: CR Chest 1V Frontal 12/27/2020 10:12 AM FINDINGS: Lungs: Diffuse bilateral interstitial prominence, progressed since 12/27/2020. Infiltrate or atelectasis in the lung bases. Pleural spaces: Unremarkable. No pleural effusion. No pneumothorax. Heart/Mediastinum: Unremarkable. No cardiomegaly. Vasculature: Aortic calcifications. Diaphragm: Elevated right hemidiaphragm appears stable. Bones/joints: Sternotomy. 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 IMPRESSION: 1. Diffuse bilateral interstitial prominence is progressed since 12/27/2020. No other appreciable change. Thank you for allowing us to participate in the care of your patient. Dictated and Authenticated by: Tiesha Tello MD 01/12/2021 3:58 PM Central Time ([place] & [place]) - Re-Assessments/Exams Free Text/Narrative Re-Assessment/Exam: 01/12/21 18:28 Pt is not interested or willing to consider NH or skilled care placement at this time. He does plan to move in with his girlfriend so she can care for him. I had a carli discussion with the pt and his daughter about the severity of his heart disease and progressive nature that it will likely take. I encouraged them to make a plan for what to do, or where he will go if becomes unable to care for himself. They agree to have a discussion and make a plan with his PCP. Departure - Departure Time of Disposition: 18:31 Disposition: Home, Self-Care 01 Condition: Fair Clinical Impression: Acute on chronic congestive heart failure with left ventricular diastolic dysfunction CKD (chronic kidney disease) stage 3, GFR 30-59 ml/min Qualifiers: Chronic kidney disease stage 3 subtype: unspecified whether 3a or 3b Qualified Code(s): N18.30 - Chronic kidney disease, stage 3 unspecified Instructions: Supporting Someone With Heart Failure, Heart Failure, Self Care, [id number] Forms: ED Department Discharge Additional Instructions: Hold the Lasix (Furosemide) 20mg dose tonight, then resume your regular dose tomorrow. Follow up in clinic with your primary doctor in the next 4 to 5 days for recheck. Make a plan with your family and your primary doctor for what you want to do in the event that you become unable to care for yourself at home. Sepsis Event Note (ED) - Focused Exam Vital Signs: Vital Signs Temp Pulse Resp BP Pulse Ox 01/12/21 15:39 98.6 F 72 14 161/77 H 95 - My Orders Last 24 Hours: My Active Orders 01/12/21 15:31 EKG 12 Lead [EKG Documentation Completion] [RC] STAT 01/12/21 15:44 Sodium Chloride 0.9% [Saline Flush] 10 ml FLUSH ASDIRECTED PRN Peripheral IV Insertion Adult [OM.PC] Stat 01/12/21 15:45 Peripheral IV Care [RC] . DIRECTED 01/12/21 18:30 Furosemide [Lasix] 40 mg IVPUSH ONETIME ONE - Assessment/Plan Last 24 Hours: My Active Orders 01/12/21 15:31 EKG 12 Lead [EKG Documentation Completion] [RC] STAT 01/12/21 15:44 Sodium Chloride 0.9% [Saline Flush] 10 ml FLUSH ASDIRECTED PRN Peripheral IV Insertion Adult [OM.PC] Stat 01/12/21 15:45 Peripheral IV Care [RC] . DIRECTED 01/12/21 18:30 Furosemide [Lasix] 40 mg IVPUSH ONETIME ONE
[2021-01-12 15:43] VITALS: BP 161/77; PULSE 72
[2021-01-12] MEDS ORDERED: Sodium Chloride 0.9% 10 ML Syringe FLUSH PRN (15:44)
--- NOTE | 2021-01-12 15:58 | CR ---
PROCEDURE INFORMATION: Exam: XR Chest Exam date and time: 01/12/2021 3:51 PM Age: 85 years old Clinical indication: Other: Chest pain TECHNIQUE: Imaging protocol: XR of the chest. Views: 1 view. COMPARISON: CR Chest 1V Frontal 12/27/2020 10:12 AM FINDINGS: Lungs: Diffuse bilateral interstitial prominence, progressed since 12/27/2020. Infiltrate or atelectasis in the lung bases. Pleural spaces: Unremarkable. No pleural effusion. No pneumothorax. Heart/Mediastinum: Unremarkable. No cardiomegaly. Vasculature: Aortic calcifications. Diaphragm: Elevated right hemidiaphragm appears stable. Bones/joints: Sternotomy. 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 IMPRESSION: 1. Diffuse bilateral interstitial prominence is progressed since 12/27/2020. No other appreciable change.
[2021-01-12 16:05] LABS: PTT,PARTIAL THROMBOPLSTIN TIME 24.1 SEC (22.0-34.0)
[2021-01-12] MEDS ORDERED: Furosemide 40 MG/4 ML VIAL IVPUSH ONE (18:30)
== END 2021-01-12 18:46 | disposition home or self-care (01) ==
LOC: DL.ED 15:19
DX: I13.0 Hypertensive heart and chronic kidney disease with heart failure and stage 1 through stage 4 chronic kidney disease, or unspecified chronic kidney disease (principal); N18.30 Chronic kidney disease, stage 3 unspecified; I50.33 Acute on chronic diastolic (congestive) heart failure; I25.10 Atherosclerotic heart disease of native coronary artery without angina pectoris; E78.00 Pure hypercholesterolemia, unspecified; I25.2 Old myocardial infarction; Z95.1 Presence of aortocoronary bypass graft; Z79.82 Long term (current) use of aspirin; Z79.899 Other long term (current) drug therapy
CPT/HCPCS: 36415; 71045; 80053; 82150; 83690; 83880; 84484; 85025; 85610; 85730; 93005; 93010; 96374; 99284; 99285-25; J1940

== ENCOUNTER 2021-01-17 10:46 | Emergency (ER) | payer OTHER, MEDICARE ==
--- NOTE | 2021-01-17 10:47 | EDM.PDOC ---
ED HPI GENERAL MEDICAL PROBLEM - General Chief Complaint: General Stated Complaint: HEADACHE Time Seen by Provider: 01/17/21 10:47 Source of Information: Reports: Patient, Family, Old Records, RN, RN Notes Reviewed History Limitations: Reports: No Limitations - History of Present Illness INITIAL COMMENTS - FREE TEXT/NARRATIVE: Pt sent from [place] clinic for check of labs and low BP. Pt denies any specific complaints. He admits to chronic aches and pain, and generalized weakness. Pt states he has an appointment in less than 2 hours to make arrangements to move in to a care facility, and he will leave for that appointment whether his ER evaluation is complete or not. Duration: Chronic Location: Reports: Generalized Improves with: Reports: None Worsens with: Reports: None Associated Symptoms: Reports: No Other Symptoms - Related Data Allergies Allergy/AdvReac Type Severity Reaction Status Date / Time No Known Allergies Allergy Verified 01/12/21 15:43 Home Meds: Home Meds Isosorbide Mononitrate [Imdur] 30 mg PO DAILY 07/06/16 [History] atorvaSTATin [Lipitor] 40 mg PO BEDTIME 07/06/16 [History] glipiZIDE [Glucotrol] 2.5 mg PO BIDMEALS 09/24/16 [History] Levothyroxine 75 mcg PO ACBREAKFAST 12/14/16 [History] carvediloL [Carvedilol] 6.25 mg PO BID 01/07/17 [History] Cetirizine [ZyrTEC] 5 mg PO DAILY 05/20/19 [History] Clopidogrel [Plavix] 75 mg PO DAILY 05/20/19 [History] Finasteride 5 mg PO DAILY 05/20/19 [History] Ascorbic Acid [Vitamin C] 500 mg PO DAILY 06/19/19 [History] Cyanocobalamin (Vitamin B-12) [B-12] 500 mcg PO DAILY 06/19/19 [History] Diclofenac Sodium 4 gm TP QID 06/19/19 [History] Fish Oil/[place]-3 Fatty Acids [Fish Oil 1,000 MG] 1 gm PO DAILY 06/19/19 [History] Fluticasone Propionate 1 spray NASBOTH DAILY 06/19/19 [History] Magnesium 250 mg PO DAILY PRN 06/19/19 [History] Melatonin 5 mg PO BEDTIME PRN 06/19/19 [History] Multivitamin [Multi-Vitamin Daily] 1 each PO DAILY 06/19/19 [History] lisinopriL [Lisinopril] 10 mg PO DAILY 06/19/19 [History] Furosemide [Lasix] 20 mg PO BIDDIURETIC #60 tablet 06/21/19 [Rx] Past Medical History HEENT History: Reports: Cataract, Impaired Vision Other HEENT History: wears glasses, hx of tonsilitis Cardiovascular History: Reports: Bypass, CAD, Heart Failure, High Cholesterol, Hypertension, [place], SOB on Exertion, Stents Respiratory History: Reports: Bronchitis, Recurrent, COPD Other Respiratory History: hx of strep throat Gastrointestinal History: Reports: None Genitourinary History: Reports: None Musculoskeletal History: Reports: Arthritis, Fracture Neurological History: Reports: None Psychiatric History: Reports: None Endocrine/Metabolic History: Reports: Diabetes, Type II Hematologic History: Reports: None Immunologic History: Reports: None Oncologic (Cancer) History: Reports: None Dermatologic History: Reports: Other (See Below) Other Dermatologic History: heat rash - Infectious Disease History Infectious Disease History: Reports: Chicken Pox, Measles, Mumps, Shingles - Past Surgical History Head Surgeries/Procedures: Reports: None HEENT Surgical History: Reports: Cataract Surgery Other HEENT Surgeries/Procedures: Pt states that he gets injections into bilateral eyes q 2 month for "diabetic complications" Cardiovascular Surgical History: Reports: Coronary Artery Bypass Other Cardiovascular Surgeries/Procedures: triple bypass Respiratory Surgical History: Reports: None GI Surgical History: Reports: None Endocrine Surgical History: Reports: None Musculoskeletal Surgical History: Reports: None Dermatological Surgical History: Reports: None Social & Family History - Family History Family Medical History: No Pertinent Family History - Caffeine Use Caffeine Use: Reports: Coffee - Living Situation & Occupation Living situation: Reports: Single, Alone Occupation: Retired ED ROS GENERAL - Review of Systems Review Of Systems: Comprehensive ROS is negative, except as noted in HPI. ED EXAM, GENERAL - Physical Exam Exam: See Below Exam Limited By: No Limitations General Appearance: Alert, No Apparent Distress, Other (Frail elderly male) Eye Exam: Bilateral Eye: Normal Inspection Nose: Normal Inspection Throat/Mouth: Normal Voice, No Airway Compromise Head: Atraumatic, Normocephalic Neck: Normal Inspection, Non-Tender Respiratory/Chest: No Respiratory Distress, Lungs Clear, No Accessory Muscle Use, Chest Non-Tender, Decreased Breath Sounds Cardiovascular: Regular Rate, Rhythm, No JVD, Other (chronic/stable +2 edema to B/L knees) GI/Abdominal: Normal Bowel Sounds, Soft, Non-Tender Extremities: Normal Range of Motion, Non-Tender, Pedal Edema Neurological: Alert, Oriented, CN II-XII Intact, Normal Cognition, No Motor/Sensory Deficits Psychiatric: Normal Affect, Depressed Mood Skin Exam: Warm, Dry, Normal Color #1 Interpretation EKG Date: 01/17/21 Time: 10:55 Rhythm: Other (SR) Rate (Beats/Min): 52 [place]: LAD-Left [place] Deviation P-Wave: Present QRS: LBBB (chronic) QT: Normal Comparison: No Change Course - Vital Signs Last Recorded V/S: Last Vital Signs Temp 97.2 F 01/17/21 10:51 Pulse 56 L 01/17/21 10:51 Resp 16 01/17/21 10:51 BP 125/52 L 01/17/21 10:51 Pulse Ox 95 01/17/21 10:51 - Orders/Labs/Meds Labs: Laboratory Tests 01/17/21 01/17/21 Range/Units 11:19 11:19 WBC 3.7 L (5.0-10.0) 10^3/uL RBC 2.74 L (4.6-6.2) 10^6/uL Hgb 8.5 L (14.0-18.0) g/dL Hct 26.8 L (40.0-54.0) % MCV 97.8 (80-100) fL MCH 31.0 (27.0-34.0) pg MCHC 31.7 L (33.0-35.0) g/dL Plt Count 177 (150-450) 10^3/uL Neut % (Auto) 44.1 (42.2-75.2) % Lymph % (Auto) 28.5 (20.5-50.1) % [place] % (Auto) 20.3 H (2-8) % Eos % (Auto) 5.7 H (1.0-3.0) % Baso % (Auto) 1.4 H (0.0-1.0) % Sodium 142 (136-145) mmol/L Potassium 4.7 (3.5-5.1) mmol/L Chloride 107 (98-107) mmol/L Carbon Dioxide 25 (21-32) mmol/L Anion Gap 14.7 H (7-13) mEq/L BUN 73 H (7-18) mg/dL Creatinine 2.38 H (0.70-1.30) mg/dL Est Cr Clr Drug Dosing 22.69 mL/min Estimated GFR (MDRD) 26 BUN/Creatinine Ratio 30.7 (No establ ref range) Glucose 142 H (70-99) mg/dL Calcium 8.1 L (8.5-10.1) mg/dL Total Bilirubin 0.4 (0.2-1.0) mg/dL AST 16 (15-37) U/L ALT 23 (16-63) U/L Alkaline Phosphatase 57 (46-116) U/L B-Natriuretic Peptide 2140 H (0-100) pg/ml Total Protein 6.2 L (6.4-8.2) g/dL Albumin 2.5 L (3.4-5.0) g/dL Globulin 3.7 Albumin/Globulin Ratio 0.68 - Re-Assessments/Exams Free Text/Narrative Re-Assessment/Exam: 01/17/21 12:18 Exam findings and diagnostic results explained to patient. He is not willing to be admitted or transferred at this time. He has an appointment regarding placement to a base care/assisted living facility as [facility] today and he will not miss the appointment. I have advise the pt to f/u with nephrology and cardiology. He states he will have the [place] ensure the referrals are made. He was advised to see his clinic provider for lab recheck early next week. Departure - Departure Time of Disposition: 12:16 Disposition: Home, Self-Care 01 Condition: Fair Clinical Impression: CHF (congestive heart failure) Qualifiers: Heart failure type: unspecified Heart failure chronicity: acute on chronic Qualified Code(s): I50.9 - Heart failure, unspecified CKD (chronic kidney disease) stage 3, GFR 30-59 ml/min Qualifiers: Chronic kidney disease stage 3 subtype: stage 3b (GFR 30-44) Qualified Code(s): N18.32 - Chronic kidney disease, stage 3b Anemia Qualifiers: Anemia type: unspecified type Qualified Code(s): D64.9 - Anemia, unspecified - Discharge Information *PRESCRIPTION DRUG MONITORING PROGRAM REVIEWED*: Not Applicable *COPY OF PRESCRIPTION DRUG MONITORING REPORT IN PATIENT ANDREW: Not Applicable Instructions: Food Basics for Chronic Kidney Disease, Heart Failure, Self Care, Heart Failure Eating Plan Forms: ED Department Discharge Additional Instructions: Continue current medications exactly as prescribed. Follow up with field recorder within the next 2 weeks. Ask you primary doctor for a referral to a wire cutter (kidney specialist).
[2021-01-17 10:54] VITALS: BP 125/52; PULSE 56
[2021-01-17 11:45] LABS: ANION GAP 14.7 mEq/L (7-13)
== END 2021-01-17 12:22 | disposition home or self-care (01) ==
LOC: DL.ED 10:46
DX: I13.0 Hypertensive heart and chronic kidney disease with heart failure and stage 1 through stage 4 chronic kidney disease, or unspecified chronic kidney disease (principal); E11.22 Type 2 diabetes mellitus with diabetic chronic kidney disease; N18.32 Chronic kidney disease, stage 3b; I50.9 Heart failure, unspecified; D63.1 Anemia in chronic kidney disease; I25.10 Atherosclerotic heart disease of native coronary artery without angina pectoris; E78.00 Pure hypercholesterolemia, unspecified; I25.2 Old myocardial infarction; J44.9 Chronic obstructive pulmonary disease, unspecified; I44.7 Left bundle-branch block, unspecified; Z79.84 Long term (current) use of oral hypoglycemic drugs; Z79.02 Long term (current) use of antithrombotics/antiplatelets; Z79.899 Other long term (current) drug therapy
CPT/HCPCS: 36415; 80053; 83880; 85025; 93005; 93010; 99284; 99284-25

== ENCOUNTER 2021-03-10 15:00 | Emergency (ER) | payer OTHER ==
[2021-03-10 15:16] VITALS: BP 122/43; PULSE 64
--- NOTE | 2021-03-10 15:57 | EDM.PDOC ---
ED HPI GENERAL MEDICAL PROBLEM - General Chief Complaint: Headache Stated Complaint: WALK IN Time Seen by Provider: 03/10/21 15:40 Source of Information: Reports: Patient History Limitations: Reports: No Limitations - History of Present Illness INITIAL COMMENTS - FREE TEXT/NARRATIVE: This 85 yo male patient reports to the ED due to intermittent headaches over the past 2 days. The patient reports he did take 1 ibuprofen (200 mg) today at noon. The patient reports his headache is much better now. The patient reports he has been sleeping too much during the day, but does not sleep at night. 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 The patient denies any cough, cold, nausea, vomiting or diarrhea. The patient reports he has been eating normally, but has not been drinking as much fluid as he should. Onset Date: 03/09/21 Duration: Intermittent Location: Reports: Head Quality: Reports: Ache, Dull Severity: Moderate Improves with: Reports: Medication Worsens with: Reports: None Context: Reports: Other Associated Symptoms: Reports: No Other Symptoms Treatments EXTENSION SPECIALIST: Reports: NSAIDS headache Pain Score (Numeric/FACES): 6 - Related Data Allergies Allergy/AdvReac Type Severity Reaction Status Date / Time No Known Allergies Allergy Verified 03/10/21 15:17 Home Meds: Home Meds Isosorbide Mononitrate [Imdur] 30 mg PO DAILY 07/06/16 [History] atorvaSTATin [Lipitor] 40 mg PO BEDTIME 07/06/16 [History] glipiZIDE [Glucotrol] 2.5 mg PO BIDMEALS 09/24/16 [History] Levothyroxine 75 mcg PO ACBREAKFAST 12/14/16 [History] carvediloL [Carvedilol] 6.25 mg PO BID 01/07/17 [History] Cetirizine [ZyrTEC] 5 mg PO DAILY 05/20/19 [History] Clopidogrel [Plavix] 75 mg PO DAILY 05/20/19 [History] Finasteride 5 mg PO DAILY 05/20/19 [History] Ascorbic Acid [Vitamin C] 500 mg PO DAILY 06/19/19 [History] Cyanocobalamin (Vitamin B-12) [B-12] 500 mcg PO DAILY 06/19/19 [History] Diclofenac Sodium 4 gm TP QID 06/19/19 [History] Fish Oil/Bee-3 Fatty Acids [Fish Oil 1,000 MG] 1 gm PO DAILY 06/19/19 [History] Fluticasone Propionate 1 spray NASBOTH DAILY 06/19/19 [History] Magnesium 250 mg PO DAILY PRN 06/19/19 [History] Melatonin 5 mg PO BEDTIME PRN 06/19/19 [History] Multivitamin [Multi-Vitamin Daily] 1 each PO DAILY 06/19/19 [History] lisinopriL [Lisinopril] 10 mg PO DAILY 06/19/19 [History] Furosemide [Lasix] 20 mg PO BIDDIURETIC #60 tablet 06/21/19 [Rx] Past Medical History HEENT History: Reports: Cataract, Impaired Vision Other HEENT History: wears glasses, hx of tonsilitis Cardiovascular History: Reports: Bypass, CAD, Heart Failure, High Cholesterol, Hypertension, ID, SOB on Exertion, Stents Respiratory History: Reports: Bronchitis, Recurrent, COPD Other Respiratory History: hx of strep throat Gastrointestinal History: Reports: None Genitourinary History: Reports: None Musculoskeletal History: Reports: Arthritis, Fracture Neurological History: Reports: None Psychiatric History: Reports: None Endocrine/Metabolic History: Reports: Diabetes, Type II Hematologic History: Reports: None Immunologic History: Reports: None Oncologic (Cancer) History: Reports: None Dermatologic History: Reports: Other (See Below) Other Dermatologic History: heat rash - Infectious Disease History Infectious Disease History: Reports: Chicken Pox, Measles, Mumps, Shingles - Past Surgical History Head Surgeries/Procedures: Reports: None HEENT Surgical History: Reports: Cataract Surgery Other HEENT Surgeries/Procedures: Pt states that he gets injections into bilateral eyes q 2 month for "diabetic complications" Cardiovascular Surgical History: Reports: Coronary Artery Bypass Other Cardiovascular Surgeries/Procedures: triple bypass Respiratory Surgical History: Reports: None GI Surgical History: Reports: None Endocrine Surgical History: Reports: None Musculoskeletal Surgical History: Reports: None Dermatological Surgical History: Reports: None Social & Family History - Family History Family Medical History: No Pertinent Family History - Tobacco Use Tobacco Use Status *Q: Never Tobacco User Second Hand Smoke Exposure: No - Caffeine Use Caffeine Use: Reports: None - Recreational Drug Use Recreational Drug Use: No - Living Situation & Occupation Living situation: Reports: Single, Alone Occupation: Retired ED ROS GENERAL - Review of Systems Review Of Systems: Comprehensive ROS is negative, except as noted in HPI. - Physical Exam Exam: See Below Exam Limited By: No Limitations General Appearance: Alert, WD/WN, Mild Distress Eye Exam: Bilateral Eye: EOMI, Normal Inspection, PERRL Ears: Normal External Exam, Normal Canal, Hearing Grossly Normal, Normal TMs Nose: Normal Inspection, Normal Mucosa, No Blood Throat/Mouth: Normal Inspection, Normal Lips, Normal Teeth, Normal Gums, Normal Oropharynx, Normal Voice, No Airway Compromise Head Exam: Atraumatic, Normocephalic Neck: Normal Inspection, Supple, Non-Tender, Full Range of Motion Respiratory/Chest: No Respiratory Distress, Lungs Clear, Normal Breath Sounds, No Accessory Muscle Use, Chest Non-Tender Cardiovascular: Normal Peripheral Pulses, Regular Rate, Rhythm, No Edema, No Gallop, No JVD, No Murmur, No Rub GI/Abdominal: Normal Bowel Sounds, Soft, Non-Tender, No Organomegaly, No Distention, No Abnormal Bruit, No Mass (Male) Exam: Deferred Rectal (Males) Exam: Deferred Neuro Exam (Abbreviated): Alert, Oriented, CN II-XII Intact, Normal Cognition, Normal Gait, Normal Reflexes, No Motor/Sensory Deficits Back Exam: Normal Inspection, Full Range of Motion, NT Extremities: Normal Inspection, Normal Range of Motion, Non-Tender, No Pedal Edema, Normal Capillary Refill Psychiatric: Normal Affect, Normal Mood Skin Exam: Warm, Dry, Intact, Normal Color, No Rash Course - Vital Signs Last Recorded V/S: Last Vital Signs Temp 97.6 F 03/10/21 15:09 Pulse 64 03/10/21 15:09 Resp 20 03/10/21 15:09 BP 122/43 L 03/10/21 15:09 Pulse Ox 98 03/10/21 15:09 - Orders/Labs/Meds Orders: Active Orders 24 hr Category Date Time Status Sodium Chloride 0.9% [Normal Saline] 500 ml Med 03/10/21 16:30 Ordered IV .BOLUS Medication Orders Sodium Chloride (Normal Saline) 500 mls @ 999 mls/hr IV .BOLUS IRAJ Labs: Laboratory Tests 03/10/21 03/10/21 Range/Units 15:41 15:41 WBC 4.3 L (5.0-10.0) 10^3/uL RBC 2.75 L (4.6-6.2) 10^6/uL Hgb 8.5 L (14.0-18.0) g/dL Hct 27.0 L (40.0-54.0) % MCV 98.2 (80-100) fL MCH 30.9 (27.0-34.0) pg MCHC 31.5 L (33.0-35.0) g/dL Plt Count 154 (150-450) 10^3/uL Neut % (Auto) 39.4 L (42.2-75.2) % Lymph % (Auto) 27.9 (20.5-50.1) % [place] % (Auto) 22.0 H (2-8) % Eos % (Auto) 9.8 H (1.0-3.0) % Baso % (Auto) 0.9 (0.0-1.0) % Sodium 143 (136-145) mmol/L Potassium 5.2 H (3.5-5.1) mmol/L Chloride 108 H (98-107) mmol/L Carbon Dioxide 26 (21-32) mmol/L Anion Gap 14.2 H (7-13) mEq/L BUN 73 H (7-18) mg/dL Creatinine 2.50 H (0.70-1.30) mg/dL Est Cr Clr Drug Dosing 20.90 mL/min Estimated GFR (MDRD) 25 BUN/Creatinine Ratio 29.2 (No establ ref range) Glucose 116 H (70-99) mg/dL Calcium 8.0 L (8.5-10.1) mg/dL Total Bilirubin 0.4 (0.2-1.0) mg/dL AST 13 L (15-37) U/L ALT 17 (16-63) U/L Alkaline Phosphatase 59 (46-116) U/L Total Protein 5.8 L (6.4-8.2) g/dL Albumin 2.4 L (3.4-5.0) g/dL Globulin 3.4 Albumin/Globulin Ratio 0.71 Meds: Medications Generic Name Dose Route Start Last Admin Trade Name Freq PRN Reason Stop Dose Admin Sodium Chloride 500 mls @ 999 mls/hr 03/10/21 16:30 Normal Saline IV .BOLUS IRAJ - Re-Assessments/Exams Free Text/Narrative Re-Assessment/Exam: 03/10/21 16:21 The patient was advised of the lab results and would like some IV fluids. Departure - Departure Time of Disposition: 16:21 Disposition: Home, Self-Care 01 Condition: Fair Clinical Impression: Mild dehydration Headache Qualifiers: Headache type: unspecified Headache chronicity pattern: acute headache Intractability: intractable Qualified Code(s): R51.9 - Headache, unspecified - Discharge Information *PRESCRIPTION DRUG MONITORING PROGRAM REVIEWED*: Not Applicable *COPY OF PRESCRIPTION DRUG MONITORING REPORT IN PATIENT ANDREW: Not Applicable Instructions: Dehydration, Elderly, [id number], General Headache Without Cause, [id number] Forms: ED Department Discharge Care Plan Goals: The patient was advised of the examination and lab results during the visit. The patient was given IV fluids during the visit. The patient was encouraged to increase his oral fluid intake. If the patient has any additional symptoms or concerns, the patient should either return to the emergency department or visit his primary care facility. Sepsis Event Note (ED) - Evaluation Sepsis Screening Result: No Definite Risk - Focused Exam Vital Signs: Vital Signs Temp Pulse Resp BP Pulse Ox 03/10/21 15:09 97.6 F 64 20 122/43 L 98 - My Orders Last 24 Hours: My Active Orders 03/10/21 16:30 Sodium Chloride 0.9% [Normal Saline] 500 ml IV .BOLUS - Assessment/Plan Last 24 Hours: My Active Orders 03/10/21 16:30 Sodium Chloride 0.9% [Normal Saline] 500 ml IV .BOLUS
[2021-03-10 16:06] LABS: ANION GAP 14.2 mEq/L (7-13)
[2021-03-10] MEDS ORDERED: Sodium Chloride 0.9% 500 ML IV SCH (16:30)
== END 2021-03-10 16:59 | disposition home or self-care (01) ==
LOC: DL.ED 15:00
DX: E86.0 Dehydration (principal); R51.9 Headache, unspecified; I25.10 Atherosclerotic heart disease of native coronary artery without angina pectoris; I11.0 Hypertensive heart disease with heart failure; I50.9 Heart failure, unspecified; E78.00 Pure hypercholesterolemia, unspecified; I25.2 Old myocardial infarction; J44.9 Chronic obstructive pulmonary disease, unspecified; M19.90 Unspecified osteoarthritis, unspecified site; E11.9 Type 2 diabetes mellitus without complications; Z79.84 Long term (current) use of oral hypoglycemic drugs; Z79.02 Long term (current) use of antithrombotics/antiplatelets; Z79.899 Other long term (current) drug therapy
CPT/HCPCS: 36415; 80053; 85025; 99283; J7040

== ENCOUNTER 2021-07-08 10:02 | Inpatient (IN) | payer OTHER, MEDICARE ==
--- NOTE | 2021-07-08 10:49 | EDM.PDOC ---
ED HPI GENERAL MEDICAL PROBLEM - General Stated Complaint: [facility] Time Seen by Provider: 07/08/21 10:35 Source of Information: Reports: Patient History Limitations: Reports: No Limitations - History of Present Illness INITIAL COMMENTS - FREE TEXT/NARRATIVE: This 85 yo male patient was [facility] due to increased shortness of breath. The patient reports he has had a cold for the past week, a headache (pressure in front of head) and shortness of breath. The [facility] provider reported that the patient had an oxygen saturation < 90%. The patient has a history of CHF, Diabetes and kidney failure. Duration: Day(s): Location: Reports: Head, Chest Quality: Reports: Other Severity: Moderate Improves with: Reports: None Worsens with: Reports: None Context: Reports: Other Associated Symptoms: Reports: cough w sputum Head Pain Score (Numeric/FACES): 0 - Related Data Allergies Allergy/AdvReac Type Severity Reaction Status Date / Time No Known Allergies Allergy Verified 07/08/21 10:49 Home Meds: Home Meds Albuterol [Ventolin HFA] 1 puff .XX ASDIRECTED 07/08/21 [History] Ascorbic Acid [C-500] 500 mg PO ASDIRECTED 07/08/21 [History] Aspirin 81 mg PO DAILY 07/08/21 [History] Cetirizine HCl [All Day Allergy Relief] 10 mg PO ASDIRECTED 07/08/21 [History] Clopidogrel Bisulfate [Plavix] 75 mg PO DAILY 07/08/21 [History] Diclofenac Sodium [Diclo Gel] 1 each TP ASDIRECTED 07/08/21 [History] Finasteride [Proscar] 5 mg PO ASDIRECTED 07/08/21 [History] Flaxseed/Omega3,6,9/Fatty Acid [Flax Seed Oil 1,300 mg Softgel] 1 each PO ASDIRECTED 07/08/21 [History] Fluocinonide [Lidex 0.05% Crm] 15 gm .XX ASDIRECTED 07/08/21 [History] Fluticasone Propionate [Flovent] 1 puff IH BID 07/08/21 [History] Furosemide 40 mg PO ASDIRECTED 07/08/21 [History] Levothyroxine Sodium [Levothyroxine] 88 mcg PO ASDIRECTED 07/08/21 [History] Magnesium 250 mg PO ASDIRECTED 07/08/21 [History] Menthol/Zinc Oxide [Calmoseptine Ointment Packet] 3.5 gm TP ASDIRECTED 07/08/21 [History] Potassium Chloride [Klor-Con M20] 20 meq PO ASDIRECTED 07/08/21 [History] atorvaSTATin Calcium [Atorvastatin Calcium] 80 mg PO ASDIRECTED 07/08/21 [History] carvediloL [Carvedilol] 25 mg PO ASDIRECTED 07/08/21 [History] guaiFENesin/Dextromethorphan [Guaifenesin-Dm 100-10 mg/5 ml] 5 ml PO ASDIRECTED 07/08/21 [History] lisinopriL [Lisinopril] 10 mg PO ASDIRECTED 07/08/21 [History] Past Medical History HEENT History: Reports: Cataract, Impaired Vision Other HEENT History: wears glasses, hx of tonsilitis Cardiovascular History: Reports: Bypass, CAD, Heart Failure, High Cholesterol, Hypertension, [place], SOB on Exertion, Stents Respiratory History: Reports: Bronchitis, Recurrent, COPD Other Respiratory History: hx of strep throat Gastrointestinal History: Reports: None Genitourinary History: Reports: None Musculoskeletal History: Reports: Arthritis, Fracture Neurological History: Reports: None Psychiatric History: Reports: None Endocrine/Metabolic History: Reports: Diabetes, Type II Hematologic History: Reports: None Immunologic History: Reports: None Oncologic (Cancer) History: Reports: None Dermatologic History: Reports: Other (See Below) Other Dermatologic History: heat rash - Infectious Disease History Infectious Disease History: Reports: Chicken Pox, Measles, Mumps, Shingles - Past Surgical History Head Surgeries/Procedures: Reports: None HEENT Surgical History: Reports: Cataract Surgery Other HEENT Surgeries/Procedures: Pt states that he gets injections into bilateral eyes q 2 month for "diabetic complications" Cardiovascular Surgical History: Reports: Coronary Artery Bypass Other Cardiovascular Surgeries/Procedures: triple bypass Respiratory Surgical History: Reports: None GI Surgical History: Reports: None Endocrine Surgical History: Reports: None Musculoskeletal Surgical History: Reports: None Dermatological Surgical History: Reports: None Social & Family History - Family History Family Medical History: No Pertinent Family History - Caffeine Use Caffeine Use: Reports: None - Living Situation & Occupation Living situation: Reports: Single, Alone Occupation: Retired ED ROS GENERAL - Review of Systems Review Of Systems: Comprehensive ROS is negative, except as noted in HPI. ED EXAM, GENERAL - Physical Exam Exam: See Below Exam Limited By: No Limitations General Appearance: Alert, WD/WN, Moderate Distress, Thin Eye Exam: Bilateral Eye: EOMI, Normal Inspection, PERRL Ears: Normal External Exam, Normal Canal, Hearing Grossly Normal, Normal TMs Nose: Normal Inspection, Normal Mucosa, No Blood Throat/Mouth: Normal Inspection, Normal Lips, Normal Teeth, Normal Gums, Normal Oropharynx, Normal Voice, No Airway Compromise Head: Atraumatic, Normocephalic, Sinus Tenderness Neck: Normal Inspection, Supple, Non-Tender, Full Range of Motion Respiratory/Chest: Decreased Breath Sounds Cardiovascular: Normal Peripheral Pulses, Regular Rate, Rhythm, No Edema, No Gallop, No JVD, No Murmur, No Rub GI/Abdominal: Normal Bowel Sounds, Soft, Non-Tender, No Organomegaly, No Distention, No Abnormal Bruit, No Mass (Male) Exam: Deferred Rectal (Males) Exam: Deferred Back Exam: Normal Inspection, Full Range of Motion, NT Extremities: Normal Inspection, Normal Range of Motion, Non-Tender, Normal Capillary Refill, No Pedal Edema Neurological: Alert, Oriented, CN II-XII Intact, Normal Cognition, Normal Gait, Normal Reflexes, No Motor/Sensory Deficits Psychiatric: Normal Affect, Normal Mood Skin Exam: Warm, Dry, Intact, Normal Color, No Rash Lymphatic: No Adenopathy #1 Interpretation EKG Date: 07/08/21 Time: 10:30 Rhythm: NSR Rate (Beats/Min): 61 [place]: Normal P-Wave: Present QRS: LBBB ST-T: Normal QT: Normal Comparison: No Change Course - Vital Signs Last Recorded V/S: Last Vital Signs Temp 99 F 07/08/21 10:31 Pulse 62 07/08/21 10:31 Resp 22 H 07/08/21 10:31 BP 169/79 H 07/08/21 10:31 Pulse Ox 97 07/08/21 10:31 - Orders/Labs/Meds Orders: Active Orders 24 hr Category Date Time Status Admission Diagnosis [ADT] Urgent ADT 07/08/21 13:23 Ordered Admission Status [Patient Status] [ADT] Urgent ADT 07/08/21 13:23 Ordered CULTURE BLOOD [BC] Stat Lab 07/08/21 10:21 Received UA RFX MELANY AND CULT IF INDIC [URIN] Urgent Lab 07/08/21 10:06 Ordered Labs: Laboratory Tests 07/08/21 07/08/21 07/08/21 Range/Units 10:20 10:21 10:21 WBC 5.4 (5.0-10.0) 10^3/uL RBC 3.10 L (4.6-6.2) 10^6/uL Hgb 9.6 L (14.0-18.0) g/dL Hct 31.1 L (40.0-54.0) % MCV 100.3 H (80-100) fL MCH 31.0 (27.0-34.0) pg MCHC 30.9 L (33.0-35.0) g/dL Plt Count 171 (150-450) 10^3/uL Neut % (Auto) 54.1 (42.2-75.2) % Lymph % (Auto) 19.9 L (20.5-50.1) % [place] % (Auto) 21.2 H (2-8) % Eos % (Auto) 4.2 H (1.0-3.0) % Baso % (Auto) 0.6 (0.0-1.0) % D-Dimer, Quantitative 2340 H (0-400) ng/mL Sodium (136-145) mmol/L Potassium (3.5-5.1) mmol/L Chloride (98-107) mmol/L Carbon Dioxide (21-32) mmol/L Anion Gap (7-13) mEq/L BUN (7-18) mg/dL Creatinine (0.70-1.30) mg/dL Est Cr Clr Drug Dosing mL/min Estimated GFR (MDRD) BUN/Creatinine Ratio (No establ ref range) Glucose (70-99) mg/dL Lactic Acid (0.4-2.0) mmol/L Calcium (8.5-10.1) mg/dL Total Bilirubin (0.2-1.0) mg/dL AST (15-37) U/L ALT (16-63) U/L Alkaline Phosphatase (46-116) U/L Troponin I High Sens (<=76) pg/mL B-Natriuretic Peptide (0-100) pg/ml Total Protein (6.4-8.2) g/dL Albumin (3.4-5.0) g/dL Globulin Albumin/Globulin Ratio Influenza Type A RNA Negative (NEGATIVE) Influenza Type B RNA Negative (NEGATIVE) SARS-CoV-2 RNA (GLADYS) Negative (NEGATIVE) 07/08/21 07/08/21 Range/Units 10:21 10:21 WBC (5.0-10.0) 10^3/uL RBC (4.6-6.2) 10^6/uL Hgb (14.0-18.0) g/dL Hct (40.0-54.0) % MCV (80-100) fL MCH (27.0-34.0) pg MCHC (33.0-35.0) g/dL Plt Count (150-450) 10^3/uL Neut % (Auto) (42.2-75.2) % Lymph % (Auto) (20.5-50.1) % [place] % (Auto) (2-8) % Eos % (Auto) (1.0-3.0) % Baso % (Auto) (0.0-1.0) % D-Dimer, Quantitative (0-400) ng/mL Sodium 147 H (136-145) mmol/L Potassium 4.7 (3.5-5.1) mmol/L Chloride 109 H (98-107) mmol/L Carbon Dioxide 27 (21-32) mmol/L Anion Gap 15.7 H (7-13) mEq/L BUN 61 H (7-18) mg/dL Creatinine 2.32 H (0.70-1.30) mg/dL Est Cr Clr Drug Dosing 19.49 mL/min Estimated GFR (MDRD) 27 BUN/Creatinine Ratio 26.3 (No establ ref range) Glucose 127 H (70-99) mg/dL Lactic Acid 1.1 (0.4-2.0) mmol/L Calcium 8.7 (8.5-10.1) mg/dL Total Bilirubin 0.7 (0.2-1.0) mg/dL AST 20 (15-37) U/L ALT 19 (16-63) U/L Alkaline Phosphatase 79 (46-116) U/L Troponin I High Sens 42 (<=76) pg/mL B-Natriuretic Peptide 2830 H (0-100) pg/ml Total Protein 7.2 (6.4-8.2) g/dL Albumin 2.7 L (3.4-5.0) g/dL Globulin 4.5 Albumin/Globulin Ratio 0.60 Influenza Type A RNA (NEGATIVE) Influenza Type B RNA (NEGATIVE) SARS-CoV-2 RNA (GLADYS) (NEGATIVE) Departure - Departure Time of Disposition: 13:26 Disposition: Refer to Observation Condition: Fair Clinical Impression: Hypoxemia CHF (congestive heart failure) Qualifiers: Heart failure type: unspecified Heart failure chronicity: acute on chronic Qualified Code(s): I50.9 - Heart failure, unspecified - Discharge Information *PRESCRIPTION DRUG MONITORING PROGRAM REVIEWED*: Not Applicable *COPY OF PRESCRIPTION DRUG MONITORING REPORT IN PATIENT ANDREW: Not Applicable Care Plan Goals: Discussed the patient's history, examination and lab results with Dr. Hook. Dr. Hook accepted the patient for continued evaluation and further management as an observation patient at [facility]. Sepsis Event Note (ED) - Focused Exam Vital Signs: Vital Signs Temp Pulse Resp BP Pulse Ox 07/08/21 10:31 99 F 62 22 H 169/79 H 97 - My Orders Last 24 Hours: My Active Orders 07/08/21 10:06 UA RFX MELANY AND CULT IF INDIC [URIN] Urgent 07/08/21 10:21 CULTURE BLOOD [BC] Stat 07/08/21 13:23 Admission Diagnosis [ADT] Urgent Admission Status [Patient Status] [ADT] Urgent - Assessment/Plan Last 24 Hours: My Active Orders 07/08/21 10:06 UA RFX MELANY AND CULT IF INDIC [URIN] Urgent 07/08/21 10:21 CULTURE BLOOD [BC] Stat 07/08/21 13:23 Admission Diagnosis [ADT] Urgent Admission Status [Patient Status] [ADT] Urgent
[2021-07-08 10:52] LABS: ANION GAP 15.7 mEq/L (7-13)
[2021-07-08 11:10] LABS: CORONAVIRUS COVID-19 NAA NEGATIVE (NEGATIVE)
--- NOTE | 2021-07-08 13:13 | CR ---
EXAMINATION: Chest 2V SEX: Male AGE: 85 years CLINICAL HISTORY: 85-year-old male shortness of breath. Comparison CXR's and 12 Jan 2021 Interpretation: 1. Asymmetric elevation right hemidiaphragm and chronic pleural reactive changes right base as noted on previous exams of December 2020. 2. Sternotomy wires. External clinical research monitor leads. No increase in cardiac silhouette. 3. No pulmonary vascular congestion, new cephalization of vascular flow or alveolar edema. Small pleural effusion blunting the posterior costophrenic sulcus left lower lobe. 5. No new lung mass or hilar lymphadenopathy. 6. No new alveolar infiltrates, air bronchograms or peripheral "groundglass" interstitial lung densities. 7. No pneumothorax or pneumomediastinum. CONCLUSION: Unchanged. No active new cardiopulmonary abnormality since comparison exams December 2020.
[2021-07-08] MEDS ORDERED: Ondansetron 4 MG/2 ML SDV IVPUSH PRN (14:29)
[2021-07-08] MEDS ORDERED: Temazepam 15 MG Cap PO PRN (14:29)
[2021-07-08] MEDS ORDERED: Albuterol/Ipratropium 3.0-0.5 MG/3 ML Neb Soln NEB PRN (15:27)
--- NOTE | 2021-07-08 15:35 | PCM.HP ---
H&P History of Present Illness - General Date of Service: 07/08/21 Admit Problem/Dx: Admission Diagnosis/Problem Admission Diagnosis/Problem Short of breath on exertion Source of Information: Patient - History of Present Illness Initial Comments - Free Text/Narative: info from patient, ER provider, Daughter (by phone) went to [place] [facility] for regular follow up noted to have o2 sat < 90% sent to ER pt lives alone h/o dementia lives alone [facility], private urgent care daughter lives in [place] - she was hoping he can live there - actively looking for place to live patient does not know what meds he is taking he is not clear why he was in ER earlier was c/o sob and congestion now denies any problems "I am doing better then most of you " Head Pain Score (Numeric/FACES): 0 - Related Data Allergies/Adverse Reactions: Allergies Allergy/AdvReac Type Severity Reaction Status Date / Time No Known Allergies Allergy Verified 07/08/21 10:49 Home Medications: Home Meds Albuterol [Ventolin HFA] 2 puff INH Q6H PRN 07/08/21 [History] Ascorbic Acid [C-500] 500 mg PO BEDTIME 07/08/21 [History] Aspirin 81 mg PO 1200 07/08/21 [History] Cetirizine HCl [All Day Allergy Relief] 5 mg PO 1200 07/08/21 [History] Clopidogrel Bisulfate [Plavix] 75 mg PO 1200 07/08/21 [History] Diclofenac Sodium [Diclo Gel] 4 gm TOP QID PRN 07/08/21 [History] Finasteride [Proscar] 5 mg PO 1200 07/08/21 [History] Fish Oil/[place]-3 Fatty Acids [Fish Oil 1,000 MG] 1 gm PO DAILY 07/08/21 [History] Flaxseed/Omega3,6,9/Fatty Acid [Flax Seed Oil 1,300 mg Softgel] 1 each PO BEDTIME 07/08/21 [History] Fluocinonide [Lidex 0.05% Crm] 15 gm .XX ASDIRECTED 07/08/21 [History] Fluticasone Propionate [24 Hour Allergy] 1 spray NS DAILY 07/08/21 [History] Furosemide 60 mg PO 0800 07/08/21 [History] Furosemide [Lasix] 20 mg PO BEDTIME 07/08/21 [History] Levothyroxine Sodium [Levothyroxine] 88 mcg PO DAILY 07/08/21 [History] Magnesium 250 mg PO BEDTIME PRN 07/08/21 [History] Melatonin 5 mg PO BEDTIME PRN 07/08/21 [History] Menthol/Zinc Oxide [Calmoseptine] 3.5 gm TOP TID PRN 07/08/21 [History] Nitroglycerin [Nitrostat] 0.4 mg SL Q5M PRN 07/08/21 [History] Potassium Chloride 10 meq PO DAILY 07/08/21 [History] atorvaSTATin Calcium [Atorvastatin Calcium] 40 mg PO 1200 07/08/21 [History] carvediloL [Carvedilol] 12.5 mg PO BID 07/08/21 [History] guaiFENesin/Dextromethorphan [Guaifenesin-Dm 100-10 mg/5 ml] 5 ml PO ASDIRECTED 07/08/21 [History] lisinopriL [Lisinopril] 5 mg PO 1200 07/08/21 [History] polyethylene glycoL 3350 [MiraLAX] 17 gm PO .MO.WE.FR PRN 07/08/21 [History] Past Medical History HEENT History: Reports: Cataract, Impaired Vision Other HEENT History: wears glasses, hx of tonsilitis Cardiovascular History: Reports: Bypass, CAD, Heart Failure, High Cholesterol, Hypertension, PR, SOB on Exertion, Stents Respiratory History: Reports: Bronchitis, Recurrent, COPD Other Respiratory History: hx of strep throat Gastrointestinal History: Reports: None Genitourinary History: Reports: None Musculoskeletal History: Reports: Arthritis, Fracture Neurological History: Reports: None Psychiatric History: Reports: None Endocrine/Metabolic History: Reports: Diabetes, Type II Hematologic History: Reports: None Immunologic History: Reports: None Oncologic (Cancer) History: Reports: None Dermatologic History: Reports: Other (See Below) Other Dermatologic History: heat rash - Infectious Disease History Infectious Disease History: Reports: Chicken Pox, Measles, Mumps, Shingles - Past Surgical History Head Surgeries/Procedures: Reports: None HEENT Surgical History: Reports: Cataract Surgery Other HEENT Surgeries/Procedures: Pt states that he gets injections into bilateral eyes q 2 month for "diabetic complications" Cardiovascular Surgical History: Reports: Coronary Artery Bypass Other Cardiovascular Surgeries/Procedures: triple bypass Respiratory Surgical History: Reports: None GI Surgical History: Reports: None Endocrine Surgical History: Reports: None Musculoskeletal Surgical History: Reports: None Dermatological Surgical History: Reports: None Social & Family History - Family History Family Medical History: No Pertinent Family History - Tobacco Use Tobacco Use Status *Q: Unknown Ever Used Tobacco - Caffeine Use Caffeine Use: Reports: Tea - Recreational Drug Use Recreational Drug Use: No - Living Situation & Occupation Living situation: Reports: Single, Alone Occupation: Retired H&P Review of Systems - Review of Systems: Review Of Systems: Unable To Obtain Reason Not Obtained: patient is not reliable , more info from daughter General: Reports: Malaise, Weakness. Denies: Fever Cardiovascular: Denies: Chest Pain Gastrointestinal: Denies: Abdominal Pain Genitourinary: Denies: Dysuria Exam - Exam Exam: See Below - Vital Signs Vital Signs: Last Vital Signs Temp 98.3 F 07/08/21 13:53 Pulse 75 07/08/21 13:53 Resp 25 H 07/08/21 13:53 BP 152/67 H 07/08/21 13:53 Pulse Ox 91 L 07/08/21 14:29 Weight: 157 lb - Exam Quality Assessment: No: Supplemental Oxygen General: Alert. No: Oriented Neck: Supple Lungs: Normal Respiratory Effort, Decreased Breath Sounds Cardiovascular: Regular Rate, Regular Rhythm GI/Abdominal Exam: Normal Bowel Sounds, Soft, Non-Tender Extremities: Pedal Edema (trace edema) Neuro Extensive - Mental Status: Alert, Memory Loss-Recent Events. No: Oriented x3, Memory Intact Psychiatric: Alert, Normal Affect, Normal Mood - Patient Data Lab Results Last 24 hrs: Laboratory Results - last 24 hr 07/08/21 07/08/21 07/08/21 Range/Units 10:20 10:21 10:21 WBC 5.4 (5.0-10.0) 10^3/uL RBC 3.10 L (4.6-6.2) 10^6/uL Hgb 9.6 L (14.0-18.0) g/dL Hct 31.1 L (40.0-54.0) % MCV 100.3 H (80-100) fL MCH 31.0 (27.0-34.0) pg MCHC 30.9 L (33.0-35.0) g/dL Plt Count 171 (150-450) 10^3/uL Neut % (Auto) 54.1 (42.2-75.2) % Lymph % (Auto) 19.9 L (20.5-50.1) % [place] % (Auto) 21.2 H (2-8) % Eos % (Auto) 4.2 H (1.0-3.0) % Baso % (Auto) 0.6 (0.0-1.0) % D-Dimer, Quantitative 2340 H (0-400) ng/mL Sodium (136-145) mmol/L Potassium (3.5-5.1) mmol/L Chloride (98-107) mmol/L Carbon Dioxide (21-32) mmol/L Anion Gap (7-13) mEq/L BUN (7-18) mg/dL Creatinine (0.70-1.30) mg/dL Est Cr Clr Drug Dosing mL/min Estimated GFR (MDRD) BUN/Creatinine Ratio (No establ ref range) Glucose (70-99) mg/dL Lactic Acid (0.4-2.0) mmol/L Calcium (8.5-10.1) mg/dL Total Bilirubin (0.2-1.0) mg/dL AST (15-37) U/L ALT (16-63) U/L Alkaline Phosphatase (46-116) U/L Troponin I High Sens (<=76) pg/mL B-Natriuretic Peptide (0-100) pg/ml Total Protein (6.4-8.2) g/dL Albumin (3.4-5.0) g/dL Globulin Albumin/Globulin Ratio Influenza Type A RNA Negative (NEGATIVE) Influenza Type B RNA Negative (NEGATIVE) SARS-CoV-2 RNA (GLADYS) Negative (NEGATIVE) 07/08/21 07/08/21 Range/Units 10:21 10:21 WBC (5.0-10.0) 10^3/uL RBC (4.6-6.2) 10^6/uL Hgb (14.0-18.0) g/dL Hct (40.0-54.0) % MCV (80-100) fL MCH (27.0-34.0) pg MCHC (33.0-35.0) g/dL Plt Count (150-450) 10^3/uL Neut % (Auto) (42.2-75.2) % Lymph % (Auto) (20.5-50.1) % [place] % (Auto) (2-8) % Eos % (Auto) (1.0-3.0) % Baso % (Auto) (0.0-1.0) % D-Dimer, Quantitative (0-400) ng/mL Sodium 147 H (136-145) mmol/L Potassium 4.7 (3.5-5.1) mmol/L Chloride 109 H (98-107) mmol/L Carbon Dioxide 27 (21-32) mmol/L Anion Gap 15.7 H (7-13) mEq/L BUN 61 H (7-18) mg/dL Creatinine 2.32 H (0.70-1.30) mg/dL Est Cr Clr Drug Dosing 19.49 mL/min Estimated GFR (MDRD) 27 BUN/Creatinine Ratio 26.3 (No establ ref range) Glucose 127 H (70-99) mg/dL Lactic Acid 1.1 (0.4-2.0) mmol/L Calcium 8.7 (8.5-10.1) mg/dL Total Bilirubin 0.7 (0.2-1.0) mg/dL AST 20 (15-37) U/L ALT 19 (16-63) U/L Alkaline Phosphatase 79 (46-116) U/L Troponin I High Sens 42 (<=76) pg/mL B-Natriuretic Peptide 2830 H (0-100) pg/ml Total Protein 7.2 (6.4-8.2) g/dL Albumin 2.7 L (3.4-5.0) g/dL Globulin 4.5 Albumin/Globulin Ratio 0.60 Influenza Type A RNA (NEGATIVE) Influenza Type B RNA (NEGATIVE) SARS-CoV-2 RNA (GLADYS) (NEGATIVE) Result Diagrams: 07/08/21 10:21 07/08/21 10:21 - Problem List (1) COPD (chronic obstructive pulmonary disease) SNOMED Code(s): 57191344 ICD Code: J44.9 - CHRONIC OBSTRUCTIVE PULMONARY DISEASE, UNSPECIFIED Status: Acute Current Visit: Yes (2) CAD (coronary artery disease) SNOMED Code(s): 40589059 ICD Code: I25.10 - ATHSCL HEART DISEASE OF [place] CORONARY ARTERY W/O ANG PCTRS Status: Acute Current Visit: Yes (3) Chronic systolic CHF (congestive heart failure) SNOMED Code(s): 255341908, 864908600 ICD Code: I50.22 - CHRONIC SYSTOLIC (CONGESTIVE) HEART FAILURE Status: Acute Current Visit: Yes (4) Hypothyroidism SNOMED Code(s): 76527832 ICD Code: E03.9 - HYPOTHYROIDISM, UNSPECIFIED Status: Acute Current Visit: Yes (5) Dementia SNOMED Code(s): 52879021 ICD Code: F03.90 - UNSPECIFIED DEMENTIA WITHOUT BEHAVIORAL DISTURBANCE Status: Acute Current Visit: Yes (6) CKD (chronic kidney disease) stage 3, GFR 30-59 ml/min SNOMED Code(s): 389618148 ICD Code: N18.30 - CHRONIC KIDNEY DISEASE, STAGE 3 UNSPECIFIED Status: Acute Current Visit: No Qualifiers: Chronic kidney disease stage 3 subtype: stage 3b (GFR 30-44) Qualified Code(s): N18.32 - Chronic kidney disease, stage 3b (7) Generalized weakness SNOMED Code(s): 36563702 ICD Code: R53.1 - WEAKNESS Status: Acute Current Visit: No Problem List Initiated/Reviewed/Updated: Yes Orders Last 24hrs: Active Orders 24 hr Category Date Time Status Admission Diagnosis [ADT] Urgent ADT 07/08/21 13:23 Ordered Admission Status [Patient Status] [ADT] Urgent ADT 07/08/21 13:23 Active Oxygen Therapy [RC] PRN Care 07/08/21 14:29 Active RT Aerosol Therapy [RC] ASDIRECTED Care 07/08/21 15:27 Ordered Up With Assistance [RC] ASDIRECTED Care 07/08/21 14:29 Active VTE/DVT Education [RC] PER UNIT ROUTINE Care 07/08/21 14:29 Active Vital Signs [RC] 00,04,08,12,16,20 Care 07/08/21 14:29 Active Regular Diet [DIET] Diet 07/08/21 Dinner Active Venous Doppler Lwr Ext Bi [US] Routine Exams 07/08/21 14:44 Ordered BASIC METABOLIC PANEL,BMP [CHEM] AM Lab 07/09/21 05:11 Ordered CBC WITH AUTO DIFF [HEME] AM Lab 07/09/21 05:11 Ordered CULTURE BLOOD [BC] Stat Lab 07/08/21 10:21 Received UA RFX MELANY AND CULT IF INDIC [URIN] Urgent Lab 07/08/21 10:06 Ordered Albuterol/Ipratropium [DuoNeb 3.0-0.5 MG/3 ML] Med 07/08/21 15:27 Ordered 3 ml NEB Q2H PRN Albuterol/Ipratropium [DuoNeb 3.0-0.5 MG/3 ML] Med 07/08/21 21:00 Ordered 3 ml NEB TID Ascorbic Acid [C-500] Med 07/08/21 21:00 Ordered 500 mg PO BEDTIME Aspirin Med 07/09/21 12:00 Ordered 81 mg PO 1200 Budesonide [Pulmicort] Med 07/08/21 18:00 Ordered 0.5 mg NEB BIDRT Cetirizine HCl [All Day Allergy Relief] Med 07/09/21 12:00 Ordered 5 mg PO 1200 Clopidogrel [Plavix] Med 07/09/21 12:00 Ordered 75 mg PO 1200 Finasteride [Proscar] Med 07/09/21 12:00 Ordered 5 mg PO 1200 Fish Oil/[place]-3 Fatty Acids [Fish Oil 1,000 MG] Med 07/09/21 09:00 Ordered 1 gm PO DAILY Furosemide [Lasix] Med 07/08/21 21:00 Ordered 20 mg PO BEDTIME Furosemide [Lasix] Med 07/09/21 08:00 Ordered 60 mg PO 0800 Heparin Sodium Med 07/08/21 22:00 Active 5,000 units SUBCUT Q8HR Levothyroxine Sodium [Levothyroxine] Med 07/09/21 09:00 Ordered 88 mcg PO DAILY Ondansetron [Zofran] Med 07/08/21 14:29 Active 4 mg IVPUSH Q6H PRN Potassium Chloride [Klor-Con 10] Med 07/09/21 09:00 Ordered 10 meq PO DAILY Temazepam [Restoril] Med 07/08/21 14:29 Active 15 mg PO BEDTIME PRN atorvaSTATin Calcium [Atorvastatin Calcium] Med 07/09/21 12:00 Ordered 40 mg PO 1200 carvediloL [Coreg] Med 07/08/21 21:00 Ordered 12.5 mg PO BID lisinopriL [Prinivil] Med 07/09/21 12:00 Ordered 5 mg PO 1200 Resuscitation Status Routine Resus Stat 07/08/21 14:29 Ordered Medication Orders Albuterol/Ipratropium (Albuterol/Ipratropium 3.0-0.5 Mg/3 Ml Neb Soln) 3 ml NEB Q2H PRN PRN Reason: sob Albuterol/Ipratropium (Albuterol/Ipratropium 3.0-0.5 Mg/3 Ml Neb Soln) 3 ml NEB TID IRAJ Aspirin (Aspirin 81 Mg Tab.Chew) 81 mg PO 1200 IRAJ Budesonide (Budesonide 0.5 Mg/2 Ml Neb Susp) 0.5 mg NEB BIDRT IRAJ Carvedilol (Carvedilol 25 Mg Tab) 12.5 mg PO BID IRAJ Clopidogrel Bisulfate (Clopidogrel 75 Mg Tab) 75 mg PO 1200 IRAJ Finasteride (Finasteride 5 Mg Tab) 5 mg PO 1200 IRAJ Furosemide (Furosemide 40 Mg Tab) 60 mg PO 0800 [facility]J Furosemide (Furosemide 40 Mg Tab) 20 mg PO BEDTIME IRAJ Heparin Sodium (Porcine) (Heparin Sodium 5,000 Units/Ml Vial) 5,000 units SUBCUT Q8HR IRAJ Lisinopril (Lisinopril 10 Mg Tab) 5 mg PO 1200 [facility] Non-Formulary Medication (Ascorbic Acid [C-500]) 500 mg PO BEDTIME [facility] Non-Formulary Medication (Atorvastatin Calcium [Atorvastatin Calcium]) 40 mg PO 1200 [facility] Non-Formulary Medication (Cetirizine Hcl [All Day Allergy Relief]) 5 mg PO 1200 [facility] Non-Formulary Medication (Fish Oil/[place]-3 Fatty Acids [Fish Oil 1,000 Mg]) 1 gm PO DAILY [facility] Non-Formulary Medication (Levothyroxine Sodium [Levothyroxine]) 88 mcg PO DAILY [facility] Ondansetron HCl (Ondansetron 4 Mg/2 Ml Sdv) 4 mg IVPUSH Q6H PRN PRN Reason: Nausea/Vomiting Potassium Chloride (Potassium Chloride 10 Meq Tab.Er) 10 meq PO DAILY IRAJ Temazepam (Temazepam 15 Mg Cap) 15 mg PO BEDTIME PRN PRN Reason: Sleep Assessment/Plan Comment:: brought to ER with concern about low oxygen sats at the [facility] Acute hypoxemic respiratory failure Oxygen saturations below 90 were noted at the [place] [facility] Will supplement oxygen as needed Monitor sats goal is >88% to determine need for home oxygen Chronic systolic chf Appears compensated Minimal edema, no overt chf on CXR Cont current diuretic dose Cont coreg, Lisinopril. CAD treat with asa, Plavix, coreg, Copd Treat with pulmicort, Use duoneb scheduled and as needed Hypothyroidism Cont levothyroxine Eval for uti Check UA Dementia High risk for hospital related delirium Pt/ot/SW consult to evaluate living arrangements dvt prophylaxis sq heparin
--- NOTE | 2021-07-08 15:54 | US ---
EXAMINATION: Venous Doppler Lwr Ext Bi SEX: Male AGE: 85 years CLINICAL HISTORY: 85-year-old hypoxic male (SOB) with edematous lower extremities and elevated serum D dimer. Rule out DVT. Interpretation: Negative exam. No current evidence deep vein thrombosis either lower extremity. No sign of intraluminal echogenic thrombus and normal compressibility deep veins of both lower extremities i.e. groin, thigh, knees and calves. Satisfactory augmentation and venous waveforms demonstrated respectively in the peroneal/posterior tibial veins of both calves, popliteal veins behind both knees, and proximally in the femoral veins of both thighs and groins. No intraluminal thrombus superficial saphenous veins of either lower extremity. No popliteal (Blackwell's) cyst. No lower extremity hematoma.
[2021-07-08] MEDS: Albuterol/Ipratropium 3.0-0.5 MG/3 ML Neb Soln NEB SCH (19:01)
[2021-07-08] MEDS: Budesonide 0.5 MG/2 ML Neb Susp NEB SCH (19:01)
[2021-07-08] MEDS: Carvedilol 25 MG Tab PO SCH (22:17)
[2021-07-08] MEDS: Heparin Sodium 5,000 Units/ML Vial SUBCUT SCH (22:18)
[2021-07-08] MEDS: Furosemide 20 MG Tab PO SCH (22:18)
[2021-07-08] MEDS: Ascorbic Acid 500 MG Tab PO SCH (22:18)
[2021-07-09] MEDS: Heparin Sodium 5,000 Units/ML Vial SUBCUT SCH ×3 (06:19→21:43)
[2021-07-09 07:15] LABS: ANION GAP 14.7 mEq/L (7-13)
[2021-07-09] MEDS: Albuterol/Ipratropium 3.0-0.5 MG/3 ML Neb Soln NEB SCH ×3 (07:26→18:01)
[2021-07-09] MEDS: Budesonide 0.5 MG/2 ML Neb Susp NEB SCH ×2 (07:26→18:02)
[2021-07-09] MEDS: Potassium Chloride 10 MEQ Tab.ER PO SCH (08:17)
[2021-07-09] MEDS: Furosemide 40 MG Tab PO SCH (08:17)
[2021-07-09] MEDS: Levothyroxine 88 MCG Tab PO SCH (08:19)
--- NOTE | 2021-07-09 11:39 | PCM.PN ---
- General Info Date of Service: 07/09/21 Admission Dx/Problem (Free Text): Admission Diagnosis/Problem Admission Diagnosis/Problem Short of breath on exertion Subjective Update: has remained stable overnight did not require oxygen supplement no c/o cp, no sob, no fever Functional Status: Reports: Pain Controlled, Tolerating Diet - Review of Systems General: Reports: Weakness. Denies: Fever Pulmonary: Denies: Shortness of Breath Cardiovascular: Denies: Chest Pain, Edema Neurological: Denies: Confusion - Patient Data Vitals - Most Recent: Last Vital Signs Temp 98.2 F 07/09/21 07:41 Pulse 62 07/09/21 07:41 Resp 20 07/09/21 07:41 BP 129/50 L 07/09/21 07:41 Pulse Ox 97 07/09/21 07:41 Weight - Most Recent: 157 lb I&O - Last 24 Hours: Intake & Output 07/08/21 07/09/21 07/09/21 22:59 06:59 14:59 Intake Total 600 Output Total 300 Balance 300 Lab Results Last 24 Hours: Laboratory Results - last 24 hr 07/08/21 07/09/21 07/09/21 Range/Units 05:54 06:10 06:10 WBC 4.3 L (5.0-10.0) 10^3/uL RBC 2.87 L (4.6-6.2) 10^6/uL Hgb 8.8 L (14.0-18.0) g/dL Hct 28.7 L (40.0-54.0) % MCV 100.0 (80-100) fL MCH 30.7 (27.0-34.0) pg MCHC 30.7 L (33.0-35.0) g/dL Plt Count 155 (150-450) 10^3/uL Neut % (Auto) 42.8 (42.2-75.2) % Lymph % (Auto) 25.8 (20.5-50.1) % [place] % (Auto) 25.1 H (2-8) % Eos % (Auto) 5.1 H (1.0-3.0) % Baso % (Auto) 1.2 H (0.0-1.0) % Sodium 145 (136-145) mmol/L Potassium 4.7 (3.5-5.1) mmol/L Chloride 110 H (98-107) mmol/L Carbon Dioxide 25 (21-32) mmol/L Anion Gap 14.7 H (7-13) mEq/L BUN 61 H (7-18) mg/dL Creatinine 2.20 H (0.70-1.30) mg/dL Est Cr Clr Drug Dosing 23.75 mL/min Estimated GFR (MDRD) 29 Glucose 87 (70-99) mg/dL Calcium 8.4 L (8.5-10.1) mg/dL Urine Color Yellow (YELLOW) Urine Appearance Clear (CLEAR) Urine pH 7.0 (5.0-9.0) Ur Specific [place] 1.020 (1.005-1.030) Urine Protein 30 H (NEGATIVE) Urine Glucose (UA) Negative (NEGATIVE) Urine Ketones Negative (NEGATIVE) Urine Occult Blood Negative (NEGATIVE) Urine Nitrite Negative (NEGATIVE) Urine Bilirubin Negative (NEGATIVE) Urine Urobilinogen 0.2 (0.2-1.0) mg/dL Ur Leukocyte Esterase Negative (NEGATIVE) Urine RBC Not seen (0-5) /HPF Urine WBC 0-5 (0-5/HPF) /HPF Ur Epithelial Cells Rare (NOT SEEN) /HPF Urine Bacteria Rare (0-FEW/HPF) /HPF Urine Mucus Not seen (NOT SEEN) /LPF Red Results Last 24 Hours: Microbiology 07/08/21 10:21 Aerobic Blood Culture - Preliminary Blood - Venous - Iv Start NO GROWTH AFTER 1 DAY Anaerobic Blood Culture - Preliminary NO GROWTH AFTER 1 DAY Med Orders - Current: Current Medications Albuterol/Ipratropium (Albuterol/Ipratropium 3.0-0.5 Mg/3 Ml Neb Soln) 3 ml NEB Q2H PRN PRN Reason: sob Albuterol/Ipratropium (Albuterol/Ipratropium 3.0-0.5 Mg/3 Ml Neb Soln) 3 ml NEB TIDRT [facility] Last Admin: 07/09/21 07:26 Dose: 3 ml Documented by: Ascorbic Acid (Ascorbic Acid 500 Mg Tab) 500 mg PO BEDTIME [facility] Last Admin: 07/08/21 22:18 Dose: 500 mg Documented by: Aspirin (Aspirin 81 Mg Tab.Chew) 81 mg PO DAILY@1200 [facility] Atorvastatin Calcium (Atorvastatin 20 Mg Tab) 40 mg PO DAILY@1200 [facility] Budesonide (Budesonide 0.5 Mg/2 Ml Neb Susp) 0.5 mg NEB BIDRT [facility] Last Admin: 07/09/21 07:26 Dose: 0.5 mg Documented by: Carvedilol (Carvedilol 25 Mg Tab) 12.5 mg PO BID@1200,2100 [facility] Last Admin: 07/08/21 22:17 Dose: 12.5 mg Documented by: Clopidogrel Bisulfate (Clopidogrel 75 Mg Tab) 75 mg PO DAILY@1200 [facility] Finasteride (Finasteride 5 Mg Tab) 5 mg PO DAILY@1200 [facility] Furosemide (Furosemide 40 Mg Tab) 60 mg PO DAILY@0800 [facility] Last Admin: 07/09/21 08:17 Dose: 60 mg Documented by: Furosemide (Furosemide 20 Mg Tab) 20 mg PO BEDTIME [facility] Last Admin: 07/08/21 22:18 Dose: 20 mg Documented by: Heparin Sodium (Porcine) (Heparin Sodium 5,000 Units/Ml Vial) 5,000 units SUBCUT Q8HR [facility] Last Admin: 07/09/21 06:19 Dose: 5,000 units Documented by: Levothyroxine Sodium (Levothyroxine 88 Mcg Tab) 88 mcg PO DAILY [facility] Last Admin: 07/09/21 08:19 Dose: 88 mcg Documented by: Lisinopril (Lisinopril 5 Mg Tab) 5 mg PO DAILY@1200 [facility] Non-Formulary Medication (Cetirizine Hcl [All Day Allergy Relief]) 5 mg PO 1200 [facility] Non-Formulary Medication (Fish Oil/[place]-3 Fatty Acids [Fish Oil 1,000 Mg]) 1 gm PO DAILY [facility] Ondansetron HCl (Ondansetron 4 Mg/2 Ml Sdv) 4 mg IVPUSH Q6H PRN PRN Reason: Nausea/Vomiting Potassium Chloride (Potassium Chloride 10 Meq Tab.Er) 10 meq PO DAILY [facility] Last Admin: 07/09/21 08:17 Dose: 10 meq Documented by: Sodium Chloride (Sodium Chloride 0.9% 10 Ml Syringe) 10 ml FLUSH ASDIRECTED PRN PRN Reason: Keep Vein Open Temazepam (Temazepam 15 Mg Cap) 15 mg PO BEDTIME PRN PRN Reason: Sleep Discontinued Medications Aspirin (Aspirin 81 Mg Tab.Chew) 81 mg PO 1200 [facility] - Exam General: Alert, Oriented Neck: Supple Lungs: Normal Respiratory Effort, Decreased Breath Sounds. No: Rhonchi, Wheezing Cardiovascular: Regular Rate, Regular Rhythm GI/Abdominal Exam: Normal Bowel Sounds, Soft, Non-Tender Extremities: Pedal Edema (trace) Skin: Warm, Dry Neurological: No New Focal Deficit Psy/Mental Status: Alert, Normal Affect, Normal Mood - Patient Data Lab Results Last 24 hrs: Laboratory Results - last 24 hr 07/08/21 07/09/21 07/09/21 Range/Units 05:54 06:10 06:10 WBC 4.3 L (5.0-10.0) 10^3/uL RBC 2.87 L (4.6-6.2) 10^6/uL Hgb 8.8 L (14.0-18.0) g/dL Hct 28.7 L (40.0-54.0) % MCV 100.0 (80-100) fL MCH 30.7 (27.0-34.0) pg MCHC 30.7 L (33.0-35.0) g/dL Plt Count 155 (150-450) 10^3/uL Neut % (Auto) 42.8 (42.2-75.2) % Lymph % (Auto) 25.8 (20.5-50.1) % [place] % (Auto) 25.1 H (2-8) % Eos % (Auto) 5.1 H (1.0-3.0) % Baso % (Auto) 1.2 H (0.0-1.0) % Sodium 145 (136-145) mmol/L Potassium 4.7 (3.5-5.1) mmol/L Chloride 110 H (98-107) mmol/L Carbon Dioxide 25 (21-32) mmol/L Anion Gap 14.7 H (7-13) mEq/L BUN 61 H (7-18) mg/dL Creatinine 2.20 H (0.70-1.30) mg/dL Est Cr Clr Drug Dosing 23.75 mL/min Estimated GFR (MDRD) 29 Glucose 87 (70-99) mg/dL Calcium 8.4 L (8.5-10.1) mg/dL Urine Color Yellow (YELLOW) Urine Appearance Clear (CLEAR) Urine pH 7.0 (5.0-9.0) Ur Specific [place] 1.020 (1.005-1.030) Urine Protein 30 H (NEGATIVE) Urine Glucose (UA) Negative (NEGATIVE) Urine Ketones Negative (NEGATIVE) Urine Occult Blood Negative (NEGATIVE) Urine Nitrite Negative (NEGATIVE) Urine Bilirubin Negative (NEGATIVE) Urine Urobilinogen 0.2 (0.2-1.0) mg/dL Ur Leukocyte Esterase Negative (NEGATIVE) Urine RBC Not seen (0-5) /HPF Urine WBC 0-5 (0-5/HPF) /HPF Ur Epithelial Cells Rare (NOT SEEN) /HPF Urine Bacteria Rare (0-FEW/HPF) /HPF Urine Mucus Not seen (NOT SEEN) /LPF Result Diagrams: 07/09/21 06:10 07/09/21 06:10 Red Results Last 24 hrs: Microbiology 07/08/21 10:21 Aerobic Blood Culture - Preliminary Blood - Venous - Iv Start NO GROWTH AFTER 1 DAY Anaerobic Blood Culture - Preliminary NO GROWTH AFTER 1 DAY Sepsis Event Note - Evaluation Sepsis Screening Result: No Definite Risk - Focused Exam Vital Signs: Vital Signs Temp Pulse Resp BP Pulse Ox 07/09/21 07:41 98.2 F 62 20 129/50 L 97 07/09/21 04:00 98.9 F 61 20 133/41 L 94 L 07/09/21 00:00 99.5 F 61 20 130/48 L 94 L - Problem List & Annotations (1) COPD (chronic obstructive pulmonary disease) SNOMED Code(s): 40567396 Code(s): J44.9 - CHRONIC OBSTRUCTIVE PULMONARY DISEASE, UNSPECIFIED Status: Acute Current Visit: Yes (2) CAD (coronary artery disease) SNOMED Code(s): 20671253 Code(s): I25.10 - ATHSCL HEART DISEASE OF [place] CORONARY ARTERY W/O ANG PCTRS Status: Acute Current Visit: Yes (3) Chronic systolic CHF (congestive heart failure) SNOMED Code(s): 450573797, 955154195 Code(s): I50.22 - CHRONIC SYSTOLIC (CONGESTIVE) HEART FAILURE Status: Acute Current Visit: Yes (4) Hypothyroidism SNOMED Code(s): 12685534 Code(s): E03.9 - HYPOTHYROIDISM, UNSPECIFIED Status: Acute Current Visit: Yes (5) Dementia SNOMED Code(s): 39436391 Code(s): F03.90 - UNSPECIFIED DEMENTIA WITHOUT BEHAVIORAL DISTURBANCE Status: Acute Current Visit: Yes (6) CKD (chronic kidney disease) stage 3, GFR 30-59 ml/min SNOMED Code(s): 992700786 Code(s): N18.30 - CHRONIC KIDNEY DISEASE, STAGE 3 UNSPECIFIED Status: Acute Current Visit: No Qualifiers: Chronic kidney disease stage 3 subtype: stage 3b (GFR 30-44) Qualified Code(s): N18.32 - Chronic kidney disease, stage 3b (7) Generalized weakness SNOMED Code(s): 60536213 Code(s): R53.1 - WEAKNESS Status: Acute Current Visit: No - Problem List Review Problem List Initiated/Reviewed/Updated: Yes - My Orders Last 24 Hours: My Active Orders 07/08/21 14:29 Oxygen Therapy [RC] PRN Up With Assistance [RC] ASDIRECTED VTE/DVT Education [RC] 08,20 Vital Signs [RC] 00,04,08,12,16,20 Ondansetron [Zofran] 4 mg IVPUSH Q6H PRN Temazepam [Restoril] 15 mg PO BEDTIME PRN Resuscitation Status Routine 07/08/21 15:27 RT Aerosol Therapy [RC] 07,13,18 Albuterol/Ipratropium [DuoNeb 3.0-0.5 MG/3 ML] 3 ml NEB Q2H PRN 07/08/21 15:46 Sodium Chloride 0.9% [Saline Flush] 10 ml FLUSH ASDIRECTED PRN Saline Lock Insert [OM.PC] Routine 07/08/21 Dinner Regular Diet [DIET] 07/08/21 18:00 Albuterol/Ipratropium [DuoNeb 3.0-0.5 MG/3 ML] 3 ml NEB TIDRT Budesonide [Pulmicort] 0.5 mg NEB BIDRT 07/08/21 21:00 Ascorbic Acid [Vitamin C] 500 mg PO BEDTIME Furosemide [Lasix] 20 mg PO BEDTIME carvediloL [Coreg] 12.5 mg PO BID@1200,2100 07/08/21 22:00 Heparin Sodium 5,000 units SUBCUT Q8HR 07/09/21 08:00 Furosemide [Lasix] 60 mg PO DAILY@0800 07/09/21 08:44 Consult to Occupational Therapy [OT Evaluation and Treatment] [CONS] Routine PT Evaluation and Treatment [CONS] Routine 07/09/21 09:00 Fish Oil/[place]-3 Fatty Acids [Fish Oil 1,000 MG] 1 gm PO DAILY Levothyroxine [Synthroid] 88 mcg PO DAILY Potassium Chloride [Klor-Con 10] 10 meq PO DAILY 07/09/21 12:00 Aspirin 81 mg PO DAILY@1200 Cetirizine HCl [All Day Allergy Relief] 5 mg PO 1200 Clopidogrel [Plavix] 75 mg PO DAILY@1200 Finasteride [Proscar] 5 mg PO DAILY@1200 atorvaSTATin [Lipitor] 40 mg PO DAILY@1200 lisinopriL [Prinivil] 5 mg PO DAILY@1200 - Plan Plan:: brought to ER with concern about low oxygen sats at the [facility] Acute hypoxemic respiratory failure Oxygen saturations below 90 were noted at the [facility] sats have been good last night will get him up and check with activity today Will supplement oxygen as needed Monitor sats goal is >88% to determine need for home oxygen Chronic systolic chf Appears compensated Minimal edema, no overt chf on CXR Cont current diuretic dose Cont coreg, Lisinopril. CAD treat with asa, Plavix, coreg, Copd Treat with pulmicort, Use duoneb scheduled and as needed Hypothyroidism Cont levothyroxine Eval for uti negative UA Dementia High risk for hospital related delirium Pt/ot/SW consult to evaluate living arrangements it appears he will need NH or swing bed dvt prophylaxis sq heparin
[2021-07-09] MEDS ORDERED: [UNRECOGNIZED DRUG - REMARK] PO SCH (12:00)
[2021-07-09] MEDS ORDERED: Aspirin 81 MG Tab.Chew PO SCH (12:00)
[2021-07-09] MEDS: Finasteride 5 MG Tab PO SCH (13:53)
[2021-07-09] MEDS: Clopidogrel 75 MG Tab PO SCH (13:53)
[2021-07-09] MEDS: atorvaSTATin 20 MG Tab PO SCH (13:53)
[2021-07-09] MEDS: Lisinopril 5 MG Tab PO SCH (13:53)
[2021-07-09] MEDS: Aspirin 81 MG Tab.Chew PO SCH (13:54)
[2021-07-09] MEDS: Carvedilol 25 MG Tab PO SCH ×2 (13:54→21:32)
[2021-07-09] MEDS: Furosemide 20 MG Tab PO SCH (21:32)
[2021-07-09] MEDS: Ascorbic Acid 500 MG Tab PO SCH (21:32)
[2021-07-10] MEDS: Heparin Sodium 5,000 Units/ML Vial SUBCUT SCH ×3 (05:33→21:45)
[2021-07-10] MEDS: Budesonide 0.5 MG/2 ML Neb Susp NEB SCH ×2 (07:11→18:12)
[2021-07-10] MEDS: Albuterol/Ipratropium 3.0-0.5 MG/3 ML Neb Soln NEB SCH ×3 (07:11→18:12)
[2021-07-10] MEDS: Levothyroxine 88 MCG Tab PO SCH (08:32)
[2021-07-10] MEDS: Potassium Chloride 10 MEQ Tab.ER PO SCH (08:32)
[2021-07-10] MEDS: Furosemide 40 MG Tab PO SCH (08:33)
[2021-07-10] MEDS: Lisinopril 5 MG Tab PO SCH (12:10)
[2021-07-10] MEDS: Clopidogrel 75 MG Tab PO SCH (12:10)
[2021-07-10] MEDS: Finasteride 5 MG Tab PO SCH (12:10)
[2021-07-10] MEDS: Carvedilol 25 MG Tab PO SCH ×2 (12:11→21:44)
[2021-07-10] MEDS: atorvaSTATin 20 MG Tab PO SCH (12:14)
[2021-07-10] MEDS: Aspirin 81 MG Tab.Chew PO SCH (12:15)
[2021-07-10] MEDS: Acetaminophen 500 MG Tab PO SCH (15:55)
[2021-07-10 17:53] LABS: ANION GAP 14.1 mEq/L (7-13)
--- NOTE | 2021-07-10 22:32 | PCM.PN ---
- General Info Date of Service: 07/10/21 - Patient Data Vitals - Most Recent: Last Vital Signs Temp 99.5 F 07/10/21 20:00 Pulse 83 07/10/21 21:44 Resp 22 H 07/10/21 20:00 BP 107/44 L 07/10/21 21:44 Pulse Ox 94 L 07/10/21 20:00 Weight - Most Recent: 157 lb 4.8 oz I&O - Last 24 Hours: Intake & Output 07/10/21 07/10/21 07/10/21 06:59 14:59 22:59 Intake Total 200 1920 460 Output Total 375 Balance -175 1920 460 Lab Results Last 24 Hours: Laboratory Results - last 24 hr 07/10/21 07/10/21 07/10/21 Range/Units 17:30 17:30 17:30 WBC 5.3 (5.0-10.0) 10^3/uL RBC 2.65 L (4.6-6.2) 10^6/uL Hgb 8.2 L (14.0-18.0) g/dL Hct 26.5 L (40.0-54.0) % MCV 100.0 (80-100) fL MCH 30.9 (27.0-34.0) pg MCHC 30.9 L (33.0-35.0) g/dL Plt Count 157 (150-450) 10^3/uL Neut % (Auto) 51.5 (42.2-75.2) % Lymph % (Auto) 22.5 (20.5-50.1) % [place] % (Auto) 20.2 H (2-8) % Eos % (Auto) 4.7 H (1.0-3.0) % Baso % (Auto) 1.1 H (0.0-1.0) % Sodium (136-145) mmol/L Potassium (3.5-5.1) mmol/L Chloride (98-107) mmol/L Carbon Dioxide (21-32) mmol/L Anion Gap (7-13) mEq/L BUN (7-18) mg/dL Creatinine (0.70-1.30) mg/dL Est Cr Clr Drug Dosing mL/min Estimated GFR (MDRD) BUN/Creatinine Ratio (No establ ref range) Glucose (70-99) mg/dL Calcium (8.5-10.1) mg/dL Phosphorus (2.6-4.7) mg/dL Magnesium 2.1 (1.8-2.4) mg/dL Iron 21 L (65-175) ug/dL TIBC 159 L (250-450) ug/dL % Saturation 13.2 L (20.0-50.0) % Ferritin 291 (26-388) mg/mL C-Reactive Protein (0.0-0.9) mg/dL Albumin (3.4-5.0) g/dL Vitamin B12 948 (193-986) pg/mL Folate 14.3 (8.6-58.9) ng/mL TSH, Ultra Sensitive 1.47 (0.36-3.74) uIU/mL 07/10/21 Range/Units 17:30 WBC (5.0-10.0) 10^3/uL RBC (4.6-6.2) 10^6/uL Hgb (14.0-18.0) g/dL Hct (40.0-54.0) % MCV (80-100) fL MCH (27.0-34.0) pg MCHC (33.0-35.0) g/dL Plt Count (150-450) 10^3/uL Neut % (Auto) (42.2-75.2) % Lymph % (Auto) (20.5-50.1) % [place] % (Auto) (2-8) % Eos % (Auto) (1.0-3.0) % Baso % (Auto) (0.0-1.0) % Sodium 140 (136-145) mmol/L Potassium 5.1 (3.5-5.1) mmol/L Chloride 107 (98-107) mmol/L Carbon Dioxide 24 (21-32) mmol/L Anion Gap 14.1 H (7-13) mEq/L BUN 67 H (7-18) mg/dL Creatinine 2.34 H (0.70-1.30) mg/dL Est Cr Clr Drug Dosing 22.33 mL/min Estimated GFR (MDRD) 27 BUN/Creatinine Ratio 28.6 (No establ ref range) Glucose 156 H (70-99) mg/dL Calcium 8.1 L (8.5-10.1) mg/dL Phosphorus 3.6 (2.6-4.7) mg/dL Magnesium (1.8-2.4) mg/dL Iron (65-175) ug/dL TIBC (250-450) ug/dL % Saturation (20.0-50.0) % Ferritin (26-388) mg/mL C-Reactive Protein 4.9 H (0.0-0.9) mg/dL Albumin 2.2 L (3.4-5.0) g/dL Vitamin B12 (193-986) pg/mL Folate (8.6-58.9) ng/mL TSH, Ultra Sensitive (0.36-3.74) uIU/mL Red Results Last 24 Hours: Microbiology 07/08/21 10:21 Aerobic Blood Culture - Preliminary Blood - Venous - Iv Start NO GROWTH AFTER 2 DAYS Anaerobic Blood Culture - Preliminary NO GROWTH AFTER 2 DAYS Med Orders - Current: Current Medications Acetaminophen (Acetaminophen 500 Mg Tab) 500 mg PO Q8H [facility] Last Admin: 07/10/21 15:55 Dose: 500 mg Documented by: Albuterol/Ipratropium (Albuterol/Ipratropium 3.0-0.5 Mg/3 Ml Neb Soln) 3 ml NEB Q2H PRN PRN Reason: sob Albuterol/Ipratropium (Albuterol/Ipratropium 3.0-0.5 Mg/3 Ml Neb Soln) 3 ml NEB TIDRT [facility] Last Admin: 07/10/21 18:12 Dose: 3 ml Documented by: Aspirin (Aspirin 81 Mg Tab.Chew) 81 mg PO DAILY@1200 [facility] Last Admin: 07/10/21 12:15 Dose: 81 mg Documented by: Atorvastatin Calcium (Atorvastatin 20 Mg Tab) 40 mg PO DAILY@1200 [facility] Last Admin: 07/10/21 12:14 Dose: 40 mg Documented by: Budesonide (Budesonide 0.5 Mg/2 Ml Neb Susp) 0.5 mg NEB BIDRT [facility] Last Admin: 07/10/21 18:12 Dose: 0.5 mg Documented by: Carvedilol (Carvedilol 25 Mg Tab) 12.5 mg PO BID@1200,2100 [facility] Last Admin: 07/10/21 21:44 Dose: 12.5 mg Documented by: Clopidogrel Bisulfate (Clopidogrel 75 Mg Tab) 75 mg PO DAILY@1200 [facility] Last Admin: 07/10/21 12:10 Dose: 75 mg Documented by: Finasteride (Finasteride 5 Mg Tab) 5 mg PO DAILY@1200 [facility] Last Admin: 07/10/21 12:10 Dose: 5 mg Documented by: Furosemide (Furosemide 40 Mg Tab) 60 mg PO DAILY@0800 [facility] Last Admin: 07/10/21 08:33 Dose: 60 mg Documented by: Heparin Sodium (Porcine) (Heparin Sodium 5,000 Units/Ml Vial) 5,000 units SUBCUT Q8HR [facility] Last Admin: 07/10/21 21:45 Dose: 5,000 units Documented by: Levothyroxine Sodium (Levothyroxine 88 Mcg Tab) 88 mcg PO DAILY [facility] Last Admin: 07/10/21 08:32 Dose: 88 mcg Documented by: Lisinopril (Lisinopril 5 Mg Tab) 5 mg PO DAILY@1200 [facility] Last Admin: 07/10/21 12:10 Dose: 5 mg Documented by: Non-Formulary Medication (Cetirizine Hcl [All Day Allergy Relief]) 5 mg PO 1200 [facility] Ondansetron HCl (Ondansetron 4 Mg/2 Ml Sdv) 4 mg IVPUSH Q6H PRN PRN Reason: Nausea/Vomiting Potassium Chloride (Potassium Chloride 10 Meq Tab.Er) 10 meq PO DAILY [facility] Last Admin: 07/10/21 08:32 Dose: 10 meq Documented by: Sodium Chloride (Sodium Chloride 0.9% 10 Ml Syringe) 10 ml FLUSH ASDIRECTED PRN PRN Reason: Keep Vein Open Discontinued Medications Ascorbic Acid (Ascorbic Acid 500 Mg Tab) 500 mg PO BEDTIME [facility] Last Admin: 07/09/21 21:32 Dose: 500 mg Documented by: Aspirin (Aspirin 81 Mg Tab.Chew) 81 mg PO 1200 [facility] Furosemide (Furosemide 20 Mg Tab) 20 mg PO BEDTIME [facility] Last Admin: 07/09/21 21:32 Dose: 20 mg Documented by: Non-Formulary Medication (Fish Oil/[place]-3 Fatty Acids [Fish Oil 1,000 Mg]) 1 gm PO DAILY [facility] Temazepam (Temazepam 15 Mg Cap) 15 mg PO BEDTIME PRN PRN Reason: Sleep - Patient Data Lab Results Last 24 hrs: Laboratory Results - last 24 hr 07/10/21 07/10/21 07/10/21 Range/Units 17:30 17:30 17:30 WBC 5.3 (5.0-10.0) 10^3/uL RBC 2.65 L (4.6-6.2) 10^6/uL Hgb 8.2 L (14.0-18.0) g/dL Hct 26.5 L (40.0-54.0) % MCV 100.0 (80-100) fL MCH 30.9 (27.0-34.0) pg MCHC 30.9 L (33.0-35.0) g/dL Plt Count 157 (150-450) 10^3/uL Neut % (Auto) 51.5 (42.2-75.2) % Lymph % (Auto) 22.5 (20.5-50.1) % [place] % (Auto) 20.2 H (2-8) % Eos % (Auto) 4.7 H (1.0-3.0) % Baso % (Auto) 1.1 H (0.0-1.0) % Sodium (136-145) mmol/L Potassium (3.5-5.1) mmol/L Chloride (98-107) mmol/L Carbon Dioxide (21-32) mmol/L Anion Gap (7-13) mEq/L BUN (7-18) mg/dL Creatinine (0.70-1.30) mg/dL Est Cr Clr Drug Dosing mL/min Estimated GFR (MDRD) BUN/Creatinine Ratio (No establ ref range) Glucose (70-99) mg/dL Calcium (8.5-10.1) mg/dL Phosphorus (2.6-4.7) mg/dL Magnesium 2.1 (1.8-2.4) mg/dL Iron 21 L (65-175) ug/dL TIBC 159 L (250-450) ug/dL % Saturation 13.2 L (20.0-50.0) % Ferritin 291 (26-388) mg/mL C-Reactive Protein (0.0-0.9) mg/dL Albumin (3.4-5.0) g/dL Vitamin B12 948 (193-986) pg/mL Folate 14.3 (8.6-58.9) ng/mL TSH, Ultra Sensitive 1.47 (0.36-3.74) uIU/mL 07/10/21 Range/Units 17:30 WBC (5.0-10.0) 10^3/uL RBC (4.6-6.2) 10^6/uL Hgb (14.0-18.0) g/dL Hct (40.0-54.0) % MCV (80-100) fL MCH (27.0-34.0) pg MCHC (33.0-35.0) g/dL Plt Count (150-450) 10^3/uL Neut % (Auto) (42.2-75.2) % Lymph % (Auto) (20.5-50.1) % [place] % (Auto) (2-8) % Eos % (Auto) (1.0-3.0) % Baso % (Auto) (0.0-1.0) % Sodium 140 (136-145) mmol/L Potassium 5.1 (3.5-5.1) mmol/L Chloride 107 (98-107) mmol/L Carbon Dioxide 24 (21-32) mmol/L Anion Gap 14.1 H (7-13) mEq/L BUN 67 H (7-18) mg/dL Creatinine 2.34 H (0.70-1.30) mg/dL Est Cr Clr Drug Dosing 22.33 mL/min Estimated GFR (MDRD) 27 BUN/Creatinine Ratio 28.6 (No establ ref range) Glucose 156 H (70-99) mg/dL Calcium 8.1 L (8.5-10.1) mg/dL Phosphorus 3.6 (2.6-4.7) mg/dL Magnesium (1.8-2.4) mg/dL Iron (65-175) ug/dL TIBC (250-450) ug/dL % Saturation (20.0-50.0) % Ferritin (26-388) mg/mL C-Reactive Protein 4.9 H (0.0-0.9) mg/dL Albumin 2.2 L (3.4-5.0) g/dL Vitamin B12 (193-986) pg/mL Folate (8.6-58.9) ng/mL TSH, Ultra Sensitive (0.36-3.74) uIU/mL Result Diagrams: 07/11/21 05:15 07/11/21 05:15 Red Results Last 24 hrs: Microbiology 07/08/21 10:21 Aerobic Blood Culture - Preliminary Blood - Venous - Iv Start NO GROWTH AFTER 2 DAYS Anaerobic Blood Culture - Preliminary NO GROWTH AFTER 2 DAYS Sepsis Event Note - Evaluation Sepsis Screening Result: No Definite Risk - Focused Exam Vital Signs: Vital Signs Temp Pulse Pulse Resp BP BP Pulse Ox 07/10/21 21:44 83 107/44 L 07/10/21 20:00 99.5 F 67 22 H 107/44 L 94 L 07/10/21 16:00 99 F 63 24 H 128/53 L 94 L 07/10/21 13:50 07/10/21 12:11 69 143/52 H 07/10/21 12:10 143/52 H 07/10/21 12:00 97.8 F 69 24 H 143/52 H 97 Pulse Ox 07/10/21 21:44 07/10/21 20:00 07/10/21 16:00 07/10/21 13:50 93 L 07/10/21 12:11 07/10/21 12:10 07/10/21 12:00 - Problem List Review Problem List Initiated/Reviewed/Updated: Yes - My Orders Last 24 Hours: My Active Orders 07/10/21 15:38 Overnight Pulse Oximetry [RC] BEDTIME 07/10/21 16:00 Acetaminophen [Tylenol Extra Strength] 500 mg PO Q8H - Plan Plan:: HOSPITALIST PROGRESS NOTE SUBJECTIVE: Dyspnea on mild-moderate exertion; denies chest pain. A 4-point ROS of 7 systems otherwise negative for new or major findings. OBJECTIVE: Vitals viewed in chart. Grade 3/6 murmur in aortic region. Lungs clear to auscultation. Alert, oriented to place and person. A 4-point physical exam of 7 systems otherwise negative for new or major findings. ASSESSMENT / PLAN: Alan was admitted on 07/08 for hypoxia (reported as "<90% O2 sat") noted at [facility] during routine visit. He had also reported frontal headache and dyspnea at that time. Concern for acute hypoxic resp failure. However, O2 sat remained in acceptable range on room air since hospitalization; ?error in O2 sat monitoring at [facility]. Possibility of PE since d-dimer was 4x ULN; however, no chest pain, tachycardia or DVT on BLE ultrasound. General weakness / deconditioning. He mentioned his main symptom of concern as several weeks to months of progressive, now severe, general weakness. This is likely multifactorial; see below. OT/PT are following him; might need short-term SNF placement. Symptomatic severe anemia of iron deficiency. FOBT ordered; waiting to be collected. Chronic systolic heart failure NYHA class 2-3. LVEF 20-25% in 12/2020. Home lasix to continue. CAD. Severe, multivessel disease noted on angiogram 12/27/20; medication-based management was advised. Dual antiplatelets on regimen. CKD stage 4. Nephro referral outpatient can be considered. COPD. Budesonide neb BID and duoneb TID used while inpatient. Cognitive impairment. Family mentioned chronic short-term memory difficulty on discussion on 07/10; outpatient detailed eval can be advised. DVT px: heparin subcu Code: DNR Depending on ongoing OT/PT assessment, might need short-term SNF placement.
[2021-07-11] MEDS: Acetaminophen 500 MG Tab PO SCH ×3 (00:48→16:05)
[2021-07-11] MEDS ORDERED: Iron Sucrose Complex 100 MG/5 ML SDV IVPUSH ONE ×2 (03:01→12:30)
[2021-07-11] MEDS: Heparin Sodium 5,000 Units/ML Vial SUBCUT SCH ×2 (05:15→14:20)
[2021-07-11 06:37] LABS: ANION GAP 11.8 mEq/L (7-13)
[2021-07-11] MEDS: Budesonide 0.5 MG/2 ML Neb Susp NEB SCH (07:26)
[2021-07-11] MEDS: Albuterol/Ipratropium 3.0-0.5 MG/3 ML Neb Soln NEB SCH ×2 (07:26→13:21)
[2021-07-11] MEDS: Levothyroxine 88 MCG Tab PO SCH (09:02)
[2021-07-11] MEDS: Furosemide 40 MG Tab PO SCH ×2 (09:02→21:31)
[2021-07-11] MEDS: Sodium Chloride 0.9% 10 ML Syringe FLUSH PRN (09:07)
[2021-07-11] MEDS: atorvaSTATin 20 MG Tab PO SCH (12:52)
[2021-07-11] MEDS: Finasteride 5 MG Tab PO SCH (12:53)
[2021-07-11] MEDS: Clopidogrel 75 MG Tab PO SCH (12:53)
[2021-07-11] MEDS: Carvedilol 25 MG Tab PO SCH ×2 (12:54→21:32)
[2021-07-11] MEDS: Aspirin 81 MG Tab.Chew PO SCH (12:54)
[2021-07-11] MEDS: Lisinopril 5 MG Tab PO SCH (12:55)
--- NOTE | 2021-07-11 17:24 | PCM.PN ---
- General Info Date of Service: 07/11/21 - Patient Data Vitals - Most Recent: Last Vital Signs Temp 98.7 F 07/11/21 16:00 Pulse 59 L 07/11/21 16:00 Resp 28 H 07/11/21 16:00 BP 151/64 H 07/11/21 16:00 Pulse Ox 95 07/11/21 14:00 Weight - Most Recent: 158 lb 11.2 oz I&O - Last 24 Hours: Intake & Output 07/11/21 07/11/21 07/11/21 06:59 14:59 22:59 Intake Total 200 1374 Balance 200 1374 Lab Results Last 24 Hours: Laboratory Results - last 24 hr 07/10/21 07/10/21 07/10/21 Range/Units 17:30 17:30 17:30 WBC 5.3 (5.0-10.0) 10^3/uL RBC 2.65 L (4.6-6.2) 10^6/uL Hgb 8.2 L (14.0-18.0) g/dL Hct 26.5 L (40.0-54.0) % MCV 100.0 (80-100) fL MCH 30.9 (27.0-34.0) pg MCHC 30.9 L (33.0-35.0) g/dL Plt Count 157 (150-450) 10^3/uL Neut % (Auto) 51.5 (42.2-75.2) % Lymph % (Auto) 22.5 (20.5-50.1) % Bath % (Auto) 20.2 H (2-8) % Eos % (Auto) 4.7 H (1.0-3.0) % Baso % (Auto) 1.1 H (0.0-1.0) % Sodium (136-145) mmol/L Potassium (3.5-5.1) mmol/L Chloride (98-107) mmol/L Carbon Dioxide (21-32) mmol/L Anion Gap (7-13) mEq/L BUN (7-18) mg/dL Creatinine (0.70-1.30) mg/dL Est Cr Clr Drug Dosing mL/min Estimated GFR (MDRD) BUN/Creatinine Ratio (No establ ref range) Glucose (70-99) mg/dL Calcium (8.5-10.1) mg/dL Phosphorus (2.6-4.7) mg/dL Magnesium 2.1 (1.8-2.4) mg/dL Iron 21 L (65-175) ug/dL TIBC 159 L (250-450) ug/dL % Saturation 13.2 L (20.0-50.0) % Ferritin 291 (26-388) mg/mL C-Reactive Protein (0.0-0.9) mg/dL Albumin (3.4-5.0) g/dL Vitamin B12 948 (193-986) pg/mL Folate 14.3 (8.6-58.9) ng/mL TSH, Ultra Sensitive 1.47 (0.36-3.74) uIU/mL Blood Type Gel Antibody Screen Crossmatch 07/10/21 07/11/21 07/11/21 Range/Units 17:30 05:15 05:15 WBC (5.0-10.0) 10^3/uL RBC (4.6-6.2) 10^6/uL Hgb 7.8 L (14.0-18.0) g/dL Hct (40.0-54.0) % MCV (80-100) fL MCH (27.0-34.0) pg MCHC (33.0-35.0) g/dL Plt Count (150-450) 10^3/uL Neut % (Auto) (42.2-75.2) % Lymph % (Auto) (20.5-50.1) % Bath % (Auto) (2-8) % Eos % (Auto) (1.0-3.0) % Baso % (Auto) (0.0-1.0) % Sodium 140 141 (136-145) mmol/L Potassium 5.1 4.8 (3.5-5.1) mmol/L Chloride 107 108 H (98-107) mmol/L Carbon Dioxide 24 26 (21-32) mmol/L Anion Gap 14.1 H 11.8 (7-13) mEq/L BUN 67 H 70 H (7-18) mg/dL Creatinine 2.34 H 2.16 H (0.70-1.30) mg/dL Est Cr Clr Drug Dosing 22.33 24.19 mL/min Estimated GFR (MDRD) 27 29 BUN/Creatinine Ratio 28.6 (No establ ref range) Glucose 156 H 128 H (70-99) mg/dL Calcium 8.1 L 7.9 L (8.5-10.1) mg/dL Phosphorus 3.6 (2.6-4.7) mg/dL Magnesium (1.8-2.4) mg/dL Iron (65-175) ug/dL TIBC (250-450) ug/dL % Saturation (20.0-50.0) % Ferritin (26-388) mg/mL C-Reactive Protein 4.9 H (0.0-0.9) mg/dL Albumin 2.2 L (3.4-5.0) g/dL Vitamin B12 (193-986) pg/mL Folate (8.6-58.9) ng/mL TSH, Ultra Sensitive (0.36-3.74) uIU/mL Blood Type Gel Antibody Screen Crossmatch 07/11/21 Range/Units 05:15 WBC (5.0-10.0) 10^3/uL RBC (4.6-6.2) 10^6/uL Hgb (14.0-18.0) g/dL Hct (40.0-54.0) % MCV (80-100) fL MCH (27.0-34.0) pg MCHC (33.0-35.0) g/dL Plt Count (150-450) 10^3/uL Neut % (Auto) (42.2-75.2) % Lymph % (Auto) (20.5-50.1) % Bath % (Auto) (2-8) % Eos % (Auto) (1.0-3.0) % Baso % (Auto) (0.0-1.0) % Sodium (136-145) mmol/L Potassium (3.5-5.1) mmol/L Chloride (98-107) mmol/L Carbon Dioxide (21-32) mmol/L Anion Gap (7-13) mEq/L BUN (7-18) mg/dL Creatinine (0.70-1.30) mg/dL Est Cr Clr Drug Dosing mL/min Estimated GFR (MDRD) BUN/Creatinine Ratio (No establ ref range) Glucose (70-99) mg/dL Calcium (8.5-10.1) mg/dL Phosphorus (2.6-4.7) mg/dL Magnesium (1.8-2.4) mg/dL Iron (65-175) ug/dL TIBC (250-450) ug/dL % Saturation (20.0-50.0) % Ferritin (26-388) mg/mL C-Reactive Protein (0.0-0.9) mg/dL Albumin (3.4-5.0) g/dL Vitamin B12 (193-986) pg/mL Folate (8.6-58.9) ng/mL TSH, Ultra Sensitive (0.36-3.74) uIU/mL Blood Type A POSITIVE Gel Antibody Screen Negative Crossmatch See Detail Red Results Last 24 Hours: Microbiology 07/08/21 10:21 Aerobic Blood Culture - Preliminary Blood - Venous - Iv Start NO GROWTH AFTER 3 DAYS Anaerobic Blood Culture - Preliminary NO GROWTH AFTER 3 DAYS Med Orders - Current: Current Medications Acetaminophen (Acetaminophen 500 Mg Tab) 500 mg PO Q8H [facility] Last Admin: 07/11/21 16:05 Dose: 500 mg Documented by: Albuterol/Ipratropium (Albuterol/Ipratropium 3.0-0.5 Mg/3 Ml Neb Soln) 3 ml NEB Q2H PRN PRN Reason: sob Albuterol/Ipratropium (Albuterol/Ipratropium 3.0-0.5 Mg/3 Ml Neb Soln) 3 ml NEB TIDRT [facility] Last Admin: 07/11/21 13:21 Dose: 3 ml Documented by: Aspirin (Aspirin 81 Mg Tab.Chew) 81 mg PO DAILY@1200 [facility] Last Admin: 07/11/21 12:54 Dose: 81 mg Documented by: Atorvastatin Calcium (Atorvastatin 20 Mg Tab) 40 mg PO DAILY@1200 [facility] Last Admin: 07/11/21 12:52 Dose: 40 mg Documented by: Budesonide (Budesonide 0.5 Mg/2 Ml Neb Susp) 0.5 mg NEB BIDRT [facility] Last Admin: 07/11/21 07:26 Dose: 0.5 mg Documented by: Carvedilol (Carvedilol 25 Mg Tab) 12.5 mg PO BID@1200,2100 [facility] Last Admin: 07/11/21 12:54 Dose: 12.5 mg Documented by: Clopidogrel Bisulfate (Clopidogrel 75 Mg Tab) 75 mg PO DAILY@1200 [facility] Last Admin: 07/11/21 12:53 Dose: 75 mg Documented by: Finasteride (Finasteride 5 Mg Tab) 5 mg PO DAILY@1200 [facility] Last Admin: 07/11/21 12:53 Dose: 5 mg Documented by: Furosemide (Furosemide 40 Mg Tab) 60 mg PO DAILY@0800 [facility] Last Admin: 07/11/21 09:02 Dose: Not Given Documented by: Levothyroxine Sodium (Levothyroxine 88 Mcg Tab) 88 mcg PO DAILY [facility] Last Admin: 07/11/21 09:02 Dose: 88 mcg Documented by: Lisinopril (Lisinopril 5 Mg Tab) 5 mg PO DAILY@1200 [facility] Last Admin: 07/11/21 12:55 Dose: 5 mg Documented by: Non-Formulary Medication (Cetirizine Hcl [All Day Allergy Relief]) 5 mg PO 1200 [facility] Ondansetron HCl (Ondansetron 4 Mg/2 Ml Sdv) 4 mg IVPUSH Q6H PRN PRN Reason: Nausea/Vomiting Sodium Chloride (Sodium Chloride 0.9% 10 Ml Syringe) 10 ml FLUSH ASDIRECTED PRN PRN Reason: Keep Vein Open Discontinued Medications Ascorbic Acid (Ascorbic Acid 500 Mg Tab) 500 mg PO BEDTIME [facility] Last Admin: 07/09/21 21:32 Dose: 500 mg Documented by: Aspirin (Aspirin 81 Mg Tab.Chew) 81 mg PO 1200 [facility] Furosemide (Furosemide 20 Mg Tab) 20 mg PO BEDTIME [facility] Last Admin: 07/09/21 21:32 Dose: 20 mg Documented by: Heparin Sodium (Porcine) (Heparin Sodium 5,000 Units/Ml Vial) 5,000 units SUBCUT Q8HR [facility] Last Admin: 07/11/21 14:20 Dose: 5,000 units Documented by: Iron Sucrose (Iron Sucrose Complex 100 Mg/5 Ml Sdv) 200 mg IVPUSH ONETIME ONE Stop: 07/11/21 03:02 Iron Sucrose (Iron Sucrose Complex 100 Mg/5 Ml Sdv) 200 mg IVPUSH ONETIME ONE Stop: 07/11/21 12:31 Non-Formulary Medication (Fish Oil/[place]-3 Fatty Acids [Fish Oil 1,000 Mg]) 1 gm PO DAILY [facility] Potassium Chloride (Potassium Chloride 10 Meq Tab.Er) 10 meq PO DAILY [facility] Last Admin: 07/10/21 08:32 Dose: 10 meq Documented by: Temazepam (Temazepam 15 Mg Cap) 15 mg PO BEDTIME PRN PRN Reason: Sleep - Patient Data Lab Results Last 24 hrs: Laboratory Results - last 24 hr 07/10/21 07/10/21 07/10/21 Range/Units 17:30 17:30 17:30 WBC 5.3 (5.0-10.0) 10^3/uL RBC 2.65 L (4.6-6.2) 10^6/uL Hgb 8.2 L (14.0-18.0) g/dL Hct 26.5 L (40.0-54.0) % MCV 100.0 (80-100) fL MCH 30.9 (27.0-34.0) pg MCHC 30.9 L (33.0-35.0) g/dL Plt Count 157 (150-450) 10^3/uL Neut % (Auto) 51.5 (42.2-75.2) % Lymph % (Auto) 22.5 (20.5-50.1) % Bath % (Auto) 20.2 H (2-8) % Eos % (Auto) 4.7 H (1.0-3.0) % Baso % (Auto) 1.1 H (0.0-1.0) % Sodium (136-145) mmol/L Potassium (3.5-5.1) mmol/L Chloride (98-107) mmol/L Carbon Dioxide (21-32) mmol/L Anion Gap (7-13) mEq/L BUN (7-18) mg/dL Creatinine (0.70-1.30) mg/dL Est Cr Clr Drug Dosing mL/min Estimated GFR (MDRD) BUN/Creatinine Ratio (No establ ref range) Glucose (70-99) mg/dL Calcium (8.5-10.1) mg/dL Phosphorus (2.6-4.7) mg/dL Magnesium 2.1 (1.8-2.4) mg/dL Iron 21 L (65-175) ug/dL TIBC 159 L (250-450) ug/dL % Saturation 13.2 L (20.0-50.0) % Ferritin 291 (26-388) mg/mL C-Reactive Protein (0.0-0.9) mg/dL Albumin (3.4-5.0) g/dL Vitamin B12 948 (193-986) pg/mL Folate 14.3 (8.6-58.9) ng/mL TSH, Ultra Sensitive 1.47 (0.36-3.74) uIU/mL Blood Type Gel Antibody Screen Crossmatch 07/10/21 07/11/21 07/11/21 Range/Units 17:30 05:15 05:15 WBC (5.0-10.0) 10^3/uL RBC (4.6-6.2) 10^6/uL Hgb 7.8 L (14.0-18.0) g/dL Hct (40.0-54.0) % MCV (80-100) fL MCH (27.0-34.0) pg MCHC (33.0-35.0) g/dL Plt Count (150-450) 10^3/uL Neut % (Auto) (42.2-75.2) % Lymph % (Auto) (20.5-50.1) % Bath % (Auto) (2-8) % Eos % (Auto) (1.0-3.0) % Baso % (Auto) (0.0-1.0) % Sodium 140 141 (136-145) mmol/L Potassium 5.1 4.8 (3.5-5.1) mmol/L Chloride 107 108 H (98-107) mmol/L Carbon Dioxide 24 26 (21-32) mmol/L Anion Gap 14.1 H 11.8 (7-13) mEq/L BUN 67 H 70 H (7-18) mg/dL Creatinine 2.34 H 2.16 H (0.70-1.30) mg/dL Est Cr Clr Drug Dosing 22.33 24.19 mL/min Estimated GFR (MDRD) 27 29 BUN/Creatinine Ratio 28.6 (No establ ref range) Glucose 156 H 128 H (70-99) mg/dL Calcium 8.1 L 7.9 L (8.5-10.1) mg/dL Phosphorus 3.6 (2.6-4.7) mg/dL Magnesium (1.8-2.4) mg/dL Iron (65-175) ug/dL TIBC (250-450) ug/dL % Saturation (20.0-50.0) % Ferritin (26-388) mg/mL C-Reactive Protein 4.9 H (0.0-0.9) mg/dL Albumin 2.2 L (3.4-5.0) g/dL Vitamin B12 (193-986) pg/mL Folate (8.6-58.9) ng/mL TSH, Ultra Sensitive (0.36-3.74) uIU/mL Blood Type Gel Antibody Screen Crossmatch 07/11/21 Range/Units 05:15 WBC (5.0-10.0) 10^3/uL RBC (4.6-6.2) 10^6/uL Hgb (14.0-18.0) g/dL Hct (40.0-54.0) % MCV (80-100) fL MCH (27.0-34.0) pg MCHC (33.0-35.0) g/dL Plt Count (150-450) 10^3/uL Neut % (Auto) (42.2-75.2) % Lymph % (Auto) (20.5-50.1) % Bath % (Auto) (2-8) % Eos % (Auto) (1.0-3.0) % Baso % (Auto) (0.0-1.0) % Sodium (136-145) mmol/L Potassium (3.5-5.1) mmol/L Chloride (98-107) mmol/L Carbon Dioxide (21-32) mmol/L Anion Gap (7-13) mEq/L BUN (7-18) mg/dL Creatinine (0.70-1.30) mg/dL Est Cr Clr Drug Dosing mL/min Estimated GFR (MDRD) BUN/Creatinine Ratio (No establ ref range) Glucose (70-99) mg/dL Calcium (8.5-10.1) mg/dL Phosphorus (2.6-4.7) mg/dL Magnesium (1.8-2.4) mg/dL Iron (65-175) ug/dL TIBC (250-450) ug/dL % Saturation (20.0-50.0) % Ferritin (26-388) mg/mL C-Reactive Protein (0.0-0.9) mg/dL Albumin (3.4-5.0) g/dL Vitamin B12 (193-986) pg/mL Folate (8.6-58.9) ng/mL TSH, Ultra Sensitive (0.36-3.74) uIU/mL Blood Type A POSITIVE Gel Antibody Screen Negative Crossmatch See Detail Result Diagrams: 07/11/21 05:15 07/11/21 05:15 Red Results Last 24 hrs: Microbiology 07/08/21 10:21 Aerobic Blood Culture - Preliminary Blood - Venous - Iv Start NO GROWTH AFTER 3 DAYS Anaerobic Blood Culture - Preliminary NO GROWTH AFTER 3 DAYS Sepsis Event Note - Evaluation Sepsis Screening Result: No Definite Risk - Focused Exam Vital Signs: Vital Signs Temp Temp Pulse Pulse Resp BP BP 07/11/21 16:00 98.7 F 59 L 28 H 151/64 H 07/11/21 15:00 98.9 F 62 28 H 142/66 H 07/11/21 14:00 98.7 F 62 28 H 135/52 L 07/11/21 13:43 98.6 F 61 28 H 128/65 07/11/21 13:22 98.6 F 62 28 H 121/49 L 07/11/21 12:55 139/52 L 07/11/21 12:54 66 139/52 L 07/11/21 12:00 98.8 F 66 20 139/52 L 07/11/21 08:00 99 F 65 24 H 106/39 L 07/11/21 07:28 78 07/11/21 07:00 78 Pulse Ox Pulse Ox 07/11/21 16:00 07/11/21 15:00 07/11/21 14:00 95 07/11/21 13:43 96 07/11/21 13:22 07/11/21 12:55 07/11/21 12:54 07/11/21 12:00 95 07/11/21 08:00 90 L 07/11/21 07:28 07/11/21 07:00 - Problem List Review Problem List Initiated/Reviewed/Updated: Yes - My Orders Last 24 Hours: My Active Orders 07/11/21 03:01 OCCULT BLOOD SCREEN [OP] Routine 07/11/21 05:15 RED BLOOD CELLS LP [BBK] Routine TYPE AND SCREEN [BBK] Routine 07/11/21 08:36 Transfuse PRBC [Transfuse Red Blood Cells] [COMM] Routine 07/11/21 08:38 Patient Status [ADT] Routine 07/12/21 05:11 BASIC METABOLIC PANEL,BMP [CHEM] AM HEMOGLOBIN [HEME] AM 07/13/21 05:11 BASIC METABOLIC PANEL,BMP [CHEM] AM HEMOGLOBIN [HEME] AM 07/14/21 05:11 BASIC METABOLIC PANEL,BMP [CHEM] AM HEMOGLOBIN [HEME] AM 07/15/21 05:11 BASIC METABOLIC PANEL,BMP [CHEM] AM HEMOGLOBIN [HEME] AM - Plan Plan:: HOSPITALIST PROGRESS NOTE SUBJECTIVE: Occasional cough while eating or drinking. Dyspnea on mild-moderate exertion; denies chest pain. A 4-point ROS of 7 systems otherwise negative for new or major findings. OBJECTIVE: Vitals viewed in chart. Grade 3/6 murmur in aortic region. Lungs clear to auscultation. Alert, oriented to place and person. A 4-point physical exam of 7 systems otherwise negative for new or major findings. ASSESSMENT / PLAN: Alan was admitted on 07/08 for hypoxia (reported as "<90% O2 sat") noted at [facility] during routine visit. He had also reported frontal headache and dyspnea at that time. Concern for acute hypoxic resp failure. However, O2 sat remained in acceptable range on room air since hospitalization; ?error in O2 sat monitoring at [facility]. Possibility of PE since d-dimer was 4x ULN; however, no chest pain, tachycardia or DVT on BLE ultrasound. General weakness / deconditioning. He mentioned his main symptom of concern as several weeks to months of progressive, now severe, general weakness. This is likely multifactorial; see below. OT/PT are following him; might need short-term SNF placement. Symptomatic severe anemia of iron deficiency. FOBT ordered; waiting to be collected. Two pack RBC transfused on 07/11; venofer 200mg IV x1 also given. Outpatient referral for endoscopies can be offered at discharge; otherwise, anemia could be from chronic renal disease and nephro referral can be considered. Chronic systolic heart failure NYHA class 2-3. LVEF 20-25% in 12/2020. Home lasix to continue. CAD. Severe, multivessel disease noted on angiogram 12/27/20; medication-based management was advised. Dual antiplatelets on regimen. CKD stage 4. Nephro referral outpatient can be considered. COPD. Budesonide neb BID and duoneb TID used while inpatient; stopped 07/11; PRN duoneb in place. Cognitive impairment. Family mentioned chronic short-term memory difficulty on discussion on 07/10; outpatient detailed eval can be advised. DVT px: heparin subcu stopped on 07/11, sequential compression device ordered. Code: DNR Depending on ongoing OT/PT assessment, might need short-term SNF placement. Considering severe coronary disease and progressing renal disease, hospice option can also be discussed.
[2021-07-11] MEDS: Non-Formulary Medication 1 Each (Fish Oil/Omega-3 Fatty Acids [Fish Oil 1,000 Mg] 1 GM Cap PO SCH ×2 (18:49→18:51)
[2021-07-12] MEDS: Acetaminophen 500 MG Tab PO SCH ×3 (01:12→16:18)
[2021-07-12 07:33] LABS: ANION GAP 11.1 mEq/L (7-13)
[2021-07-12] MEDS: Levothyroxine 88 MCG Tab PO SCH (08:42)
[2021-07-12] MEDS: Furosemide 40 MG Tab PO SCH (08:43)
[2021-07-12] MEDS: Lisinopril 5 MG Tab PO SCH (12:05)
[2021-07-12] MEDS: Carvedilol 25 MG Tab PO SCH ×2 (12:06→20:08)
[2021-07-12] MEDS: atorvaSTATin 20 MG Tab PO SCH (12:07)
[2021-07-12] MEDS: Clopidogrel 75 MG Tab PO SCH (12:07)
[2021-07-12] MEDS: Finasteride 5 MG Tab PO SCH (12:07)
[2021-07-12] MEDS: Aspirin 81 MG Tab.Chew PO SCH (12:08)
--- NOTE | 2021-07-12 12:56 | PCM.PN ---
- General Info Date of Service: 07/12/21 Admission Dx/Problem (Free Text): Alan was admitted on 07/08 hypoxia (reported as "<90% O2 sat") noted at [facility]. He had reported frontal headache and dyspnea at that time. Subjective Update: somnolent today. no acute concerns. wondering when he can go back home to his cats. Functional Status: Reports: Pain Controlled Pain Score: 0 - Review of Systems General: Reports: Weakness, Fatigue HEENT: Reports: No Symptoms Pulmonary: Reports: Shortness of Breath. Denies: Pleuritic Chest Pain, Cough, Sputum, Hemoptysis, Wheezing Cardiovascular: Reports: No Symptoms Gastrointestinal: Reports: No Symptoms Genitourinary: Reports: No Symptoms Musculoskeletal: Reports: No Symptoms Skin: Reports: No Symptoms Neurological: Reports: No Symptoms Psychiatric: Reports: No Symptoms - Patient Data Vitals - Most Recent: Last Vital Signs Temp 98.7 F 07/12/21 12:00 Pulse 61 07/12/21 12:06 Resp 28 H 07/12/21 12:00 BP 124/56 L 07/12/21 12:06 Pulse Ox 93 L 07/12/21 12:00 Weight - Most Recent: 162 lb 12.8 oz I&O - Last 24 Hours: Intake & Output 07/11/21 07/12/21 07/12/21 22:59 06:59 14:59 Intake Total 890 450 360 Balance 890 450 360 Lab Results Last 24 Hours: Laboratory Results - last 24 hr 07/11/21 07/12/21 07/12/21 Range/Units 05:15 05:15 05:15 Hgb 9.6 L D (14.0-18.0) g/dL Sodium 141 (136-145) mmol/L Potassium 5.1 (3.5-5.1) mmol/L Chloride 108 H (98-107) mmol/L Carbon Dioxide 27 (21-32) mmol/L Anion Gap 11.1 (7-13) mEq/L BUN 67 H (7-18) mg/dL Creatinine 2.12 H (0.70-1.30) mg/dL Est Cr Clr Drug Dosing 21.33 mL/min Estimated GFR (MDRD) 30 Glucose 132 H (70-99) mg/dL Calcium 7.9 L (8.5-10.1) mg/dL Blood Type A POSITIVE Gel Antibody Screen Negative Crossmatch See Detail Red Results Last 24 Hours: Microbiology 07/08/21 10:21 Aerobic Blood Culture - Preliminary Blood - Venous - Iv Start NO GROWTH AFTER 4 DAYS Anaerobic Blood Culture - Preliminary NO GROWTH AFTER 4 DAYS Med Orders - Current: Current Medications Acetaminophen (Acetaminophen 500 Mg Tab) 500 mg PO Q8H COUNTS INCLUDE 234 BEDS AT THE [facility] Last Admin: 07/12/21 08:42 Dose: 500 mg Documented by: Albuterol/Ipratropium (Albuterol/Ipratropium 3.0-0.5 Mg/3 Ml Neb Soln) 3 ml NEB Q2H PRN PRN Reason: sob Aspirin (Aspirin 81 Mg Tab.Chew) 81 mg PO DAILY@1200 COUNTS INCLUDE 234 BEDS AT THE [facility] Last Admin: 07/12/21 12:08 Dose: 81 mg Documented by: Atorvastatin Calcium (Atorvastatin 20 Mg Tab) 40 mg PO DAILY@1200 COUNTS INCLUDE 234 BEDS AT THE [facility] Last Admin: 07/12/21 12:07 Dose: 40 mg Documented by: Carvedilol (Carvedilol 25 Mg Tab) 12.5 mg PO BID@1200,2100 COUNTS INCLUDE 234 BEDS AT THE [facility] Last Admin: 07/12/21 12:06 Dose: 12.5 mg Documented by: Clopidogrel Bisulfate (Clopidogrel 75 Mg Tab) 75 mg PO DAILY@1200 COUNTS INCLUDE 234 BEDS AT THE [facility] Last Admin: 07/12/21 12:07 Dose: 75 mg Documented by: Finasteride (Finasteride 5 Mg Tab) 5 mg PO DAILY@1200 COUNTS INCLUDE 234 BEDS AT THE [facility] Last Admin: 07/12/21 12:07 Dose: 5 mg Documented by: Furosemide (Furosemide 40 Mg Tab) 60 mg PO DAILY@0800 COUNTS INCLUDE 234 BEDS AT THE [facility] Last Admin: 07/12/21 08:43 Dose: 60 mg Documented by: Levothyroxine Sodium (Levothyroxine 88 Mcg Tab) 88 mcg PO DAILY COUNTS INCLUDE 234 BEDS AT THE [facility] Last Admin: 07/12/21 08:42 Dose: 88 mcg Documented by: Lisinopril (Lisinopril 5 Mg Tab) 5 mg PO DAILY@1200 COUNTS INCLUDE 234 BEDS AT THE [facility] Last Admin: 07/12/21 12:05 Dose: 5 mg Documented by: Non-Formulary Medication (Cetirizine Hcl [All Day Allergy Relief]) 5 mg PO 1200 COUNTS INCLUDE 234 BEDS AT THE [facility] Ondansetron HCl (Ondansetron 4 Mg/2 Ml Sdv) 4 mg IVPUSH Q6H PRN PRN Reason: Nausea/Vomiting Last Admin: 07/12/21 01:29 Dose: 4 mg Documented by: Sodium Chloride (Sodium Chloride 0.9% 10 Ml Syringe) 10 ml FLUSH ASDIRECTED PRN PRN Reason: Keep Vein Open Discontinued Medications Albuterol/Ipratropium (Albuterol/Ipratropium 3.0-0.5 Mg/3 Ml Neb Soln) 3 ml NEB TIDRT COUNTS INCLUDE 234 BEDS AT THE [facility] Last Admin: 07/11/21 13:21 Dose: 3 ml Documented by: Ascorbic Acid (Ascorbic Acid 500 Mg Tab) 500 mg PO BEDTIME COUNTS INCLUDE 234 BEDS AT THE [facility] Last Admin: 07/09/21 21:32 Dose: 500 mg Documented by: Aspirin (Aspirin 81 Mg Tab.Chew) 81 mg PO 1200 [facility] Budesonide (Budesonide 0.5 Mg/2 Ml Neb Susp) 0.5 mg NEB BIDRT COUNTS INCLUDE 234 BEDS AT THE [facility] Last Admin: 07/11/21 07:26 Dose: 0.5 mg Documented by: Furosemide (Furosemide 20 Mg Tab) 20 mg PO BEDTIME COUNTS INCLUDE 234 BEDS AT THE [facility] Last Admin: 07/09/21 21:32 Dose: 20 mg Documented by: Heparin Sodium (Porcine) (Heparin Sodium 5,000 Units/Ml Vial) 5,000 units SUBCUT Q8HR COUNTS INCLUDE 234 BEDS AT THE [facility] Last Admin: 07/11/21 14:20 Dose: 5,000 units Documented by: Iron Sucrose (Iron Sucrose Complex 100 Mg/5 Ml Sdv) 200 mg IVPUSH ONETIME ONE Stop: 07/11/21 03:02 Last Admin: 07/11/21 18:39 Dose: Not Given Documented by: Iron Sucrose (Iron Sucrose Complex 100 Mg/5 Ml Sdv) 200 mg IVPUSH ONETIME ONE Stop: 07/11/21 12:31 Last Admin: 07/11/21 17:43 Dose: 200 mg Documented by: Non-Formulary Medication (Fish Oil/[place]-3 Fatty Acids [Fish Oil 1,000 Mg]) 1 gm PO DAILY COUNTS INCLUDE 234 BEDS AT THE [facility] Last Admin: 07/11/21 18:51 Dose: Not Given Documented by: Potassium Chloride (Potassium Chloride 10 Meq Tab.Er) 10 meq PO DAILY COUNTS INCLUDE 234 BEDS AT THE [facility] Last Admin: 07/10/21 08:32 Dose: 10 meq Documented by: Temazepam (Temazepam 15 Mg Cap) 15 mg PO BEDTIME PRN PRN Reason: Sleep - Exam Quality Assessment: Supplemental Oxygen, DVT Prophylaxis. No: Urine Catheter, Skin Breakdown General: Oriented, Other (somnolent) HEENT: Pupils Equal, EOMI Neck: Supple, No JVD Lungs: Decreased Breath Sounds, Wheezing (end expiratory wheeze ). No: Crackles, Rales, Rhonchi, Stridor GI/Abdominal Exam: Soft, Non-Tender Extremities: Normal Inspection, Normal Range of Motion Skin: Warm, Dry Neurological: No New Focal Deficit Psy/Mental Status: Normal Affect, Normal Mood - Patient Data Lab Results Last 24 hrs: Laboratory Results - last 24 hr 07/11/21 07/12/21 07/12/21 Range/Units 05:15 05:15 05:15 Hgb 9.6 L D (14.0-18.0) g/dL Sodium 141 (136-145) mmol/L Potassium 5.1 (3.5-5.1) mmol/L Chloride 108 H (98-107) mmol/L Carbon Dioxide 27 (21-32) mmol/L Anion Gap 11.1 (7-13) mEq/L BUN 67 H (7-18) mg/dL Creatinine 2.12 H (0.70-1.30) mg/dL Est Cr Clr Drug Dosing 21.33 mL/min Estimated GFR (MDRD) 30 Glucose 132 H (70-99) mg/dL Calcium 7.9 L (8.5-10.1) mg/dL Blood Type A POSITIVE Gel Antibody Screen Negative Crossmatch See Detail Result Diagrams: 07/12/21 05:15 07/12/21 05:15 Red Results Last 24 hrs: Microbiology 07/08/21 10:21 Aerobic Blood Culture - Preliminary Blood - Venous - Iv Start NO GROWTH AFTER 4 DAYS Anaerobic Blood Culture - Preliminary NO GROWTH AFTER 4 DAYS Sepsis Event Note - Evaluation Sepsis Screening Result: No Definite Risk - Focused Exam Vital Signs: Vital Signs Temp Temp Pulse Pulse Resp BP BP 07/12/21 12:06 61 124/56 L 07/12/21 12:05 124/56 L 07/12/21 12:00 98.7 F 61 28 H 124/56 L 07/12/21 08:00 98 F 65 24 H 114/48 L 07/12/21 00:55 98.9 F 62 18 154/59 H Pulse Ox 07/12/21 12:06 07/12/21 12:05 07/12/21 12:00 93 L 07/12/21 08:00 97 07/12/21 00:55 - Problem List Review Problem List Initiated/Reviewed/Updated: Yes - Plan Plan:: ACTIVE PROBLEMS: Acute respiratory failure with hypoxia: - O2 sats <90% at OR prior to admit. - possible PE given elevated d dime but no chest pain, tachycardia or DVT on BLE US, likely ruled out - possibly secondary to anemia - currently requiring 2L supplemental oxygen to maintain saturations >90% plan: - incentive spirometer - wean oxygen as tolerated. acute anemia, severe and symptomatic. anemia of chronic kidney disease - admit Hgb 9.8. Hgb 7.6 on 07/11 for which he was transfused 2U PRBC given hx of severe multivessel CAD - monitor hgb daily. will need to remain inpatient until stable and >8 - PCP to continue work - up for etiology as outpatient. Generalized weakness/ physical deconditioning, subacute: - symptoms present for weeks to months but slowly worsening. likely multifactorial and secondary to age and multiple chronic comorbid conditions. - PT / OT consulted. - Pt will benefit from short term swing bed or SNF stay to regain strength and mobility prior to discharging home. Chronic conditions: Chronic systolic heart failure NYHA class 2-3. LVEF 20-25% in 12/2020. Home lasix to continue. CAD. Severe, multivessel disease noted on angiogram 12/27/20; medication-based management was advised. Dual antiplatelets on regimen. CKD stage 4. Nephro referral outpatient can be considered. COPD. Budesonide neb BID and duoneb TID used while inpatient. Cognitive impairment. Family mentioned chronic short-term memory difficulty on discussion on 07/10; outpatient detailed eval can be advised. DVT px: heparin subcu Code: DNR MDM/interval hx: pt still requiring 2L supplemental oxygen. he did receive lasix between units of blood yesterday but may require an additional IV dose to get back to his baseline. He is still overall weak and somnolent today, transfusions were given late into the night yesterday so this is understandable. Hgb cu rrently greater than nine and stable but will plan to continue to monitor daily and will transfuse for hgb <8. current plan to discharge to swing bed or SNF on wednesday when case resolution specialist is available and facilities will accept the transfer.
[2021-07-12] MEDS: Sodium Chloride 0.9% 10 ML Syringe FLUSH PRN (20:07)
[2021-07-13] MEDS: Acetaminophen 500 MG Tab PO SCH ×3 (00:09→16:37)
[2021-07-13 06:21] LABS: ANION GAP 12.4 mEq/L (7-13)
[2021-07-13] MEDS: Levothyroxine 88 MCG Tab PO SCH (08:56)
[2021-07-13] MEDS: Furosemide 40 MG Tab PO SCH (08:56)
--- NOTE | 2021-07-13 10:33 | PCM.PN ---
- General Info Date of Service: 07/13/21 Admission Dx/Problem (Free Text): Alan was admitted on 07/08 hypoxia (reported as "<90% O2 sat") noted at [facility]. He had reported frontal headache and dyspnea at that time. Subjective Update: feels well today. not somnolent. has no acute concerns. aware that he will likely discharge tomorrow. Functional Status: Reports: Pain Controlled Pain Score: 0 - Review of Systems General: Reports: No Symptoms HEENT: Reports: No Symptoms Pulmonary: Reports: No Symptoms Cardiovascular: Reports: No Symptoms Gastrointestinal: Reports: No Symptoms Genitourinary: Reports: No Symptoms Musculoskeletal: Reports: No Symptoms Skin: Reports: No Symptoms Neurological: Reports: No Symptoms Psychiatric: Reports: No Symptoms - Patient Data Vitals - Most Recent: Last Vital Signs Temp 98.2 F 07/13/21 07:55 Pulse 64 07/13/21 07:55 Resp 22 H 07/13/21 07:55 BP 102/38 L 07/13/21 07:55 Pulse Ox 88 L 07/13/21 09:49 Weight - Most Recent: 165 lb I&O - Last 24 Hours: Intake & Output 07/12/21 07/13/21 07/13/21 22:59 06:59 14:59 Intake Total 1200 300 250 Output Total 200 250 Balance 1000 50 250 Lab Results Last 24 Hours: Laboratory Results - last 24 hr 07/13/21 07/13/21 Range/Units 05:20 05:20 Hgb 9.2 L (14.0-18.0) g/dL Sodium 138 (136-145) mmol/L Potassium 5.4 H (3.5-5.1) mmol/L Chloride 104 (98-107) mmol/L Carbon Dioxide 27 (21-32) mmol/L Anion Gap 12.4 (7-13) mEq/L BUN 74 H (7-18) mg/dL Creatinine 2.54 H (0.70-1.30) mg/dL Est Cr Clr Drug Dosing 17.80 mL/min Estimated GFR (MDRD) 24 Glucose 108 H (70-99) mg/dL Calcium 8.2 L (8.5-10.1) mg/dL Red Results Last 24 Hours: Microbiology 07/08/21 10:21 Aerobic Blood Culture - Final Blood - Venous - Iv Start NO GROWTH AFTER 5 DAYS Anaerobic Blood Culture - Final NO GROWTH AFTER 5 DAYS Med Orders - Current: Current Medications Acetaminophen (Acetaminophen 500 Mg Tab) 500 mg PO Q8H [facility] Last Admin: 07/13/21 08:55 Dose: 500 mg Documented by: Albuterol/Ipratropium (Albuterol/Ipratropium 3.0-0.5 Mg/3 Ml Neb Soln) 3 ml NEB Q2H PRN PRN Reason: sob Aspirin (Aspirin 81 Mg Tab.Chew) 81 mg PO DAILY@1200 [facility] Last Admin: 07/12/21 12:08 Dose: 81 mg Documented by: Atorvastatin Calcium (Atorvastatin 20 Mg Tab) 40 mg PO BEDTIME [facility] Carvedilol (Carvedilol 25 Mg Tab) 12.5 mg PO BID@1200,2100 [facility] Last Admin: 07/12/21 20:08 Dose: 12.5 mg Documented by: Clopidogrel Bisulfate (Clopidogrel 75 Mg Tab) 75 mg PO DAILY@1200 [facility] Last Admin: 07/12/21 12:07 Dose: 75 mg Documented by: Finasteride (Finasteride 5 Mg Tab) 5 mg PO DAILY@1200 [facility] Last Admin: 07/12/21 12:07 Dose: 5 mg Documented by: Furosemide (Furosemide 40 Mg Tab) 60 mg PO DAILY@0800 [facility] Last Admin: 07/13/21 08:56 Dose: 60 mg Documented by: Levothyroxine Sodium (Levothyroxine 88 Mcg Tab) 88 mcg PO DAILY [facility] Last Admin: 07/13/21 08:56 Dose: 88 mcg Documented by: Lisinopril (Lisinopril 5 Mg Tab) 5 mg PO DAILY@1200 [facility] Last Admin: 07/12/21 12:05 Dose: 5 mg Documented by: Non-Formulary Medication (Cetirizine Hcl [All Day Allergy Relief]) 5 mg PO 1200 [facility] Ondansetron HCl (Ondansetron 4 Mg/2 Ml Sdv) 4 mg IVPUSH Q6H PRN PRN Reason: Nausea/Vomiting Last Admin: 07/12/21 01:29 Dose: 4 mg Documented by: Sodium Chloride (Sodium Chloride 0.9% 10 Ml Syringe) 10 ml FLUSH ASDIRECTED PRN PRN Reason: Keep Vein Open Last Admin: 07/12/21 20:07 Dose: 10 ml Documented by: Discontinued Medications Albuterol/Ipratropium (Albuterol/Ipratropium 3.0-0.5 Mg/3 Ml Neb Soln) 3 ml NEB TIDRT [facility] Last Admin: 07/11/21 13:21 Dose: 3 ml Documented by: Ascorbic Acid (Ascorbic Acid 500 Mg Tab) 500 mg PO BEDTIME [facility] Last Admin: 07/09/21 21:32 Dose: 500 mg Documented by: Aspirin (Aspirin 81 Mg Tab.Chew) 81 mg PO 1200 [facility] Atorvastatin Calcium (Atorvastatin 20 Mg Tab) 40 mg PO DAILY@1200 [facility] Last Admin: 07/12/21 12:07 Dose: 40 mg Documented by: Budesonide (Budesonide 0.5 Mg/2 Ml Neb Susp) 0.5 mg NEB BIDRT [facility] Last Admin: 07/11/21 07:26 Dose: 0.5 mg Documented by: Furosemide (Furosemide 20 Mg Tab) 20 mg PO BEDTIME [facility] Last Admin: 07/09/21 21:32 Dose: 20 mg Documented by: Heparin Sodium (Porcine) (Heparin Sodium 5,000 Units/Ml Vial) 5,000 units SUBCUT Q8HR [facility] Last Admin: 07/11/21 14:20 Dose: 5,000 units Documented by: Iron Sucrose (Iron Sucrose Complex 100 Mg/5 Ml Sdv) 200 mg IVPUSH ONETIME ONE Stop: 07/11/21 03:02 Last Admin: 07/11/21 18:39 Dose: Not Given Documented by: Iron Sucrose (Iron Sucrose Complex 100 Mg/5 Ml Sdv) 200 mg IVPUSH ONETIME ONE Stop: 07/11/21 12:31 Last Admin: 07/11/21 17:43 Dose: 200 mg Documented by: Non-Formulary Medication (Fish Oil/[place]-3 Fatty Acids [Fish Oil 1,000 Mg]) 1 gm PO DAILY [facility] Last Admin: 07/11/21 18:51 Dose: Not Given Documented by: Potassium Chloride (Potassium Chloride 10 Meq Tab.Er) 10 meq PO DAILY [facility] Last Admin: 07/10/21 08:32 Dose: 10 meq Documented by: Temazepam (Temazepam 15 Mg Cap) 15 mg PO BEDTIME PRN PRN Reason: Sleep - Exam Quality Assessment: DVT Prophylaxis. No: Supplemental Oxygen, Urine Catheter General: Alert, Oriented HEENT: EOMI Neck: Supple Lungs: Clear to Auscultation, Normal Respiratory Effort, Decreased Breath Sounds (bilateral bases L>R) Cardiovascular: Regular Rate, Regular Rhythm, Murmurs (3/6 systolic) Extremities: Normal Inspection, Normal Range of Motion, No Pedal Edema Skin: Warm, Dry, Intact Psy/Mental Status: Alert, Normal Affect, Normal Mood - Patient Data Lab Results Last 24 hrs: Laboratory Results - last 24 hr 07/13/21 07/13/21 Range/Units 05:20 05:20 Hgb 9.2 L (14.0-18.0) g/dL Sodium 138 (136-145) mmol/L Potassium 5.4 H (3.5-5.1) mmol/L Chloride 104 (98-107) mmol/L Carbon Dioxide 27 (21-32) mmol/L Anion Gap 12.4 (7-13) mEq/L BUN 74 H (7-18) mg/dL Creatinine 2.54 H (0.70-1.30) mg/dL Est Cr Clr Drug Dosing 17.80 mL/min Estimated GFR (MDRD) 24 Glucose 108 H (70-99) mg/dL Calcium 8.2 L (8.5-10.1) mg/dL Result Diagrams: 07/13/21 05:20 07/13/21 05:20 Red Results Last 24 hrs: Microbiology 07/08/21 10:21 Aerobic Blood Culture - Final Blood - Venous - Iv Start NO GROWTH AFTER 5 DAYS Anaerobic Blood Culture - Final NO GROWTH AFTER 5 DAYS Sepsis Event Note - Evaluation Sepsis Screening Result: No Definite Risk - Focused Exam Vital Signs: Vital Signs Temp Pulse Resp BP BP Pulse Ox Pulse Ox 07/13/21 09:49 88 L 07/13/21 07:55 98.2 F 64 22 H 102/38 L 98 07/13/21 04:00 99.1 F 62 22 H 117/48 L 97 07/13/21 00:00 98.6 F 64 24 H 110/42 L 96 - Problem List Review Problem List Initiated/Reviewed/Updated: Yes - My Orders Last 24 Hours: My Active Orders 07/12/21 13:29 Incentive Spirometry [RT Incentive Spirometry] [RC] Q2HWA 07/13/21 21:00 atorvaSTATin [Lipitor] 40 mg PO BEDTIME - Plan Plan:: ACTIVE PROBLEMS: Acute respiratory failure with hypoxia: resolving - O2 sats <90% at [place] prior to admit. - possible PE given elevated d dime but no chest pain, tachycardia or DVT on BLE US, likely ruled out - possibly secondary to anemia - currently requiring 2L supplemental oxygen to maintain saturations >90% plan: - incentive spirometer - wean oxygen as tolerated. acute anemia, severe and symptomatic. anemia of chronic kidney disease - admit Hgb 9.8. Hgb 7.6 on 07/11 for which he was transfused 2U PRBC given hx of severe multivessel CAD - monitor hgb daily. will need to remain inpatient until stable and >8 - PCP to continue work - up for etiology as outpatient. Generalized weakness/ physical deconditioning, subacute: - symptoms present for weeks to months but slowly worsening. likely multifactorial and secondary to age and multiple chronic comorbid conditions. - PT / OT consulted. - Pt will benefit from short term swing bed or SNF stay to regain strength and mobility prior to discharging home. Chronic conditions: Chronic systolic heart failure NYHA class 2-3. LVEF 20-25% in 12/2020. Home lasix to continue. CAD. Severe, multivessel disease noted on angiogram 12/27/20; medication-based management was advised. Dual antiplatelets on regimen. CKD stage 4. Nephro referral outpatient can be considered. COPD. Budesonide neb BID and duoneb TID used while inpatient. Cognitive impairment. Family mentioned chronic short-term memory difficulty on discussion on 07/10; outpatient detailed eval can be advised. DVT px: heparin subcu Code: DNR MDM/interval hx: pt weaned off of oxygen this morning. currently O2 sats are 88- 90% on room air. he is more awake and alert today. He has no pain and no acute concerns. will wait for social services to come back tomorrow to finalize discharge plans.
[2021-07-13] MEDS: Clopidogrel 75 MG Tab PO SCH (12:08)
[2021-07-13] MEDS: Carvedilol 25 MG Tab PO SCH ×2 (12:08→21:06)
[2021-07-13] MEDS: Finasteride 5 MG Tab PO SCH (12:09)
[2021-07-13] MEDS: Aspirin 81 MG Tab.Chew PO SCH (12:09)
[2021-07-13] MEDS: Lisinopril 5 MG Tab PO SCH (12:09)
[2021-07-13] MEDS ORDERED: atorvaSTATin 20 MG Tab PO SCH (21:00)
[2021-07-13] MEDS: Sodium Chloride 0.9% 10 ML Syringe FLUSH PRN (21:06)
[2021-07-14] MEDS: Acetaminophen 500 MG Tab PO SCH ×3 (00:44→15:32)
[2021-07-14 06:41] LABS: ANION GAP 12.5 mEq/L (7-13)
[2021-07-14] MEDS: Furosemide 40 MG Tab PO SCH (08:23)
[2021-07-14] MEDS: Levothyroxine 88 MCG Tab PO SCH (08:23)
--- NOTE | 2021-07-14 12:08 | PCM.PN ---
- General Info Date of Service: 07/14/21 Admission Dx/Problem (Free Text): Alan was admitted on 07/08 hypoxia (reported as "<90% O2 sat") noted at [facility]. He had reported frontal headache and dyspnea at that time. Subjective Update: doing well today. has no acute concerns, no pain and had a BM yesterday. Functional Status: Reports: Pain Controlled - Review of Systems General: Reports: No Symptoms HEENT: Reports: No Symptoms Pulmonary: Reports: No Symptoms Cardiovascular: Reports: No Symptoms Gastrointestinal: Reports: No Symptoms Genitourinary: Reports: No Symptoms Musculoskeletal: Reports: No Symptoms Skin: Reports: No Symptoms Neurological: Reports: No Symptoms Psychiatric: Reports: No Symptoms - Patient Data Vitals - Most Recent: Last Vital Signs Temp 98.0 F 07/14/21 12:00 Pulse 36 L 07/14/21 12:00 Resp 18 07/14/21 12:00 BP 141/45 H 07/14/21 12:00 Pulse Ox 94 L 07/14/21 12:00 Weight - Most Recent: 166 lb I&O - Last 24 Hours: Intake & Output 07/13/21 07/14/21 07/14/21 22:59 06:59 14:59 Intake Total 300 100 Output Total 250 150 Balance 50 -50 Lab Results Last 24 Hours: Laboratory Results - last 24 hr 07/14/21 07/14/21 Range/Units 05:15 05:15 WBC 5.2 (5.0-10.0) 10^3/uL RBC 3.19 L (4.6-6.2) 10^6/uL Hgb 9.6 L (14.0-18.0) g/dL Hct 31.1 L (40.0-54.0) % MCV 97.5 (80-100) fL MCH 30.1 (27.0-34.0) pg MCHC 30.9 L (33.0-35.0) g/dL Plt Count 143 L (150-450) 10^3/uL Sodium 136 (136-145) mmol/L Potassium 5.5 H (3.5-5.1) mmol/L Chloride 103 (98-107) mmol/L Carbon Dioxide 26 (21-32) mmol/L Anion Gap 12.5 (7-13) mEq/L BUN 82 H (7-18) mg/dL Creatinine 2.46 H (0.70-1.30) mg/dL Est Cr Clr Drug Dosing 18.38 mL/min Estimated GFR (MDRD) 25 Glucose 94 (70-99) mg/dL Calcium 8.4 L (8.5-10.1) mg/dL Red Results Last 24 Hours: Microbiology 07/08/21 10:21 Aerobic Blood Culture - Final Blood - Venous - Iv Start NO GROWTH AFTER 5 DAYS Anaerobic Blood Culture - Final NO GROWTH AFTER 5 DAYS Med Orders - Current: Current Medications Acetaminophen (Acetaminophen 500 Mg Tab) 500 mg PO Q8H [facility] Last Admin: 07/14/21 08:23 Dose: 500 mg Documented by: Albuterol/Ipratropium (Albuterol/Ipratropium 3.0-0.5 Mg/3 Ml Neb Soln) 3 ml NEB Q2H PRN PRN Reason: sob Aspirin (Aspirin 81 Mg Tab.Chew) 81 mg PO DAILY@1200 [facility] Last Admin: 07/13/21 12:09 Dose: 81 mg Documented by: Atorvastatin Calcium (Atorvastatin 20 Mg Tab) 40 mg PO BEDTIME [facility] Last Admin: 07/13/21 21:08 Dose: 40 mg Documented by: Carvedilol (Carvedilol 25 Mg Tab) 12.5 mg PO BID@1200,2100 [facility] Last Admin: 07/13/21 21:06 Dose: 12.5 mg Documented by: Clopidogrel Bisulfate (Clopidogrel 75 Mg Tab) 75 mg PO DAILY@1200 [facility] Last Admin: 07/13/21 12:08 Dose: 75 mg Documented by: Finasteride (Finasteride 5 Mg Tab) 5 mg PO DAILY@1200 [facility] Last Admin: 07/13/21 12:09 Dose: 5 mg Documented by: Furosemide (Furosemide 40 Mg Tab) 60 mg PO DAILY@0800 [facility] Last Admin: 07/14/21 08:23 Dose: 60 mg Documented by: Levothyroxine Sodium (Levothyroxine 88 Mcg Tab) 88 mcg PO ACBREAKFAST [facility] Lisinopril (Lisinopril 5 Mg Tab) 5 mg PO DAILY@1200 [facility] Last Admin: 07/13/21 12:09 Dose: Not Given Documented by: Non-Formulary Medication (Cetirizine Hcl [All Day Allergy Relief]) 5 mg PO 1200 [facility] Ondansetron HCl (Ondansetron 4 Mg/2 Ml Sdv) 4 mg IVPUSH Q6H PRN PRN Reason: Nausea/Vomiting Last Admin: 07/12/21 01:29 Dose: 4 mg Documented by: Sodium Chloride (Sodium Chloride 0.9% 10 Ml Syringe) 10 ml FLUSH ASDIRECTED PRN PRN Reason: Keep Vein Open Last Admin: 07/13/21 21:06 Dose: 10 ml Documented by: Discontinued Medications Albuterol/Ipratropium (Albuterol/Ipratropium 3.0-0.5 Mg/3 Ml Neb Soln) 3 ml NEB TIDRT [facility] Last Admin: 07/11/21 13:21 Dose: 3 ml Documented by: Ascorbic Acid (Ascorbic Acid 500 Mg Tab) 500 mg PO BEDTIME [facility] Last Admin: 07/09/21 21:32 Dose: 500 mg Documented by: Aspirin (Aspirin 81 Mg Tab.Chew) 81 mg PO 1200 [facility] Atorvastatin Calcium (Atorvastatin 20 Mg Tab) 40 mg PO DAILY@1200 [facility] Last Admin: 07/12/21 12:07 Dose: 40 mg Documented by: Budesonide (Budesonide 0.5 Mg/2 Ml Neb Susp) 0.5 mg NEB BIDRT [facility] Last Admin: 07/11/21 07:26 Dose: 0.5 mg Documented by: Furosemide (Furosemide 20 Mg Tab) 20 mg PO BEDTIME [facility] Last Admin: 07/09/21 21:32 Dose: 20 mg Documented by: Heparin Sodium (Porcine) (Heparin Sodium 5,000 Units/Ml Vial) 5,000 units SUBCUT Q8HR [facility] Last Admin: 07/11/21 14:20 Dose: 5,000 units Documented by: Iron Sucrose (Iron Sucrose Complex 100 Mg/5 Ml Sdv) 200 mg IVPUSH ONETIME ONE Stop: 07/11/21 03:02 Last Admin: 07/11/21 18:39 Dose: Not Given Documented by: Iron Sucrose (Iron Sucrose Complex 100 Mg/5 Ml Sdv) 200 mg IVPUSH ONETIME ONE Stop: 07/11/21 12:31 Last Admin: 07/11/21 17:43 Dose: 200 mg Documented by: Levothyroxine Sodium (Levothyroxine 88 Mcg Tab) 88 mcg PO DAILY [facility] Last Admin: 07/14/21 08:23 Dose: 88 mcg Documented by: Non-Formulary Medication (Fish Oil/[place]-3 Fatty Acids [Fish Oil 1,000 Mg]) 1 gm PO DAILY [facility] Last Admin: 07/11/21 18:51 Dose: Not Given Documented by: Potassium Chloride (Potassium Chloride 10 Meq Tab.Er) 10 meq PO DAILY [facility] Last Admin: 07/10/21 08:32 Dose: 10 meq Documented by: Temazepam (Temazepam 15 Mg Cap) 15 mg PO BEDTIME PRN PRN Reason: Sleep - Exam Quality Assessment: DVT Prophylaxis. No: Supplemental Oxygen, Urine Catheter General: Alert, Oriented, Cooperative, No Acute Distress HEENT: EOMI Neck: Supple, No JVD Lungs: Clear to Auscultation, Normal Respiratory Effort. No: Crackles, Rales, Rhonchi, Rub, Wheezing Cardiovascular: Regular Rate, Regular Rhythm, Murmurs GI/Abdominal Exam: Soft, Non-Tender (Male) Exam: Deferred Back Exam: Normal Inspection Extremities: Normal Range of Motion, Non-Tender Skin: Warm, Dry, Intact Wound/Incisions: Healing Well Neurological: No New Focal Deficit Psy/Mental Status: Normal Affect, Normal Mood - Patient Data Lab Results Last 24 hrs: Laboratory Results - last 24 hr 07/14/21 07/14/21 Range/Units 05:15 05:15 WBC 5.2 (5.0-10.0) 10^3/uL RBC 3.19 L (4.6-6.2) 10^6/uL Hgb 9.6 L (14.0-18.0) g/dL Hct 31.1 L (40.0-54.0) % MCV 97.5 (80-100) fL MCH 30.1 (27.0-34.0) pg MCHC 30.9 L (33.0-35.0) g/dL Plt Count 143 L (150-450) 10^3/uL Sodium 136 (136-145) mmol/L Potassium 5.5 H (3.5-5.1) mmol/L Chloride 103 (98-107) mmol/L Carbon Dioxide 26 (21-32) mmol/L Anion Gap 12.5 (7-13) mEq/L BUN 82 H (7-18) mg/dL Creatinine 2.46 H (0.70-1.30) mg/dL Est Cr Clr Drug Dosing 18.38 mL/min Estimated GFR (MDRD) 25 Glucose 94 (70-99) mg/dL Calcium 8.4 L (8.5-10.1) mg/dL Result Diagrams: 07/14/21 05:15 07/14/21 05:15 Red Results Last 24 hrs: Microbiology 07/08/21 10:21 Aerobic Blood Culture - Final Blood - Venous - Iv Start NO GROWTH AFTER 5 DAYS Anaerobic Blood Culture - Final NO GROWTH AFTER 5 DAYS Sepsis Event Note - Evaluation Sepsis Screening Result: No Definite Risk - Focused Exam Vital Signs: Vital Signs Temp Pulse Resp BP BP Pulse Ox Pulse Ox 07/14/21 12:00 98.0 F 36 L 18 141/45 H 94 L 07/14/21 09:00 98 07/14/21 07:42 97.8 F 61 20 129/38 L 91 L 07/14/21 04:00 98.8 F 63 20 134/47 L 91 L - Problem List Review Problem List Initiated/Reviewed/Updated: Yes - My Orders Last 24 Hours: My Active Orders 07/13/21 21:00 atorvaSTATin [Lipitor] 40 mg PO BEDTIME 07/15/21 05:11 CBC W/O DIFF,HEMOGRAM [HEME] AM - Plan Plan:: ACTIVE PROBLEMS: Acute respiratory failure with hypoxia: resolving - O2 sats <90% at [facility] prior to admit. - possible PE given elevated d dime but no chest pain, tachycardia or DVT on BLE US, likely ruled out - possibly secondary to anemia - currently maintaining saturations >90% on room air plan: - incentive spirometer acute anemia, severe and symptomatic. anemia of chronic kidney disease - admit Hgb 9.8. Hgb 7.6 on 07/11 for which he was transfused 2U PRBC given hx of severe multivessel CAD - current hgb 9.6 and steadily up trending - PCP to continue work - up for etiology as outpatient. Generalized weakness/ physical deconditioning, subacute: - symptoms present for weeks to months but slowly worsening. likely multifactorial and secondary to age and multiple chronic comorbid conditions. - PT / OT consulted and following. - Pt will benefit from short term swing bed or SNF stay to regain strength and m obility prior to discharging home. Chronic conditions: Chronic systolic heart failure NYHA class 2-3. LVEF 20-25% in 12/2020. Home lasix to continue. CAD. Severe, multivessel disease noted on angiogram 12/27/20; medication-based management was advised. Dual antiplatelets on regimen. CKD stage 4. Nephro referral outpatient can be considered. COPD. Budesonide neb BID and duoneb TID used while inpatient. Cognitive impairment. Family mentioned chronic short-term memory difficulty on discussion on 07/10; outpatient detailed eval can be advised. DVT px: heparin subcu Code: DNR MDM/interval hx: pt remains on room air with O2 sats 88-90%. He has no pain and no acute concerns. will await mental health case manager and PT recommendations [facility] Pt is medically stable to discharge when a safe discharge plan is complete and a bed is available.
[2021-07-14] MEDS: Clopidogrel 75 MG Tab PO SCH (12:59)
[2021-07-14] MEDS: Lisinopril 5 MG Tab PO SCH (12:59)
[2021-07-14] MEDS: Finasteride 5 MG Tab PO SCH (12:59)
[2021-07-14] MEDS: Aspirin 81 MG Tab.Chew PO SCH (13:00)
[2021-07-14] MEDS: Carvedilol 25 MG Tab PO SCH (13:00)
[2021-07-14 16:18] VITALS: BP 130/53; PULSE 60
--- NOTE | 2021-07-14 18:23 | PCM.DCSUM1 ---
Discharge Summary - Hospital Course Brief History: see below Diagnosis: Stroke: No - Discharge Data Discharge Date: 07/14/21 Discharge Disposition: DC/Tfer W/I Hosp To Swing Condition: Good - Referral to Home Health Primary Care Physician: PCP None - Patient Summary/Data Consults: Consultations 07/09/21 08:44 Consult to Occupational Therapy [OT Evaluation and Treatment] [CONS] Routine PT Evaluation and Treatment [CONS] Routine Hospital Course: Alan is an 85 yo man with PMH significant for CHF, DMII, CKD and dementia. He was seen at the [facility] on 07/08 at which time he was noted to be complaining of increased shortness of breath. per pt report he had a cold the previous week and a headache (pressure in front of head) and shortness of breath. The [facility] provider reported that the patient had an oxygen saturation < 90%. While in the ED he had oxygen saturations >80% and was hemodynamically stable. He was admitted to the hospital for monitoring. he was found to be extremely weak and deconditioned. PT/OT recommended discharge to swing bed to continue to work on regaining strength and mobility. He was thought to be medically stable for discharge to the swing bed on 07/14/21. There were no further questions or concerns at the time of discharge. - Patient Instructions Diet: Heart Healthy Diet, Low Sodium Activity: As Tolerated Driving: Do Not Drive Showering/Bathing: May Shower - Discharge Plan *PRESCRIPTION DRUG MONITORING PROGRAM REVIEWED*: Not Applicable *COPY OF PRESCRIPTION DRUG MONITORING REPORT IN PATIENT ANDREW: Not Applicable Home Medications: Home Meds Albuterol [Ventolin HFA] 2 puff INH Q6H PRN 07/08/21 [History] Aspirin 81 mg PO 1200 07/08/21 [History] Cetirizine HCl [All Day Allergy Relief] 5 mg PO 1200 07/08/21 [History] Clopidogrel Bisulfate [Plavix] 75 mg PO 1200 07/08/21 [History] Finasteride [Proscar] 5 mg PO 1200 07/08/21 [History] Fluticasone Propionate [24 Hour Allergy] 1 spray NS DAILY 07/08/21 [History] Furosemide 60 mg PO DAILY@0800 07/08/21 [History] Levothyroxine Sodium [Levothyroxine] 88 mcg PO DAILY 07/08/21 [History] Potassium Chloride 10 meq PO DAILY 07/08/21 [History] carvediloL [Carvedilol] 12.5 mg PO BID 07/08/21 [History] lisinopriL [Lisinopril] 5 mg PO 1200 07/08/21 [History] Acetaminophen [Tylenol Extra Strength] 500 mg PO Q8H tablet 07/14/21 [Rx] Albuterol/Ipratropium [DuoNeb 3.0-0.5 MG/3 ML] 3 ml NEB Q2H PRN neb 07/14/21 [Rx] atorvaSTATin [Lipitor] 40 mg PO BEDTIME tablet 07/14/21 [Rx] Oxygen Therapy Mode: Room Air - Discharge Summary/Plan Comment DC Time >30 min.: Yes Total # of Minutes for Discharge Time: 45 - General Info Date of Service: 07/14/21 Functional Status: Reports: Pain Controlled - Review of Systems General: Reports: Weakness HEENT: Reports: No Symptoms Pulmonary: Reports: No Symptoms Cardiovascular: Reports: No Symptoms Gastrointestinal: Reports: No Symptoms Genitourinary: Reports: No Symptoms Musculoskeletal: Reports: No Symptoms Skin: Reports: No Symptoms Neurological: Reports: No Symptoms Psychiatric: Reports: No Symptoms - Patient Data Vitals - Most Recent: Last Vital Signs Temp 98.7 F 07/14/21 16:17 Pulse 60 07/14/21 16:17 Resp 20 07/14/21 16:17 BP 130/53 L 07/14/21 16:17 Pulse Ox 95 07/14/21 16:17 Weight - Most Recent: 166 lb I&O - Last 24 hours: Intake & Output 07/14/21 07/14/21 07/14/21 06:59 14:59 22:59 Intake Total 100 250 500 Output Total 150 Balance -50 250 500 Lab Results - Last 24 hrs: Laboratory Results - last 24 hr 07/14/21 07/14/21 Range/Units 05:15 05:15 WBC 5.2 (5.0-10.0) 10^3/uL RBC 3.19 L (4.6-6.2) 10^6/uL Hgb 9.6 L (14.0-18.0) g/dL Hct 31.1 L (40.0-54.0) % MCV 97.5 (80-100) fL MCH 30.1 (27.0-34.0) pg MCHC 30.9 L (33.0-35.0) g/dL Plt Count 143 L (150-450) 10^3/uL Sodium 136 (136-145) mmol/L Potassium 5.5 H (3.5-5.1) mmol/L Chloride 103 (98-107) mmol/L Carbon Dioxide 26 (21-32) mmol/L Anion Gap 12.5 (7-13) mEq/L BUN 82 H (7-18) mg/dL Creatinine 2.46 H (0.70-1.30) mg/dL Est Cr Clr Drug Dosing 18.38 mL/min Estimated GFR (MDRD) 25 Glucose 94 (70-99) mg/dL Calcium 8.4 L (8.5-10.1) mg/dL Med Orders - Current: Current Medications Acetaminophen (Acetaminophen 500 Mg Tab) 500 mg PO Q8H [facility] Last Admin: 07/14/21 15:32 Dose: 500 mg Documented by: Albuterol/Ipratropium (Albuterol/Ipratropium 3.0-0.5 Mg/3 Ml Neb Soln) 3 ml NEB Q2H PRN PRN Reason: sob Aspirin (Aspirin 81 Mg Tab.Chew) 81 mg PO DAILY@1200 [facility] Last Admin: 07/14/21 13:00 Dose: 81 mg Documented by: Atorvastatin Calcium (Atorvastatin 20 Mg Tab) 40 mg PO BEDTIME [facility] Last Admin: 07/13/21 21:08 Dose: 40 mg Documented by: Carvedilol (Carvedilol 25 Mg Tab) 12.5 mg PO BID@1200,2100 [facility] Last Admin: 07/14/21 13:00 Dose: 12.5 mg Documented by: Clopidogrel Bisulfate (Clopidogrel 75 Mg Tab) 75 mg PO DAILY@1200 [facility] Last Admin: 07/14/21 12:59 Dose: 75 mg Documented by: Finasteride (Finasteride 5 Mg Tab) 5 mg PO DAILY@1200 [facility] Last Admin: 07/14/21 12:59 Dose: 5 mg Documented by: Furosemide (Furosemide 40 Mg Tab) 60 mg PO DAILY@0800 [facility] Last Admin: 07/14/21 08:23 Dose: 60 mg Documented by: Levothyroxine Sodium (Levothyroxine 88 Mcg Tab) 88 mcg PO ACBREAKFAST [facility] Lisinopril (Lisinopril 5 Mg Tab) 5 mg PO DAILY@1200 [facility] Last Admin: 07/14/21 12:59 Dose: 5 mg Documented by: Ondansetron HCl (Ondansetron 4 Mg/2 Ml Sdv) 4 mg IVPUSH Q6H PRN PRN Reason: Nausea/Vomiting Last Admin: 07/12/21 01:29 Dose: 4 mg Documented by: Sodium Chloride (Sodium Chloride 0.9% 10 Ml Syringe) 10 ml FLUSH ASDIRECTED PRN PRN Reason: Keep Vein Open Last Admin: 07/13/21 21:06 Dose: 10 ml Documented by: Discontinued Medications Albuterol/Ipratropium (Albuterol/Ipratropium 3.0-0.5 Mg/3 Ml Neb Soln) 3 ml NEB TIDRT [facility] Last Admin: 07/11/21 13:21 Dose: 3 ml Documented by: Ascorbic Acid (Ascorbic Acid 500 Mg Tab) 500 mg PO BEDTIME [facility] Last Admin: 07/09/21 21:32 Dose: 500 mg Documented by: Aspirin (Aspirin 81 Mg Tab.Chew) 81 mg PO 1200 [facility] Atorvastatin Calcium (Atorvastatin 20 Mg Tab) 40 mg PO DAILY@1200 [facility] Last Admin: 07/12/21 12:07 Dose: 40 mg Documented by: Budesonide (Budesonide 0.5 Mg/2 Ml Neb Susp) 0.5 mg NEB BIDRT [facility] Last Admin: 07/11/21 07:26 Dose: 0.5 mg Documented by: Furosemide (Furosemide 20 Mg Tab) 20 mg PO BEDTIME [facility] Last Admin: 07/09/21 21:32 Dose: 20 mg Documented by: Heparin Sodium (Porcine) (Heparin Sodium 5,000 Units/Ml Vial) 5,000 units SUBCUT Q8HR [facility] Last Admin: 07/11/21 14:20 Dose: 5,000 units Documented by: Iron Sucrose (Iron Sucrose Complex 100 Mg/5 Ml Sdv) 200 mg IVPUSH ONETIME ONE Stop: 07/11/21 03:02 Last Admin: 07/11/21 18:39 Dose: Not Given Documented by: Iron Sucrose (Iron Sucrose Complex 100 Mg/5 Ml Sdv) 200 mg IVPUSH ONETIME ONE Stop: 07/11/21 12:31 Last Admin: 07/11/21 17:43 Dose: 200 mg Documented by: Levothyroxine Sodium (Levothyroxine 88 Mcg Tab) 88 mcg PO DAILY [facility] Last Admin: 07/14/21 08:23 Dose: 88 mcg Documented by: Non-Formulary Medication (Cetirizine Hcl [All Day Allergy Relief]) 5 mg PO 1200 [facility] Last Admin: 07/14/21 16:19 Dose: Not Given Documented by: Non-Formulary Medication (Fish Oil/[place]-3 Fatty Acids [Fish Oil 1,000 Mg]) 1 gm PO DAILY [facility] Last Admin: 07/11/21 18:51 Dose: Not Given Documented by: Potassium Chloride (Potassium Chloride 10 Meq Tab.Er) 10 meq PO DAILY [facility] Last Admin: 07/10/21 08:32 Dose: 10 meq Documented by: Temazepam (Temazepam 15 Mg Cap) 15 mg PO BEDTIME PRN PRN Reason: Sleep - Exam General: Reports: Alert, Oriented (to person and place) HEENT: Reports: EOMI Neck: Reports: Supple, No JVD Cardiovascular: Reports: Regular Rate, Regular Rhythm, Murmurs GI/Abdominal Exam: Soft, Non-Tender (Male) Exam: Deferred Rectal (Males) Exam: Deferred Back Exam: Reports: Normal Inspection Extremities: Normal Inspection Skin: Reports: Warm, Dry Neurological: Reports: No New Focal Deficit Psy/Mental Status: Reports: Normal Affect, Normal Mood *Q Meaningful Use (DIS) - VTE *Q VTE Mechanical Contraindications *Q: Tx/Proc Refused byPt VTE Pharmacological Contraindications *Q: Tx/Proc Refused by Pt VTE Anticoagulation Contraindications: Tx/proc Refused by PT - Stroke *Q Anticoagulation Contraindications Stroke *Q: TX/PROC Refused by PT Antithrombotic Contraindications Stroke *Q: TX/PROC Refused by PT Statin Contraindications Stroke *Q: TX/PROC Refused by PT Rehabilitation Assessment Contraindication *Q: Tx/proc refused by pt - AMI *Q Aspirin Contraindications AMI *Q: TX/PROC Refused by PT Statin Contraindications AMI *Q: TX/Proc Refused by PT
[2021-07-15] MEDS ORDERED: Levothyroxine 88 MCG Tab PO SCH (06:00)
== END 2021-07-14 18:26 | disposition swing bed (61) | DRG 291 ==
LOC: DL.ED 10:02 → DL.MS 13:36 → OBSVTOIN 07-11 08:38
PROVIDERS: ADMIT Internal Medicine; ATTEND Hospitalist
PROC: 30233N1 Transfusion of Nonautologous Red Blood Cells into Peripheral Vein, Percutaneous Approach (ICD-10-PCS; principal; 2021-07-08)
DX: R09.02 Hypoxemia (principal); J96.01 Acute respiratory failure with hypoxia; I50.22 Chronic systolic (congestive) heart failure; Z66 Do not resuscitate; D63.1 Anemia in chronic kidney disease; F03.90 Unspecified dementia, unspecified severity, without behavioral disturbance, psychotic disturbance, mood disturbance, and anxiety; H44.9 Unspecified disorder of globe; J44.9 Chronic obstructive pulmonary disease, unspecified; I25.10 Atherosclerotic heart disease of native coronary artery without angina pectoris; E03.9 Hypothyroidism, unspecified; I13.0 Hypertensive heart and chronic kidney disease with heart failure and stage 1 through stage 4 chronic kidney disease, or unspecified chronic kidney disease; N18.4 Chronic kidney disease, stage 4 (severe); H54.7 Unspecified visual loss; Z95.1 Presence of aortocoronary bypass graft; Z28.82 Immunization not carried out because of caregiver refusal; Z79.82 Long term (current) use of aspirin; Z79.890 Hormone replacement therapy; Z79.899 Other long term (current) drug therapy; E78.00 Pure hypercholesterolemia, unspecified; Z98.49 Cataract extraction status, unspecified eye; I25.2 Old myocardial infarction; M19.90 Unspecified osteoarthritis, unspecified site; E11.22 Type 2 diabetes mellitus with diabetic chronic kidney disease; Z20.822 Contact with and (suspected) exposure to COVID-19; D50.9 Iron deficiency anemia, unspecified
CPT/HCPCS: 0240U; 36415; 36430; 71046; 80048; 80053; 80069; 81001; 82607; 82728; 82746; 83540; 83550; 83605; 83735; 83880; 84443; 84484; 85018; 85025; 85027; 85379; 86140; 86850; 86900; 86901; 86920; 86922; 87040; 93005; 93970; 94640; 96372; 96374; 97116; 97161; 97166; 97530; 99285; A9270-GY; G0378; J1644; J1756; J2405; J7620-GY; P9016

== ENCOUNTER 2021-07-14 11:04 | Inpatient (IN) | payer MEDICARE ==
[2021-07-14] MEDS ORDERED: Albuterol/Ipratropium 3.0-0.5 MG/3 ML Neb Soln NEB PRN (18:26)
--- NOTE | 2021-07-14 18:33 | PCM.HP ---
H&P History of Present Illness - General Date of Service: 07/14/21 Admit Problem/Dx: Admission Diagnosis/Problem Admission Diagnosis/Problem Short of breath on exertion Source of Information: Patient, EMS, RN History Limitations: Reports: No Limitations - History of Present Illness Initial Comments - Free Text/Narative: Alan is an 85 yo man with PMH significant for CHF, DMII, CKD and dementia. He was seen at the [place] [facility] on 07/08 at which time he was noted to be complaining of increased shortness of breath. per pt report he had a cold the previous week and a headache (pressure in front of head) and shortness of breath. [facility] the patient had an oxygen saturation < 90%. While in the ED he had oxygen saturations >80% and was hemodynamically stable. He was admitted to the hospital for monitoring. he was found to be extremely weak and deconditioned. PT/OT recommended discharge to swing bed to continue to work on regaining strength and mobility. He was thought to be medically stable for discharge to the swing bed on 07/14/21. There were no further questions or concerns at the time of discharge. - Related Data Allergies/Adverse Reactions: Allergies Allergy/AdvReac Type Severity Reaction Status Date / Time No Known Allergies Allergy Verified 07/14/21 11:08 Home Medications: Home Meds Albuterol [Ventolin HFA] 2 puff INH Q6H PRN 07/08/21 [History] Aspirin 81 mg PO 1200 07/08/21 [History] Cetirizine HCl [All Day Allergy Relief] 5 mg PO 1200 07/08/21 [History] Clopidogrel Bisulfate [Plavix] 75 mg PO 1200 07/08/21 [History] Finasteride [Proscar] 5 mg PO 1200 07/08/21 [History] Fluticasone Propionate [24 Hour Allergy] 1 spray NS DAILY 07/08/21 [History] Furosemide 60 mg PO DAILY@0800 07/08/21 [History] Levothyroxine Sodium [Levothyroxine] 88 mcg PO DAILY 07/08/21 [History] Potassium Chloride 10 meq PO DAILY 07/08/21 [History] carvediloL [Carvedilol] 12.5 mg PO BID 07/08/21 [History] lisinopriL [Lisinopril] 5 mg PO 1200 07/08/21 [History] Acetaminophen [Tylenol Extra Strength] 500 mg PO Q8H tablet 07/14/21 [Rx] Albuterol/Ipratropium [DuoNeb 3.0-0.5 MG/3 ML] 3 ml NEB Q2H PRN neb 07/14/21 [Rx] atorvaSTATin [Lipitor] 40 mg PO BEDTIME tablet 07/14/21 [Rx] Past Medical History HEENT History: Reports: Cataract, Impaired Vision Other HEENT History: wears glasses, hx of tonsilitis Cardiovascular History: Reports: Bypass, CAD, Heart Failure, High Cholesterol, Hypertension, [place], SOB on Exertion, Stents Respiratory History: Reports: Bronchitis, Recurrent, COPD Other Respiratory History: hx of strep throat Gastrointestinal History: Reports: None Genitourinary History: Reports: None Musculoskeletal History: Reports: Arthritis, Fracture Neurological History: Reports: Migraines Psychiatric History: Reports: None Endocrine/Metabolic History: Reports: Diabetes, Type II, Hypothyroidism Hematologic History: Reports: Blood Transfusion(s) Immunologic History: Reports: None Oncologic (Cancer) History: Reports: None Dermatologic History: Reports: Other (See Below) Other Dermatologic History: heat rash - Infectious Disease History Infectious Disease History: Reports: Chicken Pox, Measles, Mumps, Shingles - Past Surgical History Head Surgeries/Procedures: Reports: None HEENT Surgical History: Reports: Cataract Surgery Other HEENT Surgeries/Procedures: Pt states that he gets injections into bilateral eyes q 2 month for "diabetic complications" Cardiovascular Surgical History: Reports: Coronary Artery Bypass Other Cardiovascular Surgeries/Procedures: triple bypass Respiratory Surgical History: Reports: None GI Surgical History: Reports: None Male Surgical History: Reports: None Endocrine Surgical History: Reports: None Neurological Surgical History: Reports: None Musculoskeletal Surgical History: Reports: None Dermatological Surgical History: Reports: None Social & Family History - Family History Family Medical History: No Pertinent Family History - Tobacco Use Tobacco Use Status *Q: Never Tobacco User - Caffeine Use Caffeine Use: Reports: Tea - Recreational Drug Use Recreational Drug Use: No - Living Situation & Occupation Living situation: Reports: Single, Alone Occupation: Retired H&P Review of Systems - Review of Systems: Review Of Systems: See Below General: Reports: Weakness. Denies: Fever, Chills, Decreased Appetite HEENT: Reports: No Symptoms Pulmonary: Reports: No Symptoms. Denies: Shortness of Breath, Wheezing Cardiovascular: Reports: No Symptoms Gastrointestinal: Reports: No Symptoms Genitourinary: Reports: No Symptoms Musculoskeletal: Reports: No Symptoms Skin: Reports: Other (mild irritation at uretheral meatus) Psychiatric: Reports: No Symptoms Neurological: Reports: No Symptoms Hematologic/Lymphatic: Reports: No Symptoms Immunologic: Reports: No Symptoms Exam - Exam Exam: See Below - Vital Signs Weight: 166 lb - Exam Quality Assessment: DVT Prophylaxis. No: Supplemental Oxygen General: Alert, Oriented HEENT: EOMI, Mucosa Moist & [place] Neck: Supple Lungs: Clear to Auscultation, Normal Respiratory Effort, Decreased Breath Sounds. No: Rales, Rhonchi, Wheezing Cardiovascular: Regular Rate, Regular Rhythm, Systolic Murmur GI/Abdominal Exam: Normal Bowel Sounds, Soft, Non-Tender (Male) Exam: Deferred Rectal (Males) Exam: Deferred Back Exam: Full Range of Motion Extremities: Normal Range of Motion, Non-Tender, Pedal Edema (trace BLE) Skin: Warm, Dry, Intact Neuro Extensive - Mental Status: Alert, Normal Mood/Affect, Disorientation to Time, Memory Loss-Remote Events. No: Disorientation to Person, Disorientation to Place Psychiatric: Normal Affect, Normal Mood Problem List Initiated/Reviewed/Updated: Yes Orders Last 24hrs: Active Orders 24 hr Category Date Time Status Patient Status [ADT] Routine ADT 07/14/21 18:29 Ordered Antiembolic Devices [RC] PER UNIT ROUTINE Care 07/14/21 18:26 Ordered Dietary Supplements [RC] BIDMEALS Care 07/14/21 18:26 Ordered Incentive Spirometry [RT Incentive Spirometry] [RC] Care 07/14/21 18:26 Ordered Q2HWA Oxygen Therapy [RC] PRN Care 07/14/21 18:26 Ordered RT Aerosol Therapy [RC] ASDIRECTED Care 07/14/21 18:26 Ordered Up With Assistance [RC] ASDIRECTED Care 07/14/21 18:26 Ordered VTE/DVT Education [RC] PER UNIT ROUTINE Care 07/14/21 18:26 Ordered Vital Signs [RC] QSHIFT Care 07/14/21 18:30 Ordered Consult to Occupational Therapy [OT Evaluation and Cons 07/14/21 18:26 Ordered Treatment] [CONS] Routine PT Evaluation and Treatment [CONS] Routine Cons 07/14/21 18:26 Ordered Regular Diet [DIET] Diet 07/14/21 Dinner Ordered Acetaminophen [Tylenol Extra Strength] Med 07/15/21 00:00 Ordered 500 mg PO Q8H Albuterol/Ipratropium [DuoNeb 3.0-0.5 MG/3 ML] Med 07/14/21 18:26 Ordered 3 ml NEB Q2H PRN Aspirin Med 07/15/21 12:00 Ordered 81 mg PO DAILY@1200 Clopidogrel [Plavix] Med 07/15/21 12:00 Ordered 75 mg PO DAILY@1200 Finasteride [Proscar] Med 07/15/21 12:00 Ordered 5 mg PO DAILY@1200 Furosemide [Lasix] Med 07/15/21 08:00 Ordered 60 mg PO DAILY@0800 Levothyroxine [Synthroid] Med 07/15/21 06:00 Ordered 88 mcg PO ACBREAKFAST atorvaSTATin [Lipitor] Med 07/14/21 21:00 Ordered 40 mg PO BEDTIME carvediloL [Coreg] Med 07/14/21 21:00 Ordered 12.5 mg PO BID@1200,2100 lisinopriL [Prinivil] Med 07/15/21 12:00 Ordered 5 mg PO DAILY@1200 Code Status [Resuscitation Status] Routine Resus Stat 07/14/21 18:30 Ordered Medication Orders Acetaminophen (Acetaminophen 500 Mg Tab) 500 mg PO Q8H IRAJ Albuterol/Ipratropium (Albuterol/Ipratropium 3.0-0.5 Mg/3 Ml Neb Soln) 3 ml NEB Q2H PRN PRN Reason: sob Aspirin (Aspirin 81 Mg Tab.Chew) 81 mg PO DAILY@1200 [facility] Atorvastatin Calcium (Atorvastatin 20 Mg Tab) 40 mg PO BEDTIME [facility] Carvedilol (Carvedilol 25 Mg Tab) 12.5 mg PO BID@1200,2100 [facility] Clopidogrel Bisulfate (Clopidogrel 75 Mg Tab) 75 mg PO DAILY@1200 [facility] Finasteride (Finasteride 5 Mg Tab) 5 mg PO DAILY@1200 [facility] Furosemide (Furosemide 40 Mg Tab) 60 mg PO DAILY@0800 [facility] Levothyroxine Sodium (Levothyroxine 88 Mcg Tab) 88 mcg PO ACBREAKFAST [facility] Lisinopril (Lisinopril 5 Mg Tab) 5 mg PO DAILY@1200 [facility] Assessment/Plan Comment:: Acute respiratory failure with hypoxia: resolving - O2 sats <90% at [place] prior to admit. - possible PE given elevated d dime but no chest pain, tachycardia or DVT on BLE US, likely ruled out - possibly secondary to anemia - currently maintaining saturations >90% on room air plan: - incentive spirometer acute anemia, severe and symptomatic. anemia of chronic kidney disease - admit Hgb 9.8. Hgb 7.6 on 07/11 for which he was transfused 2U PRBC given hx of severe multivessel CAD - current hgb 9.6 and steadily up trending - PCP to continue work - up for etiology as outpatient. Generalized weakness/ physical deconditioning, subacute: - symptoms present for weeks to months but slowly worsening. likely multifactorial and secondary to age and multiple chronic comorbid conditions. - PT / OT consulted and following. - Pt will benefit from short term swing bed or SNF stay to regain strength and mobility prior to discharging home. Chronic conditions: Chronic systolic heart failure NYHA class 2-3. LVEF 20-25% in 12/2020. Home lasix to continue. CAD. Severe, multivessel disease noted on angiogram 12/27/20; medication-based management was advised. Dual antiplatelets on regimen. CKD stage 4. Nephro referral outpatient can be considered. COPD. Budesonide neb BID and duoneb TID used while inpatient. Cognitive impairment. Family mentioned chronic short-term memory difficulty on discussion on 07/10; outpatient detailed eval can be advised. DVT px: heparin subcu Code: DNR
[2021-07-14] MEDS: atorvaSTATin 20 MG Tab PO SCH (20:58)
[2021-07-14] MEDS: Carvedilol 25 MG Tab PO SCH (20:59)
[2021-07-14] MEDS: diphenhydrAMINE 25 MG Tab PO PRN (21:53)
[2021-07-14] MEDS: Acetaminophen 500 MG Tab PO SCH (23:06)
[2021-07-15] MEDS: Levothyroxine 88 MCG Tab PO SCH (05:06)
[2021-07-15] MEDS: Acetaminophen 500 MG Tab PO SCH ×2 (08:10→16:28)
[2021-07-15] MEDS: Furosemide 40 MG Tab PO SCH (08:11)
[2021-07-15] MEDS: Finasteride 5 MG Tab PO SCH (12:19)
[2021-07-15] MEDS: Carvedilol 25 MG Tab PO SCH ×2 (12:19→21:04)
[2021-07-15] MEDS: Clopidogrel 75 MG Tab PO SCH (12:19)
[2021-07-15] MEDS: Lisinopril 5 MG Tab PO SCH (12:19)
[2021-07-15] MEDS: Aspirin 81 MG Tab.Chew PO SCH (12:20)
[2021-07-15] MEDS ORDERED: Polyethylene Glycol 3350 Powder 17 GM Packet PO PRN (21:00)
[2021-07-15] MEDS: atorvaSTATin 20 MG Tab PO SCH (21:04)
[2021-07-15] MEDS: diphenhydrAMINE 25 MG Tab PO PRN (21:06)
[2021-07-16] MEDS: Acetaminophen 500 MG Tab PO SCH ×3 (01:26→16:16)
[2021-07-16] MEDS: Levothyroxine 88 MCG Tab PO SCH (06:00)
[2021-07-16] MEDS: Furosemide 40 MG Tab PO SCH (08:14)
[2021-07-16] MEDS: Carvedilol 25 MG Tab PO SCH ×2 (11:54→20:31)
[2021-07-16] MEDS: Finasteride 5 MG Tab PO SCH (11:54)
[2021-07-16] MEDS: Lisinopril 5 MG Tab PO SCH (11:54)
[2021-07-16] MEDS: Aspirin 81 MG Tab.Chew PO SCH (11:54)
[2021-07-16] MEDS: Clopidogrel 75 MG Tab PO SCH (11:54)
[2021-07-16] MEDS: atorvaSTATin 20 MG Tab PO SCH (20:31)
[2021-07-17] MEDS: Acetaminophen 500 MG Tab PO SCH ×4 (00:03→23:57)
[2021-07-17] MEDS: Levothyroxine 88 MCG Tab PO SCH (06:50)
[2021-07-17] MEDS: Furosemide 40 MG Tab PO SCH (08:33)
[2021-07-17] MEDS: Aspirin 81 MG Tab.Chew PO SCH (12:09)
[2021-07-17] MEDS: Clopidogrel 75 MG Tab PO SCH (12:11)
[2021-07-17] MEDS: Lisinopril 5 MG Tab PO SCH (12:11)
[2021-07-17] MEDS: Finasteride 5 MG Tab PO SCH (12:11)
[2021-07-17] MEDS: Carvedilol 25 MG Tab PO SCH ×2 (12:12→20:18)
[2021-07-17] MEDS: diphenhydrAMINE 25 MG Tab PO PRN (20:18)
[2021-07-17] MEDS: atorvaSTATin 20 MG Tab PO SCH (20:18)
[2021-07-18] MEDS: Levothyroxine 88 MCG Tab PO SCH (05:55)
[2021-07-18] MEDS: Acetaminophen 500 MG Tab PO SCH ×2 (08:44→16:22)
[2021-07-18] MEDS: Furosemide 40 MG Tab PO SCH (08:45)
[2021-07-18] MEDS: Finasteride 5 MG Tab PO SCH (12:03)
[2021-07-18] MEDS: Lisinopril 5 MG Tab PO SCH (12:04)
[2021-07-18] MEDS: Clopidogrel 75 MG Tab PO SCH (12:04)
[2021-07-18] MEDS: Carvedilol 25 MG Tab PO SCH ×2 (12:04→20:48)
[2021-07-18] MEDS: Aspirin 81 MG Tab.Chew PO SCH (12:04)
[2021-07-18] MEDS: atorvaSTATin 20 MG Tab PO SCH (20:49)
[2021-07-18] MEDS: diphenhydrAMINE 25 MG Tab PO PRN (20:50)
[2021-07-19] MEDS: Acetaminophen 500 MG Tab PO SCH ×3 (00:11→15:24)
[2021-07-19] MEDS: Levothyroxine 88 MCG Tab PO SCH (05:52)
[2021-07-19] MEDS: Furosemide 40 MG Tab PO SCH (08:10)
[2021-07-19] MEDS: Finasteride 5 MG Tab PO SCH (11:53)
[2021-07-19] MEDS: Carvedilol 25 MG Tab PO SCH ×2 (11:53→20:41)
[2021-07-19] MEDS: Lisinopril 5 MG Tab PO SCH (11:54)
[2021-07-19] MEDS: Clopidogrel 75 MG Tab PO SCH (11:54)
[2021-07-19] MEDS: Aspirin 81 MG Tab.Chew PO SCH (11:55)
[2021-07-19] MEDS: atorvaSTATin 20 MG Tab PO SCH (20:41)
[2021-07-19] MEDS: diphenhydrAMINE 25 MG Tab PO PRN (20:41)
[2021-07-20] MEDS: Acetaminophen 500 MG Tab PO SCH ×3 (00:01→16:12)
[2021-07-20] MEDS: Levothyroxine 88 MCG Tab PO SCH (05:07)
[2021-07-20] MEDS: Furosemide 40 MG Tab PO SCH (08:09)
[2021-07-20] MEDS: Aspirin 81 MG Tab.Chew PO SCH (12:06)
[2021-07-20] MEDS: Finasteride 5 MG Tab PO SCH (12:06)
[2021-07-20] MEDS: Carvedilol 25 MG Tab PO SCH ×2 (12:06→20:37)
[2021-07-20] MEDS: Clopidogrel 75 MG Tab PO SCH (12:06)
[2021-07-20] MEDS: Lisinopril 5 MG Tab PO SCH (12:07)
[2021-07-20] MEDS: atorvaSTATin 20 MG Tab PO SCH (20:38)
[2021-07-20] MEDS: diphenhydrAMINE 25 MG Tab PO PRN (22:47)
[2021-07-21] MEDS: Acetaminophen 500 MG Tab PO SCH ×5 (01:40→23:05)
[2021-07-21] MEDS: Levothyroxine 88 MCG Tab PO SCH (06:28)
[2021-07-21 08:52] LABS: ANION GAP 11.7 mEq/L (7-13)
[2021-07-21] MEDS: Furosemide 40 MG Tab PO SCH (10:59)
[2021-07-21] MEDS: Aspirin 81 MG Tab.Chew PO SCH (12:44)
[2021-07-21] MEDS: Finasteride 5 MG Tab PO SCH (12:44)
[2021-07-21] MEDS: Carvedilol 25 MG Tab PO SCH ×2 (12:44→20:36)
[2021-07-21] MEDS: Clopidogrel 75 MG Tab PO SCH (12:45)
[2021-07-21] MEDS: Lisinopril 5 MG Tab PO SCH (12:45)
[2021-07-21] MEDS ORDERED: Calcium Carbonate 500 MG Tab.Chew PO PRN (16:54)
[2021-07-21] MEDS: atorvaSTATin 20 MG Tab PO SCH (20:36)
[2021-07-21] MEDS: diphenhydrAMINE 25 MG Tab PO PRN (22:57)
[2021-07-22] MEDS: Levothyroxine 88 MCG Tab PO SCH (06:09)
[2021-07-22] MEDS: Acetaminophen 500 MG Tab PO SCH ×3 (08:05→23:24)
[2021-07-22] MEDS: Furosemide 40 MG Tab PO SCH (08:07)
[2021-07-22] MEDS: Lisinopril 5 MG Tab PO SCH (11:39)
[2021-07-22] MEDS: Aspirin 81 MG Tab.Chew PO SCH (11:39)
[2021-07-22] MEDS: Clopidogrel 75 MG Tab PO SCH (11:40)
[2021-07-22] MEDS: Finasteride 5 MG Tab PO SCH (11:40)
[2021-07-22] MEDS: Carvedilol 25 MG Tab PO SCH ×2 (11:41→20:55)
[2021-07-22] MEDS: atorvaSTATin 20 MG Tab PO SCH (20:55)
[2021-07-22] MEDS: diphenhydrAMINE 25 MG Tab PO PRN (20:55)
[2021-07-23] MEDS: Levothyroxine 88 MCG Tab PO SCH (05:19)
[2021-07-23] MEDS: Furosemide 40 MG Tab PO SCH (10:17)
[2021-07-23] MEDS: Acetaminophen 500 MG Tab PO SCH ×2 (10:19→15:27)
[2021-07-23] MEDS: Aspirin 81 MG Tab.Chew PO SCH (15:19)
[2021-07-23] MEDS: Finasteride 5 MG Tab PO SCH (15:19)
[2021-07-23] MEDS: Lisinopril 5 MG Tab PO SCH (15:20)
[2021-07-23] MEDS: Clopidogrel 75 MG Tab PO SCH (15:20)
[2021-07-23] MEDS: Carvedilol 25 MG Tab PO SCH ×2 (15:26→20:15)
[2021-07-23] MEDS: diphenhydrAMINE 25 MG Tab PO PRN (20:15)
[2021-07-23] MEDS: atorvaSTATin 20 MG Tab PO SCH (20:15)
[2021-07-24] MEDS: Acetaminophen 500 MG Tab PO SCH ×2 (00:49→08:50)
[2021-07-24] MEDS: Levothyroxine 88 MCG Tab PO SCH (06:42)
[2021-07-24] MEDS: Furosemide 40 MG Tab PO SCH (08:50)
--- NOTE | 2021-07-24 11:13 | PCM.DCSUM1 ---
Discharge Summary - Hospital Course Free Text/Narrative:: Alan is an 85 yo man with PMH significant for CHF, DMII, CKD and dementia. He was seen at the [place] clinic on 07/08 at which time he was noted to be complaining of increased shortness of breath. per pt report he had a cold the previous week and a headache (pressure in front of head) and shortness of breath. The [place] provider reported that the patient had an oxygen saturation < 90%. While in the ED he had oxygen saturations >80% and was hemodynamically stable. He was admitted to the hospital for monitoring. he was found to be extremely weak and deconditioned. PT/OT recommended discharge to swing bed to continue to work on regaining strength and mobility. He was thought to be medically stable for discharge to the swing bed on 07/14/21. There were no further questions or concerns at the time of discharge. Patient was admitted for further evaluation. For his acute hypoxic respiratory failure this resolved with no interventions. For his acute anemia hemoglobin improved and remained stable. Recommend follow-up with PCP as outpatient to further work-up possible etiology. Generalized weakness and physical deconditioning PT and OT were consulted and patient will benefit from continued PT and OT and other home health services. Continued patient's wound Lasix and continued his dual endplate medications for CAD. For CKD stage IV this was stable and recommend discussion with primary care physician about possible nephrology referral outpatient. Again for his cognitive impairment recommend outpatient discussion and management and evaluation. Patient is medically stable for discharge to home with home health. - Discharge Data Discharge Date: 07/24/21 Discharge Disposition: Home, W Home Health Agency 06 Condition: Good - Referral to Home Health Date of Face to Face Encounter: 07/24/21 Reason for Homebound Status: CAD, CKD stage IV, cognitive impairment Primary Care Physician: PCP None Skilled Need: Home health including nursing, PT and OT - Patient Summary/Data Consults: Consultations 07/14/21 18:26 Consult to Occupational Therapy [OT Evaluation and Treatment] [CONS] Routine PT Evaluation and Treatment [CONS] Routine - Patient Instructions Diet: Heart Healthy Diet Fluid Restriction: 2000 mL - Discharge Plan *PRESCRIPTION DRUG MONITORING PROGRAM REVIEWED*: Not Applicable *COPY OF PRESCRIPTION DRUG MONITORING REPORT IN PATIENT ANDREW: Not Applicable Prescriptions/Med Rec: atorvaSTATin [Lipitor] 40 mg PO BEDTIME #30 tablet Home Medications: Home Meds Albuterol [Ventolin HFA] 2 puff INH Q6H PRN 07/08/21 [History] Aspirin 81 mg PO 1200 07/08/21 [History] Cetirizine HCl [All Day Allergy Relief] 5 mg PO 1200 07/08/21 [History] Clopidogrel Bisulfate [Plavix] 75 mg PO 1200 07/08/21 [History] Finasteride [Proscar] 5 mg PO 1200 07/08/21 [History] Fluticasone Propionate [24 Hour Allergy] 1 spray NS DAILY 07/08/21 [History] Furosemide 60 mg PO DAILY@0800 07/08/21 [History] Levothyroxine Sodium [Levothyroxine] 88 mcg PO DAILY 07/08/21 [History] Potassium Chloride 10 meq PO DAILY 07/08/21 [History] carvediloL [Carvedilol] 12.5 mg PO BID 07/08/21 [History] lisinopriL [Lisinopril] 5 mg PO 1200 07/08/21 [History] Acetaminophen [Tylenol Extra Strength] 500 mg PO Q8H tablet 07/14/21 [Rx] Albuterol/Ipratropium [DuoNeb 3.0-0.5 MG/3 ML] 3 ml NEB Q2H PRN neb 07/14/21 [Rx] atorvaSTATin [Lipitor] 40 mg PO BEDTIME tablet 07/14/21 [Rx] atorvaSTATin [Lipitor] 40 mg PO BEDTIME #30 tablet 07/24/21 [Rx] - Discharge Summary/Plan Comment DC Time >30 min.: Yes Total # of Minutes for Discharge Time: 30 minutes - Patient Data Vitals - Most Recent: Last Vital Signs Temp 98.6 F 07/24/21 08:54 Pulse 67 07/24/21 08:54 Resp 20 07/24/21 08:54 BP 138/55 L 07/24/21 08:54 Pulse Ox 98 07/24/21 08:54 Weight - Most Recent: 163 lb 6.4 oz I&O - Last 24 hours: Intake & Output 07/23/21 07/24/21 07/24/21 22:59 06:59 14:59 Intake Total 450 240 Balance 450 240 Med Orders - Current: Current Medications Acetaminophen (Acetaminophen 500 Mg Tab) 500 mg PO Q8H IRAJ Last Admin: 07/24/21 08:50 Dose: 500 mg Documented by: Albuterol/Ipratropium (Albuterol/Ipratropium 3.0-0.5 Mg/3 Ml Neb Soln) 3 ml NEB Q2H PRN PRN Reason: sob Aspirin (Aspirin 81 Mg Tab.Chew) 81 mg PO DAILY@1200 [facility] Last Admin: 07/23/21 15:19 Dose: 81 mg Documented by: Atorvastatin Calcium (Atorvastatin 20 Mg Tab) 40 mg PO BEDTIME [facility] Last Admin: 07/23/21 20:15 Dose: 40 mg Documented by: Calcium Carbonate/Glycine (Calcium Carbonate 500 Mg Tab.Chew) 500 mg PO Q2H PRN PRN Reason: Other Carvedilol (Carvedilol 25 Mg Tab) 12.5 mg PO BID@1200,2100 [facility] Last Admin: 07/23/21 20:15 Dose: 12.5 mg Documented by: Clopidogrel Bisulfate (Clopidogrel 75 Mg Tab) 75 mg PO DAILY@1200 [facility] Last Admin: 07/23/21 15:20 Dose: 75 mg Documented by: Diphenhydramine HCl (Diphenhydramine 25 Mg Tab) 25 mg PO BEDTIME PRN PRN Reason: Sleep Last Admin: 07/23/21 20:15 Dose: 25 mg Documented by: Finasteride (Finasteride 5 Mg Tab) 5 mg PO DAILY@1200 [facility] Last Admin: 07/23/21 15:19 Dose: 5 mg Documented by: Furosemide (Furosemide 40 Mg Tab) 60 mg PO DAILY@0800 [facility] Last Admin: 07/24/21 08:50 Dose: 60 mg Documented by: Levothyroxine Sodium (Levothyroxine 88 Mcg Tab) 88 mcg PO ACBREAKFAST [facility] Last Admin: 07/24/21 06:42 Dose: 88 mcg Documented by: Lisinopril (Lisinopril 5 Mg Tab) 5 mg PO DAILY@1200 [facility] Last Admin: 07/23/21 15:20 Dose: 5 mg Documented by: Polyethylene Glycol (Polyethylene Glycol 3350 Powder 17 Gm Packet) 17 gm PO BEDTIME PRN PRN Reason: Constipation
[2021-07-24] MEDS: Carvedilol 25 MG Tab PO SCH (12:23)
[2021-07-24] MEDS: Aspirin 81 MG Tab.Chew PO SCH (12:23)
[2021-07-24] MEDS: Lisinopril 5 MG Tab PO SCH (12:23)
[2021-07-24] MEDS: Clopidogrel 75 MG Tab PO SCH (12:23)
[2021-07-24] MEDS: Finasteride 5 MG Tab PO SCH (12:23)
[2021-07-24 12:24] VITALS: BP 139/60; PULSE 65
== END 2021-07-24 14:30 | disposition home health service (06) | DRG 948 ==
LOC: DL.MS 18:29
PROVIDERS: ADMIT Hospitalist; ATTEND Hospitalist
DX: R53.81 Other malaise (principal); I13.0 Hypertensive heart and chronic kidney disease with heart failure and stage 1 through stage 4 chronic kidney disease, or unspecified chronic kidney disease; N18.4 Chronic kidney disease, stage 4 (severe); I50.22 Chronic systolic (congestive) heart failure; E11.22 Type 2 diabetes mellitus with diabetic chronic kidney disease; E78.00 Pure hypercholesterolemia, unspecified; J44.9 Chronic obstructive pulmonary disease, unspecified; E03.9 Hypothyroidism, unspecified; H54.7 Unspecified visual loss; M19.90 Unspecified osteoarthritis, unspecified site; F03.90 Unspecified dementia, unspecified severity, without behavioral disturbance, psychotic disturbance, mood disturbance, and anxiety; Z66 Do not resuscitate; D63.1 Anemia in chronic kidney disease; I25.2 Old myocardial infarction; Z79.82 Long term (current) use of aspirin; Z79.890 Hormone replacement therapy; Z79.899 Other long term (current) drug therapy
CPT/HCPCS: 36415; 80048; 85027; 97110-GO; 97110-GP; 97116-GP; 97161-GP; 97165-GO; 97530-GO; 97535-GO; A9270-GY

== ENCOUNTER 2021-08-28 21:24 | Emergency (ER) | payer OTHER, MEDICARE ==
[2021-08-28 23:07] LABS: ANION GAP 16.3 mEq/L (7-13); CHLORIDE,CL 108 mmol/L (98-107); SODIUM,NA 140 mmol/L (136-145)
[2021-08-29 00:13] VITALS: BP 117/50; PULSE 86
[2021-08-29 01:06] LABS: CORONAVIRUS COVID-19 NAA NEGATIVE (NEGATIVE)
== END 2021-08-29 00:20 ==
LOC: DL.ED 21:24
DX: K92.2 Gastrointestinal hemorrhage, unspecified (principal); I11.0 Hypertensive heart disease with heart failure; I50.9 Heart failure, unspecified; D64.9 Anemia, unspecified; I25.810 Atherosclerosis of coronary artery bypass graft(s) without angina pectoris; E78.00 Pure hypercholesterolemia, unspecified; I25.2 Old myocardial infarction; J44.9 Chronic obstructive pulmonary disease, unspecified; M19.90 Unspecified osteoarthritis, unspecified site; E11.9 Type 2 diabetes mellitus without complications; E03.9 Hypothyroidism, unspecified; I44.7 Left bundle-branch block, unspecified; Z79.82 Long term (current) use of aspirin; Z79.02 Long term (current) use of antithrombotics/antiplatelets; Z79.899 Other long term (current) drug therapy; Z20.822 Contact with and (suspected) exposure to COVID-19
CPT/HCPCS: 0240U; 36415; 36430; 71045; 80053; 82150; 82272; 83690; 83880; 84484; 85025; 86850; 86900; 86901; 86920; 86922; 93005; 99285; P9016

== ENCOUNTER 2021-12-24 14:12 | Inpatient (IN) | payer OTHER, MEDICARE ==
[2021-12-24 15:28] LABS: ANION GAP 12.4 mEq/L (7-13); CHLORIDE,CL 101 mmol/L (98-107); SODIUM,NA 135 mmol/L (136-145)
[2021-12-24] MEDS ORDERED: Furosemide 100 MG/10 ML SDV IVPUSH ONE (15:32)
[2021-12-24 15:39] LABS: CORONAVIRUS COVID-19 NAA NEGATIVE (NEGATIVE); RESPIRATORY SYNCYTIAL VIR NAA NEGATIVE (NEGATIVE)
[2021-12-24] MEDS ORDERED: Magnesium Hydroxide 400 MG/5 ML Susp 30 ML Cup PO PRN (18:17)
[2021-12-24] MEDS ORDERED: Docusate Sodium 100 MG Cap PO PRN (18:17)
[2021-12-24] MEDS ORDERED: Ondansetron 4 MG/2 ML SDV IVPUSH PRN (18:17)
[2021-12-24] MEDS ORDERED: Acetaminophen 325 MG Tab PO PRN (18:17)
[2021-12-24] MEDS ORDERED: Albuterol/Ipratropium 3.0-0.5 MG/3 ML Neb Soln NEB PRN (18:17)
[2021-12-24] MEDS ORDERED: Polyethylene Glycol 3350 Powder 17 GM Packet PO PRN (18:17)
[2021-12-24] MEDS ORDERED: Bisacodyl 5 MG Tab PO PRN (18:17)
[2021-12-24] MEDS ORDERED: HYDROmorphone 0.5 MG/0.5 ML Syringe IVPUSH PRN (18:17)
[2021-12-24] MEDS ORDERED: guaiFENesin/Dextromethorphan 100-10 MG/5 ML Soln 5 ML Cup PO PRN (18:21)
[2021-12-24] MEDS ORDERED: Melatonin 3 MG Tab PO PRN (18:31)
[2021-12-24] MEDS: atorvaSTATin 20 MG Tab PO SCH (20:34)
[2021-12-24] MEDS ORDERED: hydrALAZINE 20 MG/ML SDV IVPUSH PRN (22:09)
[2021-12-25] MEDS ORDERED: Fluticasone NASAL Spray 16 GM Bottle NASBOTH SCH (09:00)
[2021-12-25] MEDS ORDERED: Polyethylene Glycol 3350 Powder 17 GM Packet PO PRN (11:26)
[2021-12-25] MEDS ORDERED: Lidocaine 2% Jelly 5 ML Tube TOP PRN (11:26)
[2021-12-25] MEDS ORDERED: Nitroglycerin 0.4 MG Tab.SL SL PRN (11:26)
[2021-12-25] MEDS ORDERED: Fluticasone NASAL Spray 16 GM Bottle NAS PRN (11:26)
[2021-12-25] MEDS: Acetaminophen/HYDROcodone 325-5 MG Tab PO PRN (12:50)
[2021-12-25] MEDS: Finasteride 5 MG Tab PO SCH (12:50)
[2021-12-25] MEDS ORDERED: Non-Formulary Medication 1 Each (Atorvastatin Calcium [Atorvastatin Calcium] 80 MG Tablet) PO SCH (21:00)
[2021-12-25] MEDS: atorvaSTATin 20 MG Tab PO SCH (22:16)
[2021-12-25] MEDS: Acetaminophen 325 MG Tab PO PRN (23:04)
[2021-12-26] MEDS: Acetaminophen/HYDROcodone 325-5 MG Tab PO PRN ×3 (02:44→20:08)
[2021-12-26] MEDS: Levothyroxine 88 MCG Tab PO SCH (05:25)
[2021-12-26 06:26] LABS: ANION GAP 11.6 mEq/L (7-13)
[2021-12-26] MEDS: Azithromycin 500 MG in Sodium Chloride 0.9% 250 ML IV SCH (08:09)
[2021-12-26] MEDS: Aspirin 81 MG Tab.EC PO SCH (08:54)
[2021-12-26] MEDS ORDERED: [UNRECOGNIZED DRUG - REMARK] PO SCH (09:00)
[2021-12-26] MEDS ORDERED: Finasteride 5 MG Tab PO SCH (09:00)
[2021-12-26] MEDS ORDERED: Sodium Chloride 0.9% 1,000 ML IV SCH (10:30)
[2021-12-26] MEDS: Finasteride 5 MG Tab PO SCH (11:51)
[2021-12-26] MEDS: atorvaSTATin 20 MG Tab PO SCH (20:07)
[2021-12-26] MEDS ORDERED: Ziprasidone Mesylate 20 MG Vial IM PRN (21:46)
[2021-12-26] MEDS ORDERED: Melatonin 3 MG Tab PO PRN (21:46)
[2021-12-26] MEDS: Melatonin 3 MG Tab PO PRN (23:27)
[2021-12-26] MEDS ORDERED: Water For Injection, Sterile 20 ML ONE (23:41)
[2021-12-26] MEDS: Ziprasidone Mesylate 20 MG Vial IM PRN (23:47)
[2021-12-27] MEDS: Levothyroxine 88 MCG Tab PO SCH (05:01)
[2021-12-27] MEDS: Acetaminophen/HYDROcodone 325-5 MG Tab PO PRN ×2 (05:02→23:57)
[2021-12-27 06:36] LABS: ANION GAP 8.7 mEq/L (7-13)
[2021-12-27] MEDS: Azithromycin 500 MG in Sodium Chloride 0.9% 250 ML IV SCH (08:40)
[2021-12-27] MEDS: Aspirin 81 MG Tab.EC PO SCH (08:41)
[2021-12-27] MEDS: Loratadine 10 MG Tab PO SCH (12:45)
[2021-12-27] MEDS: Finasteride 5 MG Tab PO SCH (12:45)
[2021-12-27] MEDS ORDERED: Sodium Chloride 0.9% 1,000 ML IV SCH (19:30)
[2021-12-27] MEDS: guaiFENesin 100 MG/5 ML Soln 5 ML UD Cup PO PRN (21:32)
[2021-12-27] MEDS: Acetaminophen 325 MG Tab PO PRN (21:32)
[2021-12-27] MEDS: atorvaSTATin 20 MG Tab PO SCH (21:33)
[2021-12-27] MEDS: Melatonin 3 MG Tab PO PRN (21:33)
[2021-12-28] MEDS: Ziprasidone Mesylate 20 MG Vial IM PRN (01:58)
[2021-12-28] MEDS: Azithromycin 500 MG in Sodium Chloride 0.9% 250 ML IV SCH (06:33)
[2021-12-28] MEDS: Levothyroxine 88 MCG Tab PO SCH (07:36)
[2021-12-28] MEDS: guaiFENesin 100 MG/5 ML Soln 5 ML UD Cup PO PRN (08:27)
[2021-12-28] MEDS: Aspirin 81 MG Tab.EC PO SCH (08:28)
[2021-12-28 10:47] LABS: ANION GAP 10.7 mEq/L (7-13)
[2021-12-28] MEDS ORDERED: Sodium Polystyrene Sulfonate 15 GM/60 ML Susp 60 ML Bot PO ONE (11:09)
[2021-12-28] MEDS: Finasteride 5 MG Tab PO SCH (12:00)
[2021-12-28 18:42] LABS: ANION GAP 12.1 mEq/L (7-13)
[2021-12-28] MEDS: atorvaSTATin 20 MG Tab PO SCH (21:45)
[2021-12-28] MEDS: Melatonin 3 MG Tab PO PRN (21:46)
[2021-12-28] MEDS: Acetaminophen/HYDROcodone 325-5 MG Tab PO PRN (21:46)
[2021-12-29] MEDS: Acetaminophen 325 MG Tab PO PRN (04:23)
[2021-12-29] MEDS: Levothyroxine 88 MCG Tab PO SCH (06:29)
[2021-12-29 07:12] LABS: ANION GAP 11.9 mEq/L (7-13)
[2021-12-29] MEDS: Azithromycin 500 MG in Sodium Chloride 0.9% 250 ML IV SCH (07:27)
[2021-12-29] MEDS: Aspirin 81 MG Tab.EC PO SCH (08:54)
[2021-12-29] MEDS: Loratadine 10 MG Tab PO SCH (12:18)
[2021-12-29] MEDS: Finasteride 5 MG Tab PO SCH (12:18)
[2021-12-29] MEDS: Acetaminophen/HYDROcodone 325-5 MG Tab PO PRN (21:19)
[2021-12-29] MEDS: atorvaSTATin 20 MG Tab PO SCH (21:19)
[2021-12-29] MEDS: Melatonin 3 MG Tab PO PRN (21:21)
[2021-12-29] MEDS ORDERED: Water For Injection, Sterile 20 ML ONE (23:14)
[2021-12-29] MEDS: Ziprasidone Mesylate 20 MG Vial IM PRN (23:23)
[2021-12-30] MEDS: Levothyroxine 88 MCG Tab PO SCH (05:17)
[2021-12-30] MEDS ORDERED: Hydrochlorothiazide 25 MG Tab PO SCH (09:00)
[2021-12-30] MEDS: Aspirin 81 MG Tab.EC PO SCH (09:06)
[2021-12-30] MEDS ORDERED: Furosemide 20 MG Tab PO SCH (12:00)
[2021-12-30] MEDS: Finasteride 5 MG Tab PO SCH (13:04)
[2021-12-30] MEDS: Furosemide 40 MG Tab PO SCH ×2 (13:04→17:14)
[2021-12-30] MEDS: Heparin Sodium 5,000 Units/ML Vial SUBCUT SCH ×2 (14:41→22:13)
[2021-12-30] MEDS: Carvedilol 3.125 MG Tab PO SCH (17:14)
[2021-12-30] MEDS: atorvaSTATin 20 MG Tab PO SCH (22:12)
[2021-12-30] MEDS: Melatonin 3 MG Tab PO PRN (22:22)
[2021-12-31] MEDS: Heparin Sodium 5,000 Units/ML Vial SUBCUT SCH ×3 (05:16→21:48)
[2021-12-31] MEDS: Levothyroxine 88 MCG Tab PO SCH (05:16)
[2021-12-31 07:05] LABS: ANION GAP 13.5 mEq/L (7-13)
[2021-12-31] MEDS ORDERED: Potassium Chloride 10 MEQ Tab.ER PO SCH (08:00)
[2021-12-31] MEDS: Aspirin 81 MG Tab.EC PO SCH (08:30)
[2021-12-31] MEDS: Furosemide 40 MG Tab PO SCH ×2 (08:30→14:18)
[2021-12-31] MEDS: Carvedilol 3.125 MG Tab PO SCH ×2 (08:30→17:34)
[2021-12-31] MEDS: Loratadine 10 MG Tab PO SCH (12:46)
[2021-12-31] MEDS: Finasteride 5 MG Tab PO SCH (12:46)
[2021-12-31] MEDS: atorvaSTATin 20 MG Tab PO SCH (21:49)
[2021-12-31] MEDS: Melatonin 3 MG Tab PO PRN (21:49)
[2022-01-01] MEDS: Levothyroxine 88 MCG Tab PO SCH (05:17)
[2022-01-01] MEDS: Heparin Sodium 5,000 Units/ML Vial SUBCUT SCH ×3 (05:19→21:08)
[2022-01-01] MEDS: Aspirin 81 MG Tab.EC PO SCH (08:01)
[2022-01-01] MEDS: Carvedilol 3.125 MG Tab PO SCH ×2 (08:02→17:19)
[2022-01-01] MEDS: Furosemide 40 MG Tab PO SCH ×2 (08:02→14:53)
[2022-01-01] MEDS: Lisinopril 5 MG Tab PO SCH (11:32)
[2022-01-01] MEDS: Finasteride 5 MG Tab PO SCH (11:32)
[2022-01-01] MEDS: atorvaSTATin 20 MG Tab PO SCH (20:28)
[2022-01-01] MEDS: Melatonin 3 MG Tab PO PRN (21:09)
[2022-01-02 05:48] LABS: ANION GAP 12.2 mEq/L (7-13)
[2022-01-02] MEDS: Levothyroxine 88 MCG Tab PO SCH (06:08)
[2022-01-02] MEDS: Heparin Sodium 5,000 Units/ML Vial SUBCUT SCH ×3 (06:08→21:40)
[2022-01-02] MEDS: Aspirin 81 MG Tab.EC PO SCH (08:39)
[2022-01-02] MEDS: Furosemide 40 MG Tab PO SCH ×2 (08:40→13:51)
[2022-01-02] MEDS: Carvedilol 3.125 MG Tab PO SCH ×2 (08:41→17:47)
[2022-01-02] MEDS: Lisinopril 5 MG Tab PO SCH (08:41)
[2022-01-02] MEDS: Finasteride 5 MG Tab PO SCH (11:32)
[2022-01-02] MEDS: Loratadine 10 MG Tab PO SCH (11:32)
[2022-01-02] MEDS: Acetaminophen 325 MG Tab PO PRN (21:38)
[2022-01-02] MEDS: atorvaSTATin 20 MG Tab PO SCH (21:39)
[2022-01-02] MEDS: Melatonin 3 MG Tab PO PRN (21:39)
[2022-01-02] MEDS: Acetaminophen/HYDROcodone 325-5 MG Tab PO PRN (23:46)
[2022-01-03] MEDS: Levothyroxine 88 MCG Tab PO SCH (05:44)
[2022-01-03] MEDS: Heparin Sodium 5,000 Units/ML Vial SUBCUT SCH ×3 (05:45→21:09)
[2022-01-03] MEDS: Furosemide 40 MG Tab PO SCH ×2 (08:23→13:29)
[2022-01-03] MEDS: Aspirin 81 MG Tab.EC PO SCH (08:23)
[2022-01-03] MEDS: Lisinopril 5 MG Tab PO SCH (08:24)
[2022-01-03] MEDS: Carvedilol 3.125 MG Tab PO SCH ×2 (08:24→18:06)
[2022-01-03] MEDS: Finasteride 5 MG Tab PO SCH (13:29)
[2022-01-03] MEDS: Melatonin 3 MG Tab PO PRN (21:06)
[2022-01-03] MEDS: atorvaSTATin 20 MG Tab PO SCH (21:08)
[2022-01-03] MEDS: Acetaminophen 325 MG Tab PO PRN (21:09)
[2022-01-04] MEDS: Levothyroxine 88 MCG Tab PO SCH (05:30)
[2022-01-04] MEDS: Heparin Sodium 5,000 Units/ML Vial SUBCUT SCH ×3 (05:31→21:32)
[2022-01-04] MEDS: Carvedilol 3.125 MG Tab PO SCH ×2 (08:18→17:20)
[2022-01-04] MEDS: Furosemide 40 MG Tab PO SCH ×2 (08:20→14:46)
[2022-01-04] MEDS: Lisinopril 5 MG Tab PO SCH (08:20)
[2022-01-04] MEDS: Aspirin 81 MG Tab.EC PO SCH (08:20)
[2022-01-04] MEDS: Finasteride 5 MG Tab PO SCH (11:34)
[2022-01-04] MEDS: Loratadine 10 MG Tab PO SCH (11:35)
[2022-01-04] MEDS: atorvaSTATin 20 MG Tab PO SCH (20:05)
[2022-01-05] MEDS: Levothyroxine 88 MCG Tab PO SCH (05:46)
[2022-01-05] MEDS: Heparin Sodium 5,000 Units/ML Vial SUBCUT SCH ×3 (05:46→21:11)
[2022-01-05 07:19] LABS: ANION GAP 12.9 mEq/L (7-13)
[2022-01-05] MEDS: Carvedilol 3.125 MG Tab PO SCH ×2 (07:58→17:50)
[2022-01-05] MEDS: Furosemide 40 MG Tab PO SCH ×2 (07:59→13:50)
[2022-01-05] MEDS: Aspirin 81 MG Tab.EC PO SCH (08:00)
[2022-01-05] MEDS: Lisinopril 5 MG Tab PO SCH (08:00)
[2022-01-05] MEDS: Finasteride 5 MG Tab PO SCH (12:28)
[2022-01-05] MEDS: atorvaSTATin 20 MG Tab PO SCH (21:11)
[2022-01-05] MEDS: Melatonin 3 MG Tab PO PRN (21:33)
[2022-01-06] MEDS: Levothyroxine 88 MCG Tab PO SCH (06:03)
[2022-01-06] MEDS: Heparin Sodium 5,000 Units/ML Vial SUBCUT SCH ×3 (06:03→21:56)
[2022-01-06] MEDS: Aspirin 81 MG Tab.EC PO SCH (08:28)
[2022-01-06] MEDS: Carvedilol 3.125 MG Tab PO SCH ×2 (08:28→18:20)
[2022-01-06] MEDS: Lisinopril 5 MG Tab PO SCH (08:28)
[2022-01-06] MEDS: Furosemide 40 MG Tab PO SCH ×2 (08:28→14:46)
[2022-01-06] MEDS: Loratadine 10 MG Tab PO SCH (12:44)
[2022-01-06] MEDS: Sodium Chloride 0.9% 10 ML Syringe FLUSH PRN (12:44)
[2022-01-06] MEDS: Iron Sucrose Complex 100 MG/5 ML SDV IVPUSH SCH (12:44)
[2022-01-06] MEDS: Finasteride 5 MG Tab PO SCH (12:44)
[2022-01-06] MEDS: Metolazone 2.5 MG Tab PO SCH (12:44)
[2022-01-06] MEDS: atorvaSTATin 20 MG Tab PO SCH (21:54)
[2022-01-06] MEDS: Melatonin 3 MG Tab PO PRN (21:54)
[2022-01-07] MEDS: Acetaminophen/HYDROcodone 325-5 MG Tab PO PRN ×2 (01:40→21:19)
[2022-01-07] MEDS: Heparin Sodium 5,000 Units/ML Vial SUBCUT SCH ×3 (05:00→21:17)
[2022-01-07] MEDS: Levothyroxine 88 MCG Tab PO SCH (05:00)
[2022-01-07 06:41] LABS: ANION GAP 11.7 mEq/L (7-13)
[2022-01-07] MEDS: Metolazone 2.5 MG Tab PO SCH (08:55)
[2022-01-07] MEDS: Furosemide 40 MG Tab PO SCH ×2 (08:55→13:00)
[2022-01-07] MEDS: Aspirin 81 MG Tab.EC PO SCH (08:55)
[2022-01-07] MEDS: Iron Sucrose Complex 100 MG/5 ML SDV IVPUSH SCH (08:56)
[2022-01-07] MEDS: Lisinopril 5 MG Tab PO SCH (09:01)
[2022-01-07] MEDS: Carvedilol 3.125 MG Tab PO SCH ×2 (11:14→17:21)
[2022-01-07] MEDS: Finasteride 5 MG Tab PO SCH (13:00)
[2022-01-07] MEDS: atorvaSTATin 20 MG Tab PO SCH (21:17)
[2022-01-07] MEDS: Tamsulosin 0.4 MG Cap.ER PO SCH (21:17)
[2022-01-08] MEDS: Acetaminophen/HYDROcodone 325-5 MG Tab PO PRN ×2 (02:50→22:42)
[2022-01-08] MEDS: Levothyroxine 88 MCG Tab PO SCH (05:50)
[2022-01-08] MEDS: Acetaminophen 325 MG Tab PO PRN (05:50)
[2022-01-08] MEDS: Heparin Sodium 5,000 Units/ML Vial SUBCUT SCH ×3 (05:52→21:24)
[2022-01-08 06:06] LABS: ANION GAP 10.5 mEq/L (7-13)
[2022-01-08] MEDS: Carvedilol 3.125 MG Tab PO SCH ×2 (09:14→17:22)
[2022-01-08] MEDS: Lisinopril 5 MG Tab PO SCH (09:14)
[2022-01-08] MEDS: Aspirin 81 MG Tab.EC PO SCH (09:14)
[2022-01-08] MEDS: Furosemide 40 MG Tab PO SCH ×2 (09:15→14:13)
[2022-01-08] MEDS: Metolazone 2.5 MG Tab PO SCH (09:15)
[2022-01-08] MEDS: Iron Sucrose Complex 100 MG/5 ML SDV IVPUSH SCH (10:13)
[2022-01-08] MEDS: Loratadine 10 MG Tab PO SCH (12:20)
[2022-01-08] MEDS: Finasteride 5 MG Tab PO SCH (12:20)
[2022-01-08] MEDS: Tamsulosin 0.4 MG Cap.ER PO SCH (20:05)
[2022-01-08] MEDS: guaiFENesin 100 MG/5 ML Soln 5 ML UD Cup PO PRN (20:05)
[2022-01-08] MEDS: atorvaSTATin 20 MG Tab PO SCH (20:05)
[2022-01-08] MEDS: Sodium Chloride 0.9% 10 ML Syringe FLUSH PRN (20:06)
[2022-01-09] MEDS: Acetaminophen/HYDROcodone 325-5 MG Tab PO PRN ×2 (02:55→13:01)
[2022-01-09] MEDS: Heparin Sodium 5,000 Units/ML Vial SUBCUT SCH ×3 (05:19→21:01)
[2022-01-09] MEDS: Levothyroxine 88 MCG Tab PO SCH (05:19)
[2022-01-09 06:16] LABS: ANION GAP 13.5 mEq/L (7-13)
[2022-01-09] MEDS: Lisinopril 5 MG Tab PO SCH (08:07)
[2022-01-09] MEDS: Aspirin 81 MG Tab.EC PO SCH (08:08)
[2022-01-09] MEDS: Carvedilol 3.125 MG Tab PO SCH ×2 (08:09→18:16)
[2022-01-09] MEDS: Metolazone 2.5 MG Tab PO SCH (08:09)
[2022-01-09] MEDS: Furosemide 40 MG Tab PO SCH ×2 (08:10→15:02)
[2022-01-09] MEDS: Iron Sucrose Complex 100 MG/5 ML SDV IVPUSH SCH (08:16)
[2022-01-09] MEDS: Finasteride 5 MG Tab PO SCH (11:49)
[2022-01-09] MEDS: Tamsulosin 0.4 MG Cap.ER PO SCH (20:48)
[2022-01-09] MEDS: atorvaSTATin 20 MG Tab PO SCH (20:48)
[2022-01-09] MEDS: Sodium Chloride 0.9% 10 ML Syringe FLUSH PRN (20:49)
[2022-01-10] MEDS: Heparin Sodium 5,000 Units/ML Vial SUBCUT SCH ×3 (05:22→21:33)
[2022-01-10] MEDS: Levothyroxine 88 MCG Tab PO SCH (05:22)
[2022-01-10 06:07] LABS: ANION GAP 14.3 mEq/L (7-13)
[2022-01-10] MEDS ORDERED: Sodium Polystyrene Sulfonate 15 GM/60 ML Susp 60 ML Bot PO ONE (08:16)
[2022-01-10] MEDS: Aspirin 81 MG Tab.EC PO SCH (09:03)
[2022-01-10] MEDS: Carvedilol 3.125 MG Tab PO SCH ×2 (09:04→17:50)
[2022-01-10] MEDS: Acetaminophen 325 MG Tab PO PRN (09:05)
[2022-01-10] MEDS: Iron Sucrose Complex 100 MG/5 ML SDV IVPUSH SCH (09:12)
[2022-01-10] MEDS: Furosemide 40 MG Tab PO SCH (09:12)
[2022-01-10] MEDS: Finasteride 5 MG Tab PO SCH (13:04)
[2022-01-10] MEDS: Loratadine 10 MG Tab PO SCH (13:04)
[2022-01-10] MEDS: Tamsulosin 0.4 MG Cap.ER PO SCH (21:33)
[2022-01-10] MEDS: atorvaSTATin 20 MG Tab PO SCH (21:33)
[2022-01-11] MEDS: Levothyroxine 88 MCG Tab PO SCH (05:10)
[2022-01-11] MEDS: Heparin Sodium 5,000 Units/ML Vial SUBCUT SCH ×3 (05:10→21:52)
[2022-01-11 05:54] LABS: ANION GAP 13.3 mEq/L (7-13)
[2022-01-11] MEDS: Aspirin 81 MG Tab.EC PO SCH (09:47)
[2022-01-11] MEDS: Carvedilol 3.125 MG Tab PO SCH ×2 (09:47→18:00)
[2022-01-11] MEDS: Finasteride 5 MG Tab PO SCH (13:54)
[2022-01-11] MEDS: Tamsulosin 0.4 MG Cap.ER PO SCH (20:09)
[2022-01-11] MEDS: atorvaSTATin 20 MG Tab PO SCH (20:10)
[2022-01-11] MEDS: Melatonin 3 MG Tab PO PRN (20:10)
[2022-01-11] MEDS: Acetaminophen/HYDROcodone 325-5 MG Tab PO PRN (21:52)
[2022-01-12] MEDS: Acetaminophen/HYDROcodone 325-5 MG Tab PO PRN ×3 (03:51→21:23)
[2022-01-12] MEDS: Levothyroxine 88 MCG Tab PO SCH (05:12)
[2022-01-12] MEDS: Heparin Sodium 5,000 Units/ML Vial SUBCUT SCH ×3 (05:12→21:24)
[2022-01-12 06:54] LABS: ANION GAP 13.2 mEq/L (7-13)
[2022-01-12] MEDS: Carvedilol 3.125 MG Tab PO SCH ×2 (09:32→17:59)
[2022-01-12] MEDS: Aspirin 81 MG Tab.EC PO SCH (09:36)
[2022-01-12] MEDS: Acetaminophen 325 MG Tab PO PRN ×2 (09:50→23:22)
[2022-01-12] MEDS: Finasteride 5 MG Tab PO SCH (12:30)
[2022-01-12] MEDS: Loratadine 10 MG Tab PO SCH (12:30)
[2022-01-12] MEDS: atorvaSTATin 20 MG Tab PO SCH (21:22)
[2022-01-12] MEDS: Melatonin 3 MG Tab PO PRN (21:23)
[2022-01-13] MEDS: Levothyroxine 88 MCG Tab PO SCH (05:17)
[2022-01-13] MEDS: Acetaminophen/HYDROcodone 325-5 MG Tab PO PRN (05:17)
[2022-01-13] MEDS: Heparin Sodium 5,000 Units/ML Vial SUBCUT SCH ×3 (05:17→21:11)
[2022-01-13 06:33] LABS: ANION GAP 12.5 mEq/L (7-13)
[2022-01-13] MEDS: Aspirin 81 MG Tab.EC PO SCH (08:07)
[2022-01-13] MEDS: Carvedilol 3.125 MG Tab PO SCH ×2 (08:07→17:18)
[2022-01-13] MEDS ORDERED: Sodium Chloride 0.9% 500 ML IV SCH (09:30)
[2022-01-13] MEDS: Finasteride 5 MG Tab PO SCH (12:21)
[2022-01-13] MEDS: atorvaSTATin 20 MG Tab PO SCH (21:08)
[2022-01-13] MEDS: Melatonin 3 MG Tab PO PRN (21:08)
[2022-01-13 21:21] LABS: ANION GAP 10.7 mEq/L (7-13)
[2022-01-13] MEDS ORDERED: Sodium Chloride 0.9% 500 ML IV ONE (22:32)
[2022-01-14] MEDS: Acetaminophen 325 MG Tab PO PRN (01:41)
[2022-01-14 05:28] LABS: ANION GAP 8.4 mEq/L (7-13)
[2022-01-14] MEDS: Levothyroxine 88 MCG Tab PO SCH (05:50)
[2022-01-14] MEDS: Heparin Sodium 5,000 Units/ML Vial SUBCUT SCH (05:51)
[2022-01-14 07:53] VITALS: BP 126/54; PULSE 62
[2022-01-14] MEDS: Aspirin 81 MG Tab.EC PO SCH (08:03)
[2022-01-14] MEDS: Carvedilol 3.125 MG Tab PO SCH (08:03)
== END 2022-01-14 10:30 | DRG 291 ==
LOC: DL.ED 14:12 → DL.MS 16:04 → DL.ED 16:21
PROVIDERS: ADMIT Internal Medicine; ATTEND Internal Medicine
PROC: 0W993ZZ Drainage of Right Pleural Cavity, Percutaneous Approach (ICD-10-PCS; principal; 2021-12-24)
DX: I13.0 Hypertensive heart and chronic kidney disease with heart failure and stage 1 through stage 4 chronic kidney disease, or unspecified chronic kidney disease (principal); I50.43 Acute on chronic combined systolic (congestive) and diastolic (congestive) heart failure; R94.6 Abnormal results of thyroid function studies; N18.9 Chronic kidney disease, unspecified; D64.9 Anemia, unspecified; J96.01 Acute respiratory failure with hypoxia; N17.9 Acute kidney failure, unspecified; N18.4 Chronic kidney disease, stage 4 (severe); J44.9 Chronic obstructive pulmonary disease, unspecified; J98.11 Atelectasis; E87.0 Hyperosmolality and hypernatremia; J90 Pleural effusion, not elsewhere classified; Z28.311 Partially vaccinated for COVID-19; Z20.822 Contact with and (suspected) exposure to COVID-19; H54.7 Unspecified visual loss; E78.5 Hyperlipidemia, unspecified; I25.10 Atherosclerotic heart disease of native coronary artery without angina pectoris; I42.9 Cardiomyopathy, unspecified; E03.9 Hypothyroidism, unspecified; I25.2 Old myocardial infarction; M19.90 Unspecified osteoarthritis, unspecified site; R33.9 Retention of urine, unspecified; D63.1 Anemia in chronic kidney disease; D50.9 Iron deficiency anemia, unspecified; E11.22 Type 2 diabetes mellitus with diabetic chronic kidney disease; G43.909 Migraine, unspecified, not intractable, without status migrainosus; N28.1 Cyst of kidney, acquired; E78.00 Pure hypercholesterolemia, unspecified; F03.90 Unspecified dementia, unspecified severity, without behavioral disturbance, psychotic disturbance, mood disturbance, and anxiety; Z79.890 Hormone replacement therapy; Z79.82 Long term (current) use of aspirin; Z79.899 Other long term (current) drug therapy; Z95.5 Presence of coronary angioplasty implant and graft; Z28.82 Immunization not carried out because of caregiver refusal
CPT/HCPCS: 0241U; 36415; 51702; 71045; 76604; 76770; 80048; 80053; 81001; 82042; 82272; 82306; 82607; 82728; 82945; 82947; 83540; 83550; 83605; 83615; 83735; 83880; 83986; 84155; 84157; 84439; 84443; 84484; 85025; 85027; 85610; 85651; 85730; 86140; 87070; 87086; 87635; 89051; 93010; 96374; 97116; 97161; 97166; 97530; 97535; 99284; 99285; A9270-GY; J0456; J0881; J1644; J1756; J1940; J3486; J3490; J7030; J7040; J7050; U0002